=== PATIENT | male | born 1945 | race Caucasian/White ===

== ENCOUNTER → 2017-11-21 | Outpatient (REF) | payer MEDICARE, OTHER ==
[2017-11-21 18:28] LABS: BASO # 0.1 10^3/uL (0.0-0.2); BASO % 0.6 % (0.0-1.0); EOS # 0.2 10^3/uL (0.0-0.50); HEMATOCRIT 42.8 % (42.0-52.0); HEMOGLOBIN 14.7 g/dl (13.5-17.5); IMMATURE GRANULOCYTE % 0.3 % (0-3.0); LYMPH # 2.1 10^3/uL (1.5-4.5); LYMPH % 24.9 % (24.0-44.0); MEAN CORPUSCULAR HEMOGLOBIN 33.6 pg (27.0-33.0); MEAN CORPUSCULAR HGB CONC 34.3 g/dl (32.0-36.5); MEAN CORPUSCULAR VOLUME 97.9 fl (80.0-96.0); MONO # 0.8 10^3/uL (0.0-0.8); MONO % 9.2 % (0.0-5.0); NEUTROPHILS # 5.4 10^3/uL (1.8-7.7); PLATELET COUNT, AUTOMATED 176 10^3/uL (150-450); RED BLOOD COUNT 4.37 10^6/uL (4.30-6.10); RED CELL DISTRIBUTION WIDTH 12.4 % (11.5-14.5); WHITE BLOOD COUNT 8.6 10^3/uL (4.0-10.0)
[2017-11-21 19:30] LABS: ALBUMIN 3.9 GM/DL (3.2-5.2); ALBUMIN/GLOBULIN RATIO 1.03 (1.00-1.93); ALKALINE PHOSPHATASE 56 U/L (45-117); ALT/SGPT 25 U/L (12-78); ANION GAP 11 MEQ/L (8-16); AST/SGOT 25 U/L (7-37); BILIRUBIN,TOTAL 0.5 MG/DL (0.2-1.0); BLOOD UREA NITROGEN 34 MG/DL (7-18); CALCIUM LEVEL 9.3 MG/DL (8.8-10.2); CARBON DIOXIDE LEVEL 27 MEQ/L (21-32); CHLORIDE LEVEL 103 MEQ/L (98-107); CHOLESTEROL LEVEL 181 MG/DL (<200); CHOLESTEROL RISK RATIO 5.484 (<5); CREATININE FOR GFR 1.74 MG/DL (0.70-1.30); GLUCOSE, FASTING 94 MG/DL (70-100); HDL CHOLESTEROL 33 MG/DL (>40); NON-HDL-C 148 MG/DL; POTASSIUM SERUM 3.5 MEQ/L (3.5-5.1); SODIUM LEVEL 141 MEQ/L (136-145); TOTAL PROTEIN 7.7 GM/DL (6.4-8.2); TRIGLYCERIDES LEVEL 245 MG/DL (<150)
== END ==
LOC: M SFHCCLAY 13:57
DX: I12.9 Hypertensive chronic kidney disease with stage 1 through stage 4 chronic kidney disease, or unspecified chronic kidney disease (principal); N18.3 Chronic kidney disease, stage 3 (moderate); E78.5 Hyperlipidemia, unspecified; E03.9 Hypothyroidism, unspecified
CPT/HCPCS: 84443

== ENCOUNTER → 2018-06-14 | Outpatient (REF) | payer MEDICARE, OTHER ==
[~2018-06-14] MED LIST: ASPI325T OR; COUM1TAB17 OR; COZA25TA8 OR; KLOR10TA OR; LASI40TA OR; LEVO75TA2 OR; LIDO5DIS TD; LISI10TA4 OR; LOVA20TA2 OR; METO-743 OR; NASONEX; NITR0.3D TD; PRIL20CA OR; TOPI100T OR; TRIC145T19 OR; TYLENOL #3 OR; ZOCO40TA OR
[2018-06-15 13:04] LABS: BASO # 0.1 10^3/uL (0.0-0.2); BASO % 0.7 % (0.0-1.0); EOS # 0.2 10^3/uL (0.0-0.50); EOS % 2.5 % (0.0-3.0); HEMATOCRIT 44.4 % (42.0-52.0); HEMOGLOBIN 14.9 g/dl (13.5-17.5); LYMPH # 2.6 10^3/uL (1.5-4.5); LYMPH % 35.5 % (24.0-44.0); MEAN CORPUSCULAR HEMOGLOBIN 33.5 pg (27.0-33.0); MEAN CORPUSCULAR HGB CONC 33.6 g/dl (32.0-36.5); MEAN CORPUSCULAR VOLUME 99.8 fl (80.0-96.0); MONO # 0.7 10^3/uL (0.0-0.8); NEUTROPHILS # 3.7 10^3/uL (1.8-7.7); PLATELET COUNT, AUTOMATED 171 10^3/uL (150-450); RED BLOOD COUNT 4.45 10^6/uL (4.30-6.10); WHITE BLOOD COUNT 7.2 10^3/uL (4.0-10.0)
[2018-06-15 13:32] LABS: ALBUMIN 4.6 GM/DL (3.2-5.2); BILIRUBIN,TOTAL 0.5 MG/DL (0.2-1.0); CHOLESTEROL RISK RATIO 8.037 (<5); CREATININE FOR GFR 2.07 MG/DL (0.70-1.30); GLOMERULAR FILTRATION RATE 33.5 (>42); THYROID STIMULATING HORMONE 2.47 uIU/ML (0.358-3.740); TOTAL PROTEIN 7.8 GM/DL (6.4-8.2)
== END ==
LOC: M SFHCCLAY 15:03
PROVIDERS: ATTEND Family Medicine
DX: I10 Essential (primary) hypertension (principal); E03.9 Hypothyroidism, unspecified; E78.5 Hyperlipidemia, unspecified
CPT/HCPCS: 80053; 80061; 84443; 85025; G0463

== ENCOUNTER → 2018-06-29 | Outpatient (CLI) | payer MEDICARE, BC, OTHER ==
[~2018-06-29] MED LIST changes: +/WARF5TA OR; -COUM1TAB17 OR; -METO-743 OR; +TOPR50TA OR
--- NOTE | 2018-06-29 12:06 | REP ---
MRI RIGHT SHOULDER: TECHNIQUE: Axial T2 fat sat, gradient echo, sagittal oblique T2 fat sat, coronal oblique T1, T2 fat sat. There is a complete full-thickness tear of the supraspinatus tendon with retraction, the degree of retraction appears to be about 5 cm. There is increased signal in the infraspinatus tendon as well as the subscapularis tendon compatible with tendinosis and possibly partial tears. There are mild hypertrophic degenerative changes of the acromioclavicular joint. The acromion is type 1. The biceps tendon is not well visualized proximally. I do not see the biceps at the biceps labral complex. It is not well visualized in the superior aspect of the bicipital groove. I suspect it is torn. It is seen more inferiorly, just anterior to the bicipital groove, with mild surrounding fluid. The deltoid muscle demonstrates no abnormal signal. At the biceps labral complex, there is fraying and again a normal insertion of the biceps tendon is not seen. Superior labrum also appears diffusely frayed. Otherwise, no definite labral tear is seen. There is no bone marrow edema or occult fracture. There is moderate joint effusion, with fluid extending into the subacromial subdeltoid bursae. There appears to be an old nondisplaced fracture at the distal end of the clavicle. IMPRESSION: Complete full thickness tear of the supraspinatus tendon with about 5 cm of retraction. There is tendinosis and possible partial tearing of the infraspinatus and subscapularis tendons. There are mild hypertrophic degenerative changes of the acromioclavicular joint. I suspect a tear of the proximal biceps tendon. Biceps is not visualized inserting onto the superior labrum. A portion of the biceps tendon is visualized inferiorly just anterior to the bicipital groove with mild surrounding fluid. There is fraying of the biceps labral complex and superior labrum diffusely. Moderate joint effusion, with fluid extending into the subacromial subdeltoid bursae. There appears to be an old nondisplaced fracture at the distal end of the clavicle. Electronically Signed by Bal Garcia MD 06/29/2018 03:34 P
== END ==
LOC: M PLARAD 09:30
PROVIDERS: ATTEND Family Medicine
DX: S46.911A Strain of unspecified muscle, fascia and tendon at shoulder and upper arm level, right arm, initial encounter (principal); X58.XXXA Exposure to other specified factors, initial encounter; Y92.9 Unspecified place or not applicable; M19.011 Primary osteoarthritis, right shoulder

== ENCOUNTER → 2018-12-12 | Outpatient (CLI) | payer MEDICARE, BC, OTHER ==
[~2018-12-12] MED LIST changes: -/WARF5TA OR; +ACET-683 PO; +COUM1TAB17 OR; +ECOT81TA5 PO; +FENO200C PO; +FISH1000 PO; +FURO20TA2 PO; +KLOR10TA76 PO; +LEVO75TA4 PO; +LISI10TA4 PO; +LOVA40TA PO; +METO-743 OR; +MOME50SP NARES; +NITR4TASL SL; +OMEP40CA2 PO; +PLAV1TAB2 PO; +TOPA50TA8 PO; -TOPR50TA OR; +TOPR50TA PO; +TYLETAB14 PO
--- NOTE | 2018-12-12 14:06 | REP ---
CHEST, TWO VIEWS: COMPARISON: 10/07/2011 There is no acute infiltrate. The heart is not enlarged. There is calcification and tortuosity of the thoracic aorta. The mediastinal silhouette is unchanged. Multiple sternal wires and mediastinal clips are present. There are mild degenerative changes of the spine. IMPRESSION: No acute infiltrate. Electronically Signed by Bal Garcia MD 12/13/2018 09:32 A
== END ==
LOC: M RAD 11:10
PROVIDERS: ATTEND Internal Medicine Cardiovascular Disease
DX: Z01.818 Encounter for other preprocedural examination (principal); M19.011 Primary osteoarthritis, right shoulder

== ENCOUNTER 2018-12-26 07:30 | Inpatient (IN) | payer MEDICARE, BC, OTHER ==
[~2018-12-26] VITALS: Ht 165.1 cm; Wt 96.6 kg
[2018-12-28] MEDS ORDERED: LR 1,000 ML IV ONE (07:00)
[2018-12-28] MEDS ORDERED: MIDAZOLAM INJ 2 MG/2 ML VIAL (J2250) As Ordered ONE ×2 (10:55→11:30)
[2018-12-28] MEDS ORDERED: fentaNYL 100 MCG/2 ML INJECTION (J3010) As Ordered ONE ×2 (10:55→11:30)
[2018-12-28] MEDS ORDERED: ceFAZolin 1GM INJ (J0690 PER 500MG) As Ordered ONE (10:59)
[2018-12-28] MEDS ORDERED: EPINEPHrine INJ 1 MG/ML 1ML AMP As Ordered ONE (11:00)
[2018-12-28] MEDS ORDERED: BUPIVACAINE HCL 0.25% 30 ML VIAL As Ordered ONE (11:11)
[2018-12-28] MEDS ORDERED: dexameTHASONE 4 MG/ML 1ML VIAL (J1100) As Ordered ONE (11:30)
[2018-12-28] MEDS ORDERED: ONDANSETRON 4MG/2ML VIAL (J2405) As Ordered ONE (11:30)
[2018-12-28] MEDS ORDERED: LIDOCAINE 2% INJ 100 MG/5 ML SDV (FOR ANES.) As Ordered ONE (11:31)
[2018-12-28] MEDS ORDERED: PROPOFOL 200 MG/20 ML VIAL As Ordered ONE (11:31)
[2018-12-28] MEDS ORDERED: ROCURONIUM BROMIDE 50 MG/5 ML VIAL As Ordered ONE (11:31)
[2018-12-28] MEDS ORDERED: TRANEXAMIC ACID 100 MG/ML 10ML VIAL As Ordered ONE (12:06)
[2018-12-28] MEDS ORDERED: BUPIVACAINE LIPOSOME/PF 1.3% 20ML VIAL (13.3MG/ML)(EXPAREL)(C9290 PER1MG) As Ordered ONE (12:14)
[2018-12-28] MEDS ORDERED: ePHEDrine SULFATE 25 MG/5 ML(5MG/ML) SYRINGE As Ordered ONE (14:13)
[2018-12-28] MEDS ORDERED: HYDROMORPHONE HCL 0.5 MG/ 0.5 ML SYRINGE (J1170 PER 1) IV PRN (15:00)
[2018-12-28] MEDS ORDERED: ACETAMINOPHEN TAB 650MG DOSE (2X325MG) PO PRN (15:00)
[2018-12-28] MEDS ORDERED: fentaNYL 100 MCG/2 ML INJECTION (J3010) IV PRN (15:00)
[2018-12-28] MEDS ORDERED: PROMETHAZINE INJ 25 MG/ML VIAL (J2550) IV PRN (15:00)
[2018-12-28] MEDS ORDERED: ONDANSETRON 4MG/2ML VIAL (J2405) IV PRN (15:00)
[2018-12-28] MEDS ORDERED: oxyCODONE 5MG TAB PO PRN (15:00)
[2018-12-28] MEDS ORDERED: LR 1,000 ML IV SCH (15:00)
[2018-12-28] MEDS ORDERED: PERCOCET 5MG/325MG TAB PO PRN (15:00)
[2018-12-28] MEDS ORDERED: METOCLOPRAMIDE INJ 10MG/2ML VIAL (J2765) IV PRN (15:00)
[2018-12-28] MEDS ORDERED: MORPHINE 4 MG/ML 1ML VIAL/SYRINGE (J2270) IV PRN (15:00)
[2018-12-28 16:00] VITALS: BP 126/74
[2018-12-28 16:20] VITALS: BP 118/67
[2018-12-28 17:00] VITALS: BP 112/66
[2018-12-28 18:00] VITALS: BP 135/78
--- NOTE | 2018-12-28 18:28 | RO ---
DATE OF PROCEDURE: 12/28/2018 PREOPERATIVE DIAGNOSIS: Right shoulder osteoarthritis, large rotator cuff tear. POSTOPERATIVE DIAGNOSIS: Right shoulder osteoarthritis, large rotator cuff tear. PLANNED PROCEDURE: Right reverse total shoulder arthroplasty. PROCEDURE PERFORMED: (dictation cut off). . SURGEON: Crow Leal MD GROUP PRACTICE PEDIATRICIAN: Meryl Oliveira TYPE OF ANESTHETIC: General anesthetic. OPERATIVE PREAMBLE: This 73-year-old man had right shoulder osteoarthritis with proximal humeral head migration and a large rotator cuff tear. We talked about the pros, cons, risks, benefits of nonsurgical versus surgical management in the form of a reverse total shoulder arthroplasty. I reminded him of the specific surgical risks in preoperative holding including but not limited to infection, pain, stiffness, bleeding, instability, dislocation, fracture, anesthetic risks and . He wished to go ahead, and I signed the right upper extremity. Preoperative nerve block was also performed. DESCRIPTION OF PROCEDURE: The patient was brought to the operating theatre. He was administered a general anesthetic. Two grams of IV Ancef and 2 grams of IV tranexamic was administered prior to the start of the case. The patient was transferred to the beach chair and Spider arm positioner was used for the patient's right side. All bony prominences were padded. Leg positioner was used. Face mask was applied, ensuring to protect the eyes. All bony prominences were padded. Well arm corona was used on the patient's left side. General anesthesia was induced, and the patient was set up at a 45-degree angle. Right upper extremity was prepped and draped in the usual sterile fashion. A preoperative time-out was performed to confirm the site and the patient and the operation. I began by making a standard deltopectoral incision just lateral to the coracoid process. Carried this dissection down through skin and subcutaneous tissue achieving meticulous hemostasis. Identified the interval between the deltoid and pectoralis major as well as the cephalic vein. There was one large crossing tributary of the cephalic vein which I ligated and divided. I placed the Quintana retractor and then identified the conjoined tendon. I incised along the lateral border of the conjoined tendon and muscle. I then placed Quintana retractor underneath this and identified the subscapularis tendon as well as the crossing anterior humeral circumflex vessels. I placed a number of ligating sutures in this in a [id number] fashion using #2-0 Vicryl. I then divided the crossing vessels. I identified the biceps groove and sheath, I entered that and then performed a tenodesis using #2 FiberWire. I transected and removed the proximal end of the long head of the biceps. I then performed subscapularis tenotomy, retracted this back towards the glenoid. I excised the capsule. I developed a plane along the anterior humeral neck and metaphyseal region, staying right on bone. I developed the subscapularis tenotomy superiorly and inferiorly, ensuring to protect the axillary nerve. I achieved good mobility of this and visualization down to the level of the glenoid. I fully dislocated the shoulder using external rotation. I then placed the broaches and broached up to a size 16 broach. The intramedullary guide for the metaphyseal epiphysis reamer was then used, sized as a centered size 1 standard and the epiphyseal region reamed. I used the intramedullary cutting guide. I placed this onto bone and using a small blue juju, I achieved appropriate version in my cut of 20 degrees retroverted. I placed the guide down to bone and removed the intramedullary guide. I made my head cut and finished this off with a broad osteotome, removed the head. Metaphyseal cut protector was then placed. Using a combination of curved retractors, I then exposed the glenoid. I removed the labrum from all around the glenoid. I examined the glenoid. It appeared osteoarthritic as well as there was a completely deficient rotator cuff superiorly. I used the sizing guide as well as direct visualization to place the pin center-center in the glenoid staying slightly posterior and inferior. I then reamed using standard size reamer down to bleeding bone. I then used the center peg drill to drill a center peg. All pins and guides were removed. I also reamed the superior aspect of the glenoid over top of the superior aspect of the glenoid, ensured that there was no interposed soft tissue. Thoroughly irrigated the center drill peg. I then inserted, the cementless Metaglene baseplate using light taps with a mallet. This seated down nicely. I then inserted the locking screws, first the inferior, then the superior, then the anterior, then the posterior. These measured 42 mm inferiorly, 48 mm superiorly, and 24 mm anteriorly and posteriorly. All screws achieved good bite, were seated down and locked in place. I then turned my attention back to the humerus. I inserted the broach followed by the intramedullary guide to determine the angulation of the epiphysis. This was at neutral and size 16 humeral stem. I trialed this as well as a 38 plus 3 mm polyethylene component and standard size Glenosphere 38 mm. This was good and solid; however, I sized up the polyethylene, and it was definitely even more solid and tight appropriate size. Range of motion was full in flexion and extension, internal and external rotation. No evidence of instability or dislocating and no notching or impingement of the components. The trial components were removed. Intramedullary canal was thoroughly irrigated, pulse lavaged as well as the baseplate. 38 mm Glenosphere was screwed down, impacted, and I went back and forth between screwing and impacting until it was definitely achieved very solid bite. Afterwards, the modular humeral stem size 16 was then assembled with the modular centered epiphysis size 1. The size 1 centered cementless epiphysis was then assembled at 0 degrees with the site 16 modular humeral stem. This was impacted in again 20 degrees of external rotation down into the humeral canal. Achieved good solid bite with good rotational stability. Epiphysis was thoroughly irrigated with pulse lavage followed by insertion of humeral polyethylene standard size cup 38 plus 6 mm. This was tapped into position and seated nicely down all the way around. Shoulder was reduced and again stability was checked in all directions. It was definitely stable. Conjoined tendon was appropriately tensioned as was the deltoid musculature. There was no obvious impingement. The wound was thoroughly irrigated. 20 mL of Exparel mixed with 20 mL of normal saline was infiltrated in and around the incision in the subcutaneous tissues. Subscapularis was repaired with interrupted [id number] #2 FiberWire. The deltopectoral interval was closed with interrupted #1 Vicryl suture. Subcutaneous tissue was closed with running #2-0 Vicryl suture. The skin was cleaned with a wet and dry dressing. The skin was closed with running #3-0 Monocryl. Steri-Strips cut in half were then applied along the length of the incision followed by Adaptic, 4 x 8 gauze, ABD dressing and cloth tape. The patient was put into a sling and avoided extension of the upper arm. The patient was woken up from general anesthetic. He was transferred off the operating table and taken to the postanesthetic care unit in stable condition. All sponge, needle and instrument counts were correct. No complications. Estimated blood loss: 200 mL. PLAN: The patient is to be admitted to the hospital for one day for adequate pain control. He will likely be discharged home tomorrow if he has adequate pain control and follow up in the office in 2 weeks' time. He should avoid extension of the upper arm and external rotation, but he can come out of the sling four times a day for elbow, wrist and hand exercises. The marketing operations assistant, Meryl Oliveira, was instrumental in holding retractors, aiding in visualization, cutting sutures and assembling and trialing implants.
[2018-12-28 20:00] VITALS: BP 131/69
[2018-12-28 22:00] VITALS: BP 133/68
[2018-12-29 02:00] VITALS: BP 134/67
[2018-12-29] MEDS: PERCOCET 5MG/325MG TAB PO PRN ×2 (03:20→09:37)
[2018-12-29 06:00] VITALS: BP 148/79
[2018-12-29] MEDS ORDERED: PERC5TAB12 PO (06:12)
--- NOTE | 2018-12-29 07:53 | IPN ---
DATE: 12/29/2018 CHIEF COMPLAINT: Postop day #1 right reverse total shoulder arthroplasty. HISTORY OF PRESENT ILLNESS: This is a pleasant 73-year-old man who underwent right reverse shoulder arthroplasty yesterday afternoon. He is doing well postoperative day #1 seen in the [facility]. No complaints or concerns. Pain is coming little bit now. He is hungry but has not yet eaten breakfast. No concerns from the nursing staff overnight. PHYSICAL EXAMINATION: Well-appearing 73-year-old man. Sitting up. He arouses easily. Alert and oriented times three. Bulky dressing in situ. No strikethrough. Underneath the gauze appears dry. Normal sensation to the hand and median radial ulnar nerve distributions. Good motor function. Hands warm well perfused. Strong radial pulse. ASSESSMENT/PLAN: This 73-year-old man postop day #1 right TRSA. He can be discharged home today if he is comfortable and eating and drinking well. This will be in conjunction with Shreya lockett nurse practitioner. The patient understands. Followup in the office in 2 weeks. I have emphasized to be mostly in the sling avoiding extension and external rotation and he can come out of the sling 4 times a day for elbow wrist and hand exercises.
[2018-12-29] MEDS ORDERED: FLUBLOK(EGG FREE)(QUAD)INFLUENZA VACC 0.5ML SYRINGE (90682)18YRS&OLDER IM ONE (09:00)
[2018-12-29 10:00] VITALS: BP 148/80
== END 2018-12-29 12:35 | disposition home or self-care (01) | DRG 483 ==
LOC: M OR 12-28 09:45 → M MS5PR 12-28 15:50
PROVIDERS: ADMIT Orthopaedic Surgery Sports Medicine; ATTEND Orthopaedic Surgery Sports Medicine
PROC: 0RRJ00Z Replacement of Right Shoulder Joint with Reverse Ball and Socket Synthetic Substitute, Open Approach (ICD-10-PCS; principal; 2018-12-28 11:00)
DX: M19.011 Primary osteoarthritis, right shoulder (principal); I12.9 Hypertensive chronic kidney disease with stage 1 through stage 4 chronic kidney disease, or unspecified chronic kidney disease; E03.9 Hypothyroidism, unspecified; N18.3 Chronic kidney disease, stage 3 (moderate); E78.5 Hyperlipidemia, unspecified; K21.9 Gastro-esophageal reflux disease without esophagitis; M75.121 Complete rotator cuff tear or rupture of right shoulder, not specified as traumatic; G47.33 Obstructive sleep apnea (adult) (pediatric)

== ENCOUNTER → 2019-08-22 | Outpatient (REF) | payer MEDICARE, OTHER ==
[~2019-08-22] MED LIST changes: -OMEP40CA2 PO; +OMEP40CA97 PO; +PERC5TAB12 PO
[2019-08-23 12:07] LABS: BASO # 0.1 10^3/uL (0.0-0.2); BASO % 0.9 % (0.0-1.0); EOS # 0.1 10^3/uL (0.0-0.5); EOS % 2.1 % (0.0-3.0); HEMATOCRIT 42.8 % (42.0-52.0); LYMPH # 1.8 10^3/uL (1.5-5.0); LYMPH % 27.9 % (24.0-44.0); MEAN CORPUSCULAR HEMOGLOBIN 31.7 pg (27.0-33.0); MEAN CORPUSCULAR HGB CONC 32.7 g/dl (32.0-36.5); MEAN CORPUSCULAR VOLUME 97.1 fl (80.0-96.0); MONO # 0.6 10^3/uL (0.0-0.8); MONO % 9.2 % (0.0-5.0); NEUTROPHILS # 3.9 10^3/uL (1.5-8.5); NEUTROPHILS % 59.7 % (36.0-66.0); PLATELET COUNT, AUTOMATED 155 10^3/uL (150-450); RED BLOOD COUNT 4.41 10^6/uL (4.30-6.10); WHITE BLOOD COUNT 6.5 10^3/uL (4.0-10.0)
[2019-08-23 12:48] LABS: ALBUMIN 3.9 GM/DL (3.2-5.2); BILIRUBIN,TOTAL 0.6 MG/DL (0.2-1.0); CALCIUM LEVEL 9.4 MG/DL (8.8-10.2); CHOLESTEROL RISK RATIO 6.407 (<5); CREATININE FOR GFR 1.83 MG/DL (0.70-1.30); GLOMERULAR FILTRATION RATE 38.5 (>42); POTASSIUM SERUM 3.7 MEQ/L (3.5-5.1); THYROID STIMULATING HORMONE 2.29 uIU/ML (0.358-3.740); TOTAL PROTEIN 7.4 GM/DL (6.4-8.2)
== END ==
LOC: M SFHCCLAY 14:27
PROVIDERS: ATTEND Family Medicine
DX: I12.9 Hypertensive chronic kidney disease with stage 1 through stage 4 chronic kidney disease, or unspecified chronic kidney disease (principal); N18.3 Chronic kidney disease, stage 3 (moderate); E78.5 Hyperlipidemia, unspecified; E03.9 Hypothyroidism, unspecified
CPT/HCPCS: 80053; 80061; 84443; 85025; G0463

== ENCOUNTER → 2019-12-16 | Outpatient (REF) | payer MEDICARE, OTHER ==
[2019-12-17 12:45] LABS: HEMATOCRIT 40.3 % (42.0-52.0); HEMOGLOBIN 12.8 g/dl (13.5-17.5); MEAN CORPUSCULAR HEMOGLOBIN 30.4 pg (27.0-33.0); MEAN CORPUSCULAR HGB CONC 31.8 g/dl (32.0-36.5); MEAN CORPUSCULAR VOLUME 95.7 fl (80.0-96.0); PLATELET COUNT, AUTOMATED 158 10^3/uL (150-450); RED BLOOD COUNT 4.21 10^6/uL (4.30-6.10); WHITE BLOOD COUNT 6.8 10^3/uL (4.0-10.0)
[2019-12-17 13:00] LABS: HEMOGLOBIN A1c 7.6 %
[2019-12-17 13:01] LABS: ALBUMIN 4.1 GM/DL (3.2-5.2); BILIRUBIN,TOTAL 0.7 MG/DL (0.2-1.0); CALCIUM LEVEL 9.8 MG/DL (8.8-10.2); CHOLESTEROL RISK RATIO 6.857 (<5); CREATININE FOR GFR 1.81 MG/DL (0.70-1.30); POTASSIUM SERUM 3.9 MEQ/L (3.5-5.1); THYROID STIMULATING HORMONE 0.882 uIU/ML (0.358-3.740); TOTAL PROTEIN 7.7 GM/DL (6.4-8.2)
== END ==
LOC: M SFHCCLAY 11:56
PROVIDERS: ATTEND Family Medicine
DX: I12.9 Hypertensive chronic kidney disease with stage 1 through stage 4 chronic kidney disease, or unspecified chronic kidney disease (principal); N18.9 Chronic kidney disease, unspecified; E78.2 Mixed hyperlipidemia; E03.9 Hypothyroidism, unspecified; R73.01 Impaired fasting glucose

== ENCOUNTER 2021-02-11 11:50 | Emergency (ER) | payer MEDICARE, BC, OTHER ==
[~2021-02-11] VITALS: Ht 167.6 cm; Wt 91.8 kg
[~2021-02-11 11:50] MED LIST changes: -KLOR10TA76 PO; +LISI10TA22 PO; -LISI10TA4 PO; +OMEP40CA4 PO; -OMEP40CA97 PO; +POTA-136 PO
--- OUTSIDE RECORDS SUMMARY | 2021-02-11 12:00 | CCD ---
Author Author [facility] Organization [facility] Address Unknown Phone Unavailable Care Team Providers Care Tapper Balance Wheel Screw Hole Name Role Phone Devonte Strauss Unavailable PROBLEMS Type Condition ICD9-CM Code FBT25-DV Code Onset Dates Condition S tatus W/U Status Risk SNOMED Code Notes Problem Hx of coronary artery bypass graft Z95.1 Activ e confirmed 961790532 Problem Lumbar back pain with radiculopathy affecting le ft lower extremity M54.17 Active confirmed 636004530 Problem Sleep apnea in adult G47.33 Active confirmed 32043384 Problem Hypertension I10 Active confirmed 6729147 3 Problem GERD (gastroesophageal reflux disease) K21.9 A ctive confirmed 237536553 Problem Hypothyroid E03.9 Active confirmed 03308879 Problem Memory impairment R41.3 Active confirmed 38 2599817 Problem Hypertensive renal disease, stage 1 through stage 4 or unspecified chronic kidney disease I12.9 Active confirmed 3715830 6 Problem Type 2 diabetes mellitus wit hout complication, without long-term current use of insulin E11.9 Active confirmed 093431022 Problem Hyperlipemia E78.5 Active confirmed 0801289 4 Problem Hx of colonic polyp Z86.010 Active confirmed 056087403 Problem Chronic kidney disease (CKD) stage G3a/A1, moderately decreased glomerular filtration rate (GFR) between 45-59 mL/min/1.73 square meter and albuminuria creatinine ratio less than 30 mg/g N18.3 Act nay confirmed 813305078 Problem Tobacco use disorder F17.200 Active confirmed 058860607 Problem Hypertensive kidney disease I12.9 Active confirmed 04496934 Problem Rotator cuff arthropathy of right shoulder M12.811 Active confirmed 80764760546042182 Problem Primary osteoarthritis of right shoulder M19.011 Active confirmed [id number] ALLERGIES No Known Allergies ENCOUNTERS from 1945 to 2020-12-14 Encounter Location Date Provider Diagnosis [facility] [phone] ELISA [place] [id number] 08 Dec, 2020 Devonte Strauss IMMUNIZATIONS Vaccine Route Administration Date Status Influenza 18 yrs & older Flublok IM Intramuscular Mar 15, 2018 Administered Influenza (High Dose 65 & up) IM Intramuscular Mar 17, 2017 A dministered Pneumococcal VFC 0.5mL Prevnar 13 IM Intramuscular Mar 17, 2017 Administered Pneumococcal Adult 0.5mL Pneumovax 23 Unknown Jan 08 12 Administered SOCIAL HISTORY Tobacco Use: Social History Observation Description Date Details (start date - stop date) Current Smoker Sex Assigned At : Social History Observation Description Sex Assigned At Unknown Audit Question Answer Notes Total Score: 0 Interpretation: Alcohol Education Sexual Hx: Question Answer Notes Had sex in the last 12 months (vaginal, oral, or anal)? No Have you ever had an STD? No Drug and Alcohol Question Answer Notes Total Score: 0 Interpretation: No problems reported Alcohol Screening: Question Answer Notes Did you have a drink containing alcohol in the past year? No Points 0 Interpretation Negative BMI Care Goal Follow-Up Question Answer Notes Above Normal BMI Follow-Up Dietary management educatio n, guidance, and counseling Tobacco Use: Question Answer Notes Are you a: current smoker Additional Findings: Tobacco User Light cigarette smoker ((1 -9 cigs/day) Smoking Cessation Information Given 11/12/2020 Patient counseled on the dangers of tobacco use and urged to quit: 11/12/2020 How many cigarettes a day do you smoke? 6-10 Are you interested in quitting? Not ready to quit Counseled the patient on smoking effects, education provided 11/12/2020 REASON FOR REFERRAL No Information VITAL SIGNS No information MEDICATIONS Medication SIG (Take, Route, Frequency, Duration) Notes Start Da te End Date Status Lasix 20 MG 1 tablet Orally Once a day for 90 days Active Levothyroxine Sodium 88 MCG 1 tablet in the morning on an empty stomach Orally Once a day for 90 day(s) Active Lyrica 50 MG 1 capsule Orally bid for 30 days Active Pantoprazole Sodium 40 MG TAKE ONE TABLET BY MOUTH EVERY DAY for 90 Active Topiramate 50 MG TAKE TWO TABLETS BY MOUTH EVERY DAY for 90 Active Plavix 75 MG 1 tablet Orally Once a day for 90 days Active Cyclobenzaprine HCl 10 MG TAKE ONE TABLET BY MOUTH TWICE A D AY NEEDED for 90 Active Toprol XL 50 MG 1 tablet Orally Once a day for 90 days Active Carafate 1 GM 1 tablet on an empty stomach Orally four times a day for 90 day(s) Active Klor-Con 10 10 MEQ 1 tablet Orally once daily for 90 Active Hydrocortisone Butyrate 0.1 % 1 application to scalp E xternally Twice a day for 30 Days Nov, Unknown Tylenol PM Extra Strength 500-25 MG 1 tablet at bedtim e as needed Orally Once a day Unknown Nasonex 50 MCG/ACT 2 sprays in each nostril Nasally Once a day for 90 days Unknown Acetaminophen-Codeine 300-60 MG 2 tablet as needed Ora lly every 8 hrs MDD#6 for 30 days Dec, Unknown Lovastatin 40 MG 1 tablet with the evening meal Orally Once a da y for 90 days Active Lisinopril 20 MG 1 tablet Orally Once a day for 30 day(s) Active Fenofibrate Micronized 200 MG 1 capsule with a meal Orally Once a day for 90 Active Acetaminophen-Codeine 300-60 MG 2 tablet as needed Ora lly every 8 hrs MDD#6 for 30 Days Dec, Unknown metFORMIN HCl ER 500 MG 1 tablet with evening meal O rally Once a day for 90 day(s) Nov, Active Lisinopril-hydroCHLOROthiazide 20-12.5 MG 1 tablet Ora lly Once a day for 90 days was d/c at hospital Not-Taking Aspirin 81 MG 1 tablet Orally Once a day Active Vitamin D 25 MCG (1000 UT) 1 tablet Orally Once a day for 30 day(s) Unknown Topiramate 50 50mg 2 tabs orally once daily for 90 day(s) Sep, Unknown Nitroglycerin 0.4 MG one as directed for chest pa in Sublingual as directed for 30 day(s) Unknown Triamcinolone Acetonide 0.1 % 1 application to affecte d area- upper and lower extremity rash Externally Twice a day for 30 days Unknown Fish Oil 1000 MG 1 capsule Orally Once a day for 30 day(s) Unknown PROCEDURES No Information RESULTS No Results REASON FOR VISIT TCM/ACO Dwight D/C 12/06-AMS, HTN Urgency MEDICAL (GENERAL) HISTORY Type Description Date Medical History Hyperlipidemia Medical History GERD Medical History CAD Medical History HTN Medical History ELISABET---Cannot use CPAP Medical History CKD--Stage III Medical History Hypothyroid Medical History Chornic back/left leg pain Surgical History CABG X2 Surgical History Gallbladder removal Surgical History Left carpal tunnel release Surgical History Nose, plastic surgery as child Surgical History EGD 2016 Surgical History Colonoscopy- Dr Arevalo- recommended 2 year f/u 11/2018 Surgical History EGD- Dr Arevalo- non bleeding gastric ulcer 11/2018 Surgical History Right shoulder replacement- Dr. Leal 12/2018 Goals Section No Information Health Concerns No Information MEDICAL EQUIPMENT No Information MENTAL STATUS No Information FUNCTIONAL STATUS No Information ASSESSMENTS Encounter Date Diagnosis Assessment Notes Treatment Notes Treatm ent Clinical Notes Dec, Other Discussion with patient PLAN OF TREATMENT Next Appt Details Provider Name:Devonte Strauss, 01:00:00 PM, [address] , , [place], [address], Provider Name:Devonte Strauss, 01:30:00 PM, [address], , [place], [address], Insurance Providers Payer Name Payer Address Payer Phone Insured Name Patient Relati onship to Insured Coverage Start Date Coverage End Date [facility] [address] [facility] [id number] DOROTHY BLAKE MEDICARE Part A and B [address] [facility] [address] [phone] DOROTHY BLAKE self
--- OUTSIDE RECORDS SUMMARY | 2021-02-11 12:00 | CCD ---
Author Author [facility] Organization [facility] Address Unknown Phone Unavailable Care Team Providers Care Hydrodynamics Teacher Name Role Phone Devonte Strauss Unavailable PROBLEMS Type Condition ICD9-CM Code OPO67-BC Code Onset Dates Condition S tatus W/U Status Risk SNOMED Code Notes Problem Hx of coronary artery bypass graft Z95.1 Activ e confirmed 280899075 Problem Lumbar back pain with radiculopathy affecting le ft lower extremity M54.17 Active confirmed 053441957 Problem Sleep apnea in adult G47.33 Active confirmed 12198443 Problem Hypertension I10 Active confirmed 5352372 3 Problem GERD (gastroesophageal reflux disease) K21.9 A ctive confirmed 519912208 Problem Hypothyroid E03.9 Active confirmed 48279313 Problem Memory impairment R41.3 Active confirmed 38 4672293 Problem Hypertensive renal disease, stage 1 through stage 4 or unspecified chronic kidney disease I12.9 Active confirmed 8486189 6 Problem Type 2 diabetes mellitus wit hout complication, without long-term current use of insulin E11.9 Active confirmed 171719377 Problem Hyperlipemia E78.5 Active confirmed 3080429 4 Problem Hx of colonic polyp Z86.010 Active confirmed 171514192 Problem Chronic kidney disease (CKD) stage G3a/A1, moderately decreased glomerular filtration rate (GFR) between 45-59 mL/min/1.73 square meter and albuminuria creatinine ratio less than 30 mg/g N18.3 Act nay confirmed 973988416 Problem Tobacco use disorder F17.200 Active confirmed 721527858 Problem Hypertensive kidney disease I12.9 Active confirmed 83374133 Problem Rotator cuff arthropathy of right shoulder M12.811 Active confirmed 44825756799523439 Problem Primary osteoarthritis of right shoulder M19.011 Active confirmed [id number] ALLERGIES No Known Allergies ENCOUNTERS from 1945 to 2020-12-11 Encounter Location Date Provider Diagnosis [facility] [phone] [place] [address] 10 Dec, 2020 Devonte Strauss IMMUNIZATIONS Vaccine Route [...] Information RESULTS No Results REASON FOR VISIT PA Cyclobenzaprine 10mg tablets, #180/90 MEDICAL (GENERAL) HISTORY Type Description Date Medical [...] No Information FUNCTIONAL STATUS No Information ASSESSMENTS No Information PLAN OF TREATMENT Next Appt Details Provider Name:Devonte Strauss, 01:00:00 PM, [address] , , [place], [address], Provider Name:Devonte Strauss, 01:30:00 PM, [address], , [place], [address], Insurance Providers Payer Name Payer Address Payer Phone Insured Name Patient Relati onship to Insured Coverage Start Date Coverage End Date [facility] [address] [facility] [id number] [phone] DOROTHY BLAKE MEDICARE Part A and B [address] [facility] [address] [phone] DOROTHY BLAKE self
--- OUTSIDE RECORDS SUMMARY | 2021-02-11 12:00 | CCD | Continuity of Care Document ---
Author Author [facility] Organization [facility] [place] [address] Care Team Providers Care Bath Attendant Name Role Phone NONE Unavailable Unavailable Insurance Providers Payer Name Policy Number Subscriber Name Relationship MEDICARE/[facility] [id number] DOROTHY BLAKE SELF MEDICARE B DE SOTO [id number] DOROTHY BLAKE SELF Advance Directives Directive Response Recorded Date/Time Existing Advanced Directive: N 12/03/20 1: 34pm CPR?= FULL CODE 12/03/20 1:34pm DO YOU HAVE A HEALTHCARE PROXY?: Y 1 1:34pm HEALTH CARE PROXY NAME: KEITH CERRATO 12/03/20 1:34pm DO YOU HAVE A LIVING WILL?: N 12/03/20 1:3 4pm Chief Complaint and Reason for Visit Reason for Visit AMS,VINAYAK Problems Active Medical Problems Problem Onset Date Recorded Date Status Altered mental status Unknown 12/03/20 Active Hypertensive urgency Unknown 12/06/20 Active Systolic heart failure Unknown 12/06/20 Active VINAYAK (acute kidney injury) Unknown 12/06/20 Active DM (diabetes mellitus) Unknown 12/06/20 Active Physical deconditioning Unknown 12/06/20 Active CAD (coronary artery disease) Unknown 12/06/20 Ac tive Hypothyroidism Unknown 12/06/20 Active GERD (gastroesophageal reflux disease) Unknown 12/06/20 Active Osteoarthritis Unknown 12/06/20 Active Medications Current Home Medications Medication Dose Units Route Directions Days/Qty Instructions Star t Date Acetaminophen With Codeine (Acetaminophen-Cod #4 Tablet) 1 EACH TABLET 2 TAB ORAL Every 6 Hrs 0500,1100,1700,23 as needed 180 Aspirin (Adult Aspirin Regimen) 81 MG TABLET.DR 1 TAB ORAL Daily Clopidogrel Bisulfate (Clopidogrel) 75 MG TABLET 75 MG ORAL Daily Cyclobenzaprine HCl (Flexeril) 10 MG TABLET 10 MG ORAL Twice Daily as needed Fenofibrate,Micronized (Fenofibrate) 200 MG CAPSULE 200 MG ORAL Daily Furosemide 20 MG TABLET 20 MG ORAL Daily Levothyroxine Sodium (Levothyroxine) 88 MCG CAPSULE 88 MG ORAL Daily Lisinopril (Zestril) 20 MG TABLET 20 MG ORAL Daily 30 12/06/20 Lovastatin 40 MG TABLET 40 MG ORAL 1700 Metformin HCl (Metformin HCl ER) 500 MG [id number] 500 MG ORAL 1700 Metoprolol Succinate 50 MG TAB.ER.24H 50 MG ORAL Daily Pantoprazole Sodium 40 MG TABLET.DR 40 MG ORAL Daily Potassium Chloride (Klor-Con 10) 10 MEQ TABLET.ER 10 MEQ ORAL Daily Pregabalin (Lyrica) 50 MG CAPSULE 50 MG ORAL Twice Daily Sucralfate (Carafate) 1 GM TABLET 1 G ORAL 4 Times A Day Topiramate (Topamax) 50 MG TABLET 100 MG ORAL Daily Past Home Medications Medication Directions Ordered Status Lisinopril/Hydrochlorothiazide (Lisinopr il-Hctz 20-12.5 Mg Tab) 1 Each Tablet Tablet, 1 Tab Oral Daily Unknown Discontinued Social History Problem Response Recorded Date Alcohol use= NOT AT ALL 12/03/20 Query Response Start Date Stop Date If so current or quit?= Currently [facility] Discharge Instructions * Activity: As tolerated Diet: Cardiac 2 gram sodium Follow-up Instructions Primary Care Provider: JEVON PCP Office #: [phone] Want influenza Vaccination?: PT DECLINES VACCINATION Date of Pneumococcal Vaccination: UP TO DATE LAB RESULTS Laboratory Tests - All Test Result Date Chase e Blood Gas pH (7.320 - 7.430) 7.301 L 12/02 20 35 pCO2 (40.0 - 45.0 mmHg) 52.3 H 12/02 20 35 pO2 (30.0 - 50.0 mmHg) 23.3 L 12/02 20 35 HCO3 (21.0 - 28.0 mmol/L) 25.2 12/02 20 35 Total CO2 (22.0 - 26.0 mmol/L) 26.8 H 12/02 20 35 Base Excess (-3.0 - 3.0 mmol/L) -2.0 12/02 20 35 O2 Saturation (>75 %) 40.4 12/02 2035 Carboxyhemoglobin (% THgb) 2.9 12/03 02 45 Chemistry Sodium (136 - 145 mmol/L) 141 12/05 05 55 Potassium (3.5 - 5.1 mmol/L) 3.6 12/05 05 55 Chloride (96 - 109 mmol/L) 107 12/05 05 55 Carbon Dioxide (21 - 32 mmol/L) 26 12/05 05 55 Anion Gap (3 - 11 mmol/L) 8 12/05 05 55 BUN (7 - 18 mg/dL) 15 12/05 04 55 Creatinine (0.55 - 1.30 mg/dL) 1.07 12/05 05 55 Estimated GFR (>60 mL/min) 67 12/05 0555 Glucose (74 - 106 mg/dL) 130 H 12/05 05 55 Glucometer (70 - 100 mg/dl) 162 H 12/06 07 07 Hemoglobin A1c (4.2 - 6.3) 7.6 H 12/04 05 33 Lactic Acid (0.4 - 2.0 mmol/L) 1.8 12/02 20 30 Calcium (8.1 - 9.7 mg/dL) 9.6 12/05 05 55 Phosphorus (2.5 - 4.9 mg/dL) 2.6 12/04 05 33 Magnesium (1.8 - 2.4 mg/dL) 1.8 12/04 05 33 Total Bilirubin (0.2 - 1.0 mg/dL) 0.7 12/02 20 30 AST (15 - 37 U/L) 64 H 12/02 20 30 ALT (12 - 78 U/L) 29 12/02 20 30 Alkaline Phosphatase (45 - 117 U/L) 64 12/02 20 30 Ammonia (11 - 32 umol/L) 31.0 12/03 04 30 Troponin I Ultra-Sens Cancelled 12/03 05 19 B-Natriuretic Peptide (0 - 450 pg/ml) 526 H 12/03 04 30 Total Protein (6.4 - 8.2 g/dL) 7.2 12/02 20 30 Albumin (3.4 - 5.0 gm/dL) 3.7 12/02 20 30 TSH Cancelled 12/02 20 35 Thyroxine (T4) Cancelled 12/02 20 35 Coagulation PT (9.4 - 12.5 Seconds) 12.6 H 12/02 20 35 INR 1.15 12/02 20 35 APTT (25.1 - 36.5 Seconds) 27.3 12/02 20 35 Hematology WBC (3.80 - 10.80 x10E3/ul) 9.12 12/02 20 35 RBC (4.69 - 6.13 x10E6/ul) 4.50 L 12/02 20 35 Hgb (14.1 - 18.1 g/dl) 14.4 12/02 20 35 Hct (43.5 - 53.7 %) 43.4 L 12/02 20 35 MCV (80 - 97 fl) 96 12/02 20 35 MCH (27.0 - 31.2 pg) 32.0 H 12/02 20 35 POC MCHC (31.8 - 35.4 g/dl) 33.2 12/02 20 35 RDW (9.0 - 16.0 %) 12.7 12/02 20 35 Plt Count (150 - 400 x10E3/ul) 176 12/02 20 35 MPV (7.2 - 11.1 fl) 10.9 12/02 20 35 Immature Gran % (0 - 2 %) 0.9 12/02 20 35 Neutrophils % (37.0 - 74.9 %) 82.8 H 12/02 20 35 Lymphocytes % (10.0 - 50.0 %) 7.3 L 12/02 20 35 Monocytes % (0.0 - 12.0 %) 7.0 12/02 20 35 Eosinophils % (0.0 - 7.0 %) 1.5 12/02 20 35 Basophils % (0.0 - 2.5 %) 0.5 12/02 20 35 Nucleated RBC % (0 - 0 %) 0 12/02 20 35 Neutrophils # (2.0 - 6.9 X10E3/ul) 7.5 H 12/02 20 35 Lymphocytes # (0.6 - 3.4 X10E3/ul) 0.7 12/02 20 35 Monocytes # (0.0 - 0.9 X10E3/ul) 0.6 12/03 19 35 Eosinophils # (0.0 - 0.7 X10E3/ul) 0.1 12/03 19 35 Basophils # (0.0 - 0.2 X10E3/ul) 0.1 12/03 19 35 Nucleated RBCs # (0.0 - 0.5 X10E3/ul) 0.0 12/03 19 35 Serology Adenovirus (PCR) (Not Detect) Not Detected 12/02 B. pertussis DNA (PCR) (Not Detect) Not Detected 12/02 B.parapertussis DNA PCR (Not Detect) Not Detected 12/02 C. pneumoniae DNA (PCR) (Not Detect) Not Detected 12/02 Coronavirus OC43 (PCR) (Not Detect) Not Detected 12/02 Coronavirus HKU1 (PCR) (Not Detect) Not Detected 12/02 Coronavirus 229E (PCR) (Not Detect) Not Detected 12/02 Coronavirus NL63 (PCR) (Not Detect) Not Detected 12/02 Human Metapneumovir PCR (Not Detect) Not Detected 12/02 Influenza Type A (PCR) (Not Detect) Not Detected 12/02 Influenza Type B (PCR) (Not Detect) Not Detected 12/02 M. pneumoniae (PCR) (Not Detect) Not Detected 12/02 Parainfluenza 1 (PCR) (Not Detec) Not Detected 12/02 Parainfluenza 2 (PCR) (Not Detect) Not Detected 12/02 Parainfluenza 3 (PCR) (Not Detect) Not Detected 12/02 Parainfluenza 4 (PCR) (Not Detect) Not Detected 12/02 RSV (PCR) (Not Detect) Not Detected 12/02 Entero/Rhino (PCR) (Not Detect) Not Detected 12/02 SARS-CoV-2 (PCR) (Not Detect) Not Detected 12/02 Toxicology Urine Opiates Screen (Negative) Positive H 12/04 99 50 Urine Methadone Screen (Negative) Negative 12/04 99 50 Acetaminophen (ug/mL) < 2.0 12/02 2030 Ur Barbiturates, Qual (Negative) Negative 12/04 99 50 Ur Phencyclidine Scrn (Negative) Negative 12/04 99 50 Ur Amphetamine Screen (Negative) Negative 12/04 99 50 U Benzodiazepines Scrn (Negative) Negative 12/04 99 50 Urine Cocaine Screen (Negative) Negative 12/04 99 50 U Marijuana (THC) Screen (Negative) Negative 12/04 99 50 Ethyl Alcohol Cancelled 12/02 21 10 Urines Urine Color Yellow 12/04 99 50 Urine Appearance Hazy 12/04 99 50 Urine pH (6.0 - 8.5) 6.0 12/04 99 50 Ur Specific Barker (1.000 - 1.030) 1.025 12/04 99 50 Urine Protein (Negative mg/dl) Negative 12/04 99 50 Urine Glucose (UA) (Negative mg/dl) Negative 12/04 99 50 Urine Ketones (Negative mg/dl) Negative 12/04 99 50 Urine Blood (Negative /ul) Negative 12/04 99 50 Urine Nitrite (Negative) Negative 12/04 99 50 Urine Bilirubin (Negative mg/dl) Negative 12/04 99 50 Urine Urobilinogen (0.0 - 0.2 mg/dl) 0.2 12/04 99 50 Ur Leukocyte Esterase (Negative /ul) Negative 12/04 99 50 Microbiology Date/Time Procedure - Status Source Growth 12/03 2319 Blood Culture - RES BLOOD 12/03 2019 SARS-CoV-2 Rapid RNA (RT-PCR) - COMP NASAL ASP Last Recorded Result Date Time O2 Delivery ROOM AIR 12/06 0800 Pulse Ox 98 12/06 0800 B/P 145/90 AH 12/06 0800 Temp 98.0 12/06 0800 Pulse 99 12/06 0800 Resp 18 12/05 2317 MULTIDISCIPLINARY Other Discharge Transition Information LAB Results Pending: N * If you are awaiting lab results upon discharge these will be discussed with you on your follow up visit. The following appointments are scheduled for you: Appointment made with: SAGRARIO ESCOTO Other Follow up with: PLEASE CALL [phone] TO MAKE AN APPOINTMENT FOR NEXT WEEK TO FOLLOW-UP ON HOSPITAL STAY. PFS DISCHARGE CARE: Vaccine Status Assessment Current influenza vaccination?: N Want influenza Vaccination?= PT DECLINES VACCINATION Current pneumonia vaccination?: Y Date of Pneumococcal Vaccination: UP TO DATE Have you Had COVID Vaccine N Plan of Care Discharge Date 12/06/20 Disposition HOME/SELF CARE Prescriptions See Medications Section Care Plan and Goals See Discharge Instructions s ection Functional Status Query Response Date Recorded LOC= ALERT AND ORIENTED December 06, 2020 1: 58pm Allergies, Adverse Reactions, Alerts Allergen Type Severity Reaction Status Last Updated No Known Drug Intolerances Allergy Unknown Active 12/03/20 Immunizations No Known History of Immunizations. Vital Signs Vital Reading Collection Date/Time Result Blood Pressure 12/06/20 8:00am 145/90 Blood Pressure Source 12/06/20 8:00am SITTING Temperature 12/06/20 8:00am 98 F Temperature Source 12/06/20 8:00am ORAL Respiratory Rate 12/05/20 11:17pm 18 Pulse Rate 12/06/20 8:00am 99 Pulse Location 12/06/20 8:00am BRACHIAL Bedside Pulse Oximetry 12/06/20 8:00am 98 Height 12/03/20 1:34pm 5 ft 5 in Height 12/03/20 1:34pm 165.1 cm Weight 12/03/20 1:34pm 208 lb Weight 12/03/20 1:34pm 94.34 kg Body Mass Index 12/03/20 1:34pm 34.6 kg/m2 Results Laboratory Results Test Name Result Units Flags Reference Collection Date/Time Result Date/Time Comments Glucometer 209 mg/dl H 70-100 12/06/20 11:21am 12/06/20 11: 32am Glucose Level 130 mg/dL H 74-106 12/05/20 5:55am 12/05/20 6 :45am Blood Urea Nitrogen 15 mg/dL 7-18 12/05/20 5:55am 09/0 07/22 6:45am Creatinine 1.07 mg/dL 0.55-1.30 12/05/20 5:55am 12/05/20 6: 45am It has been demonstrated with our laboratory's methodology for CREATININE testing that patients on N-Acetylcysteine and/or Metamizole (Dipyrone) therapy will show falsely depressed values. Estimat Glomerular Filtration Rate 67 mL/min >60 12/05/20 5:55am 12/05/20 6:45am Sodium Level 141 mmol/L 136-145 12/05/20 5:55am 12/05/20 6: 45am Potassium Level 3.6 mmol/L 3.5-5.1 12/05/20 5:55am 12/05/20 6:45am Chloride Level 107 mmol/L 96-109 12/05/20 5:55am 12/05/20 6:45am Carbon Dioxide Level 26 mmol/L -12/05/20 5:55am 07/22 6:45am Anion Gap 8 mmol/L 3-11 12/05/20 5:55am 12/05/20 6:45a m Calcium Level 9.6 mg/dL 8.1-9.7 12/05/20 5:55am 12/05/20 6 :45am Hemoglobin A1c 7.6 H 4.2-6.3 12/04/20 5:33am 12/04/20 6:55am Phosphorus Level 2.6 mg/dL 2.5-4.9 12/04/20 5:33am 1 6:50am Magnesium Level 1.8 mg/dL 1.8-2.4 12/04/20 5:33am 12/04/20 6:50am Troponin I Ultra-Sensitive 0.289 ng/mL 12/03/20 4:30 am 12/03/20 5:36am CARDIAC TROPONIN I REFERENCE RANGES < 0.015 - 0.045 = Negative 0.046 - 0.300 = Indeterminate 0.301 or greater = Positive Other conditions which can lead to myocardial injury, such as cardiac contusion and myocarditis, have the potential to cause elevations in the circulating concentrations of proteins found in the myocardium, including cardiac troponin I. HIGHER THAN RECOMMENDED DAILY ALLOWANCES OF BIOTIN (VITAMIN B7) MAY CAUSE FALSELY DEPRESSED LEVELS IN OUR TROPONIN ASSAY 03/08/2017 Ammonia 31.0 umol/L 12/03/20 4:30am 12/03/20 5:19am B-Type Natriuretic Peptide 526 pg/ml H 0-450 12/03/20 4:30 am 12/03/20 5:14am Carboxyhemoglobin 2.9 % THgb 12/03/20 3:45am 3:56am Therapeutic levels of Hydroxocobalamin may interfer with carboxyhemoglobin results, causing lower than expected values. Carboxyhemoglobin Reference Ranges: Nonsmokers: <2% Smokers: (1-2 packs/day) 4-5% Smokers: (>2 packs/day) 8-9% Urine Color Yellow 12/03/20 0:50am 12/03/20 1:0 4am Urine Appearance Hazy 12/03/20 0:50am 1 1:04am Urine pH 6.0 6.0-8.5 12/03/20 0:50am 12/03/20 1:04am Urine Specific Barker 1.025 1.000-1.030 12/03/20 0:50 am 12/03/20 1:04am Urine Glucose (UA) Negative mg/dl Negative 12/03/20 0:50am 05/24 1:04am Urine Bilirubin Negative mg/dl Negative 12/03/20 0:50am 1:04am Urine Ketones Negative mg/dl Negative 12/03/20 0:50am 12/03/20 1:04am Urine Blood Negative /ul Negative 12/03/20 0:50am 12/03/20 1 :04am Urine Protein Negative mg/dl Negative 12/03/20 0:50am 12/03/20 1:04am Urine Urobilinogen 0.2 mg/dl 0.0-0.2 12/03/20 0:50am 12/03 1:04am Urine Nitrite Negative Negative 12/03/20 0:50am 12/03/20 1:04am Urine Leukocyte Esterase Negative /ul Negative 12/03 0:50am 12/03/20 1:04am Urine Amphetamine Screen Negative Negative 12/03/20 0:50 am 12/03/20 1:53am Urine Marijuana (THC) Screen Negative Negative 0 12/03/20 0:50am 12/03/20 1:53am Urine Cocaine Screen Negative Negative 12/03/20 0:50am 0 12/03/20 1:53am Urine Opiates Screen Positive H Negative 12/03/20 0:50am 0 12/03/20 1:53am Urine Phencyclidine Screen Negative Negative 05/24 0:50am 12/03/20 1:53am Urine Barbiturates, Qualitative Negative Negative 12/03/20 0:50am 12/03/20 1:53am Urine Benzodiazepines Screen Negative Negative 0 12/03/20 0:50am 12/03/20 1:53am Urine Methadone Screen Negative Negative 12/03/20 0:50am 12/03/20 1:53am The following threshold concentrations have been established: Amphetamines/Methamphetamine 1000 ng/mL THC (51-wwp-hjleb1-CBF-0-Toidhakgsn Acid) 50 ng/mL Cocaine (Benzoylecgonine) 300 ng/mL Opiates (Morphine) 300 ng/mL Phencyclidine 25 ng/mL Barbiturates 200 ng/mL Benzodiazepines 200 ng/mL Methadone 300 ng/mL These tests provides only screening test results. A more specific alternate chemical method must be used in order to obtain a confirmed analytical result. Clinical consideration and professional judgment should be applied to any drug of abuse test result, particularly when positive results are obtained. Confirmatory tests will be done only at the physicians request. Positive specimens will be saved 72 hours. White Blood Count 9.12 x10E3/ul 3.80-10.80 12/02/20 8:35pm 9:10pm Red Blood Count 4.50 x10E6/ul L 4.69-6.13 12/02/20 8:35pm 12/02 9:10pm Hemoglobin 14.4 g/dl 14.1-18.1 12/02/20 8:35pm 12/02/20 9: 10pm Hematocrit 43.4 % L 43.5-53.7 12/02/20 8:35pm 12/02/20 9: 10pm Mean Corpuscular Volume 96 fl 80-97 12/02/20 8:35pm 12/02/20 9:10pm Mean Corpuscular Hemoglobin 32.0 pg H 27.0-31.2 8:35pm 12/02/20 9:10pm Bedside Mean Corpuscular Hgb Conc 33.2 g/dl 31.8-3 5.4 12/02/20 8:35pm 12/02/20 9:10pm Red Cell Distribution Width 12.7 % 9.0-16.0 12/02/20 8: 35pm 12/02/20 9:10pm Platelet Count 176 x10E3/ul 150-400 12/02/20 8:35pm 12/02/20 9:10pm Mean Platelet Volume 10.9 fl 7.2-11.1 12/02/20 8:35pm 9:10pm Neutrophils % 82.8 % H 37.0-74.9 12/02/20 8:35pm 12/02/20 9:10pm Lymphocytes % 7.3 % L 10.0-50.0 12/02/20 8:35pm 12/02/20 9:10pm Monocytes % 7.0 % 0.0-12.0 12/02/20 8:35pm 12/02/20 9: 10pm Eosinophils % 1.5 % 0.0-7.0 12/02/20 8:35pm 12/02/20 9 :10pm Basophils % 0.5 % 0.0-2.5 12/02/20 8:35pm 12/02/20 9:1 0pm Immature Granulocytes % 0.9 % 0-2 12/02/20 8:35pm 12/02/20 9:10pm Nucleated Red Blood Cells % 0 % 0-0 12/02/20 8:3 5pm 12/02/20 9:10pm Neutrophils # 7.5 X10E3/ul H 2.0-6.9 12/02/20 8:35pm 12/02/20 9:10pm Lymphocytes # 0.7 X10E3/ul 0.6-3.4 12/02/20 8:35pm 12/02/20 9:10pm Monocytes # 0.6 X10E3/ul 0.0-0.9 12/02/20 8:35pm 12/02/20 9: 10pm Eosinophils # 0.1 X10E3/ul 0.0-0.7 12/02/20 8:35pm 12/02/20 9:10pm Basophils # 0.1 X10E3/ul 0.0-0.2 12/02/20 8:35pm 12/02/20 9: 10pm Immature Granulocytes % 0.1 X10E3/ul 0.0-0.5 12/02/20 8:35pm 12/02/20 9:10pm Nucleated Red Blood Cells # 0.0 X10E3/ul 0.0-0.5 8:35pm 12/02/20 9:10pm Prothrombin Time 12.6 Seconds H 9.4-12.5 12/02/20 8:35pm 09/01/ 21 9:33pm INR International Normalized Ratio 1.15 12/02 8:35pm 12/02/20 9:33pm The use of the INR is restricted to patients on stable oral anticoagulant. Therapeutic Range: 2.0-3.0 High Risk Values: 2.5-3.5 Activated Partial Thromboplast Time 27.3 Seconds 25.1 -36.5 12/02/20 8:35pm 12/02/20 9:33pm The above reference range for aPTT is ba sed on patients that are NOT on Heparin Therapy. Blood Gas pH 7.301 L 7.320-7.430 12/02/20 8:35pm 1 9:03pm Blood Gas PCO2 52.3 mmHg H 40.0-45.0 12/02/20 8:35pm 1 9:03pm Blood Gas PO2 23.3 mmHg L 30.0-50.0 12/02/20 8:35pm 12/02/20 9:03pm Blood Gas Oxygen Saturation 40.4 % >75 12/02/20 8:3 5pm 12/02/20 9:03pm Blood Gas HCO3 25.2 mmol/L 21.0-28.0 12/02/20 8:35pm 1 9:03pm Blood Gas Total CO2 26.8 mmol/L H 22.0-26.0 12/02/20 8:35pm 9:03pm Blood Gas Base Excess -2.0 mmol/L -3.0-3.0 12/02/20 8:35pm 0 12/02/20 9:03pm Albumin 3.7 gm/dL 3.4-5.0 12/02/20 8:30pm 12/02/20 9:49pm Total Protein 7.2 g/dL 6.4-8.2 12/02/20 8:30pm 12/02/20 9 :49pm Total Bilirubin 0.7 mg/dL 0.2-1.0 12/02/20 8:30pm 12/02/20 9:49pm It has been demonstrated use of our TOTAL BILIRUBIN assay is not recommended for patients undergoing treatment with ELTROMBOPAG due to the potential for falsely elevated results. Aspartate Amino Transf (AST/SGOT) 64 U/L H 15-37 12/02/20 8:30pm 12/02/20 9:49pm Alanine Aminotransferase (ALT/SGPT) 29 U/L 12-7 8 12/02/20 8:30pm 12/02/20 9:49pm Alkaline Phosphatase 64 U/L 45-117 12/02/20 8:30pm 04/23 9:49pm Lactic Acid Level 1.8 mmol/L 0.4-2.0 12/02/20 8:30pm 9:29pm Thyroxine (T4) 9.5 ug/dL 4.7-13.3 12/02/20 8:30pm 12/02/20 9:49pm Thyroid Stimulating Hormone (TSH) 2.94 uIU/mL 0.36-3 .74 12/02/20 8:30pm 12/02/20 9:49pm Acetaminophen Level < 2.0 ug/mL 12/02/20 8:30pm 05/24 2:50am Therapeutic Range: Therapeutic acetaminophen concentrations vary significantly depending on the individual patient. A range of 10.0 - 30.0 ug/mL may be an effective sample concentration for many patients; however, some individuals are best treated at concentrations outside this range. The physician must determine the appropriate therapeutic range for each patient. Acetaminophen concentrations of >150.0 ug/mL at four hours after injestion and 50.0 ug/mL at twelve hours after injestion are often associated with toxic reactions. Ethyl Alcohol Level < 10 mg/dl 0-10.0 12/02/20 8:30pm 04/23 9:49pm <10 mg/ml = None detected. >200mg/dl may be toxic. Adenovirus (PCR) Not Detected Not Detect 12/02/20 8:20pm 12/02/20 11:34pm Coronavirus Type 229E (PCR) Not Detected Not Detec t 12/02/20 8:20pm 12/02/20 11:34pm Coronavirus Type HKU1 (PCR) Not Detected Not Detec t 12/02/20 8:20pm 12/02/20 11:34pm Coronavirus Type NL63 (PCR) Not Detected Not Detec t 12/02/20 8:20pm 12/02/20 11:34pm Coronavirus Type OC43 (PCR) Not Detected Not Detec t 12/02/20 8:20pm 12/02/20 11:34pm SARS-CoV-2 (PCR) Not Detected Not Detect 12/02/20 8:20pm 12/02/20 11:34pm Human Metapneumovirus (PCR) Not Detected Not Detec t 12/02/20 8:20pm 12/02/20 11:34pm Enterovirus/Rhinovirus (PCR) Not Detected Not Dete ct 12/02/20 8:20pm 12/02/20 11:34pm Influenza Virus Type A (PCR) Not Detected Not Dete ct 12/02/20 8:20pm 12/02/20 11:34pm Influenza Virus Type B (PCR) Not Detected Not Dete ct 12/02/20 8:20pm 12/02/20 11:34pm Parainfluenza Type 1 (PCR) Not Detected Not Detec 12/02/20 8:20pm 12/02/20 11:34pm Parainfluenza Type 2 (PCR) Not Detected Not Detect 12/02/20 8:20pm 12/02/20 11:34pm Parainfluenza Type 3 (PCR) Not Detected Not Detect 12/02/20 8:20pm 12/02/20 11:34pm Parainfluenza Type 4 (PCR) Not Detected Not Detect 12/02/20 8:20pm 12/02/20 11:34pm Respiratory Syncytial Virus (PCR) Not Detected Not Detect 12/02/20 8:20pm 12/02/20 11:34pm Bordetella parapertussis DNA (PCR) Not Detected No t Detect 12/02/20 8:20pm 12/02/20 11:34pm Bordetella pertussis DNA (PCR) Not Detected Not De tect 12/02/20 8:20pm 12/02/20 11:34pm Chlamydia pneumoniae DNA (PCR) Not Detected Not De tect 12/02/20 8:20pm 12/02/20 11:34pm Mycoplasma pneumoniae (PCR) Not Detected Not Detec t 12/02/20 8:20pm 12/02/20 11:34pm Reference Rang e: Not Detected Negative results do not preclude SARS-CoV-2 infection and should not be used as the sole basis for treatment or other patient management decisions. Negative results must be combined with clinical observations, patient history, and epidemiological information. A negative BioFire RP2.1 result does not exclude the possibility of viral or bacterial infection. Negative test results may occur due to the presence of sequence variants (or mutation) in the region targeted by the assay, the presence of inhibitors, an infection caused by an organism not detected by the panel, or lower respiratory tract infection that is not detected by a nasopharyngeal swab specimen. The performance of this device has not been assessed in a population vaccinated against COVID-19. Recent administration of nasal vaccines (e.g. FluMist) prior to collection could lead to accurate virus detection by the BioFire RP2.1 of the viruses contained in the vaccine, but would not represent infection by those agents. Testing was performed using the BioFire real-time nested multiplexed PCR Respiratory Panel 2.1. Microbiology Results Procedure Source Result Collection Date/Time Result Date/Time Blood Culture Blood, Venous No growth. 12/02/20 11:20pm 12/04/20 11:27pm Procedures No Known History of Procedures. Encounters Encounter Location Arrival/Admit Date Discharge/Depart Date Attending Provider Discharged Inpatient [facility] 12/02/20 8:21pm 12/06/20 1:20 pm Cecy Johnson M.D. Encounter Diagnosis Onset Date Altered mental status Hypertensive urgency Systolic heart failure VINAYAK (acute kidney injury) DM (diabetes mellitus) Physical deconditioning CAD (coronary artery disease) Hypothyroidism GERD (gastroesophageal reflux disease) Osteoarthritis
--- OUTSIDE RECORDS SUMMARY | 2021-02-11 12:00 | CCD ---
Author Author [facility] Organization [facility] Address Unknown Phone Unavailable Care Team Providers Care Cleaner Housekeeping Name Role Phone Devonte Strauss Unavailable PROBLEMS Type Condition ICD9-CM Code [id number] Code Onset Dates Condition S tatus W/U Status Risk SNOMED Code Notes Problem Hx of coronary artery bypass graft Z95.1 Activ e confirmed 211762248 Problem Lumbar back pain with radiculopathy affecting le ft lower extremity M54.17 Active confirmed 250773146 Problem Sleep apnea in adult G47.33 Active confirmed 94617278 Problem Hypertension I10 Active confirmed 3189783 3 Problem GERD (gastroesophageal reflux disease) K21.9 A ctive confirmed 888494892 Problem Hypothyroid E03.9 Active confirmed 02145183 Problem Memory impairment R41.3 Active confirmed 38 4519244 Problem Hypertensive renal disease, stage 1 through stage 4 or unspecified chronic kidney disease I12.9 Active confirmed 1998442 6 Problem Type 2 diabetes mellitus wit hout complication, without long-term current use of insulin E11.9 Active confirmed 630808061 Problem Hyperlipemia E78.5 Active confirmed 8188610 4 Problem Hx of colonic polyp Z86.010 Active confirmed 192023566 Problem Chronic kidney disease (CKD) stage G3a/A1, moderately decreased glomerular filtration rate (GFR) between 45-59 mL/min/1.73 square meter and albuminuria creatinine ratio less than 30 mg/g N18.3 Act nay confirmed 031281471 Problem Tobacco use disorder F17.200 Active confirmed 269084707 Problem Hypertensive kidney disease I12.9 Active confirmed 29022167 Problem Rotator cuff arthropathy of right shoulder M12.811 Active confirmed 70207680296146345 Problem Primary osteoarthritis of right shoulder M19.011 Active confirmed [id number] ALLERGIES No Known Allergies ENCOUNTERS from 1945 to 2020-12-09 Encounter Location Date Provider Diagnosis [facility] Aric GAY [phone] ELISA [place] [id number] Dec, 2020 Devonte Strauss IMMUNIZATIONS Vaccine Route [...] Notes Start Da te End Date Status Topiramate 50 50mg 2 tabs orally once daily for 90 day(s) Sep, Active Toprol XL 50 MG 1 tablet Orally Once a day for 90 days Active Nitroglycerin 0.4 MG one as directed for chest pa in Sublingual as directed for 30 day(s) Active Klor-Con 10 10 MEQ 1 tablet Orally once daily for 90 Active Aspirin 81 MG 1 tablet Orally Once a day Active Tylenol PM Extra Strength 500-25 MG 1 tablet at bedtim e as needed Orally Once a day Active Pantoprazole Sodium 40 MG TAKE ONE TABLET BY MOUTH EVERY DAY for 90 Active Lisinopril-hydroCHLOROthiazide 20-12.5 MG 1 tablet Ora lly Once a day for 90 days Active Lyrica 50 MG 1 capsule Orally bid for 30 days Active Vitamin D 25 MCG (1000 UT) 1 tablet Orally Once a day for 30 day(s) Active Lovastatin 40 MG 1 tablet with the evening meal Orally Once a da y for 90 days Active Fish Oil 1000 MG 1 capsule Orally Once a day for 30 day(s) Active Acetaminophen-Codeine 300-60 MG 2 tablet as needed Ora lly every 8 hrs MDD#6 for 30 Days Dec, Active metFORMIN HCl ER 500 MG 1 tablet with evening meal O rally Once a day for 90 day(s) Nov, Active Triamcinolone Acetonide 0.1 % 1 application to affecte d area- upper and lower extremity rash Externally Twice a day for 30 days Active Lasix 20 MG 1 tablet Orally Once a day for 90 days Active Acetaminophen-Codeine 300-60 MG 2 tablet as needed Ora lly every 8 hrs MDD#6 for 30 days Dec, Active Hydrocortisone Butyrate 0.1 % 1 application to scalp E xternally Twice a day for 30 Days Nov, Active Plavix 75 MG 1 tablet Orally Once a day for 90 days Active Levothyroxine Sodium 88 MCG 1 tablet in the morning on an empty stomach Orally Once a day for 90 day(s) Active Nasonex 50 MCG/ACT 2 sprays in each nostril Nasally Once a day for 90 days Active Fenofibrate Micronized 200 MG 1 capsule with a meal Orally Once a day for 90 Active Carafate 1 GM 1 tablet on an empty stomach Orally four times a day for 90 day(s) Active Cyclobenzaprine HCl 10 MG TAKE ONE TABLET BY MOUTH TWICE A D AY NEEDED for 90 Active Topiramate 50 MG TAKE TWO TABLETS BY MOUTH EVERY DAY for 90 Active PROCEDURES No Information RESULTS No Results REASON FOR VISIT T4 MEDICAL (GENERAL) HISTORY Type Description Date Medical [...] Information ASSESSMENTS No Information PLAN OF TREATMENT Medication Medication Name Sig Start Date Stop Date metFORMIN HCl ER 500 MG 1 tablet with evening meal O rally Once a day for 90 day(s) Nov, Hydrocortisone Butyrate 0.1 % 1 application to scalp E xternally Twice a day for 30 Days Nov, Plavix 75 MG 1 tablet Orally Once a day for 90 days Levothyroxine Sodium 88 MCG 1 tablet in the morning on an empty stomach Orally Once a day for 90 day(s) Pantoprazole Sodium 40 MG TAKE ONE TABLET BY MOUTH EVERY DAY for 90 Toprol XL 50 MG 1 tablet Orally Once a day for 90 days Lasix 20 MG 1 tablet Orally Once a day for 90 days Lisinopril-hydroCHLOROthiazide 20-12.5 MG 1 tablet Ora lly Once a day for 90 days Acetaminophen-Codeine 300-60 MG 2 tablet as needed Ora lly every 8 hrs MDD#6 for 30 days Dec, Acetaminophen-Codeine 300-60 MG 2 tablet as needed Ora lly every 8 hrs MDD#6 for 30 Days Dec, Next Appt Details Provider Name:Devonte Strauss, 01:00:00 PM, [address] G[address], , [place], [address], Provider Name:Devonte Strauss, 01:30:00 PM, Lobo[address] GAY, , [place], [address], Insurance Providers Payer Name Payer Address Payer Phone Insured Name Patient Relati onship to Insured Coverage Start Date Coverage End Date [facility] [address] [facility] [id number] DOROTHY BLAKE MEDICARE Part A and B [address] [facility] [place] [address] DOROTHY BLAKE self
--- OUTSIDE RECORDS SUMMARY | 2021-02-11 12:00 | CCD ---
Author Author [facility] Organization [facility] Address Unknown Phone Unavailable Care Team Providers Care Plaster Machine Tender Name Role Phone Devonte Strauss Unavailable PROBLEMS Type Condition ICD9-CM Code SST85-SR Code Onset Dates Condition S tatus W/U Status Risk SNOMED Code Notes Problem Hx of coronary artery bypass graft Z95.1 Activ e confirmed [id number] Problem Lumbar back pain with radiculopathy affecting le ft lower extremity M54.17 Active confirmed 690477888 Problem Sleep apnea in adult G47.33 Active confirmed 25959904 Problem Hypertension I10 Active confirmed 9502712 3 Problem GERD (gastroesophageal reflux disease) K21.9 A ctive confirmed 660158799 Problem Hypothyroid E03.9 Active confirmed 77780524 Problem Memory impairment R41.3 Active confirmed 38 0780152 Problem Hypertensive renal disease, stage 1 through stage 4 or unspecified chronic kidney disease I12.9 Active confirmed 3561530 6 Problem Type 2 diabetes mellitus wit hout complication, without long-term current use of insulin E11.9 Active confirmed 141509536 Problem Hyperlipemia E78.5 Active confirmed 2009333 4 Problem Hx of colonic polyp Z86.010 Active confirmed 703705568 Problem Chronic kidney disease (CKD) stage G3a/A1, moderately decreased glomerular filtration rate (GFR) between 45-59 mL/min/1.73 square meter and albuminuria creatinine ratio less than 30 mg/g N18.3 Act nay confirmed 531701569 Problem Tobacco use disorder F17.200 Active confirmed 011272900 Problem Hypertensive kidney disease I12.9 Active confirmed 57576424 Problem Rotator cuff arthropathy of right shoulder M12.811 Active confirmed 33123417254202631 Problem Primary osteoarthritis of right shoulder M19.011 Active confirmed [id number] ALLERGIES No Known Allergies ENCOUNTERS from 1945 to 2021-01-05 Encounter Location Date Provider Diagnosis [facility] Aric HUERTAS [phone] ELISA [place] [id number] 04 Jan, 2021 Devonte Strauss Hypertensive renal disease, stage 1 thro ugh stage 4 or unspecified chronic kidney disease I12.9 ; Stage 3b chronic kidney disease N18.32 ; Memory impairment R41.3 ; Type 2 diabetes mellitus without comp lication, without long-term current use of insulin E11.9 ; Hypothyroid E03.9 ; Hyperlipemia E78.5 ; Hx of coronary artery bypass graft Z95.1 ; Lumbar back pain with radiculopathy affecting left lower extremity M54.17 ; Ventral hernia without obstruction or gangrene K43.9 ; Tobacco use disorder F17.200 ; GERD (gastroesophageal reflux disease) K21.9 ; Hx of colonic polyp Z86.010 ; Hx of gastric ulcer Z87.11 and Right hip pain M25.551 IMMUNIZATIONS Vaccine Route Administration Date Status Influenza [...] ((1 -9 cigs/day) Smoking Cessation Information Given 01/04/2021 Patient counseled on the dangers of tobacco use and urged to quit: 01/04/2021 How many cigarettes a day do you smoke? 6-10 Are you interested in quitting? Not ready to quit Counseled the patient on smoking effects, education provided 01/04/2021 REASON FOR REFERRAL No Information VITAL SIGNS Weight 209.4 lbs Jan, Weight-kg 94.98 kg Jan, Height 64 in Jan, BMI 35.94 kg/m2 Jan, Heart Rate 83 /min Jan, Respiratory Rate 18 /min Jan, Temperature 97.1 degrees Fahrenheit Jan, Oximetry 99ra Jan, Blood pressure systolic 136 mm Hg Jan, Blood pressure diastolic 89 mm Hg Jan, MEDICATIONS Medication SIG (Take, Route, Frequency, Duration) Notes Start Da te End Date Status Topiramate 50 50mg 2 tabs orally once daily for 90 day(s) Sep, Active Cyclobenzaprine HCl 10 MG TAKE ONE TABLET BY MOUTH TWICE A D AY NEEDED for 90 Active Plavix 75 MG 1 tablet Orally Once a day for 90 days Active Tylenol PM Extra Strength 500-25 MG 1 tablet at bedtim e as needed Orally Once a day Active Lisinopril-hydroCHLOROthiazide 20-12.5 MG 1 tablet Ora lly Once a day for 90 days Active Fenofibrate Micronized 200 MG 1 capsule with a meal Orally Once a day for 90 Active Klor-Con 10 10 MEQ 1 tablet Orally once daily for 90 Active traMADol HCl 50 MG 1 tablet as needed Orally four times aidee ly MDD#4 for 30 Days Jan, Active Pantoprazole Sodium 40 MG TAKE ONE TABLET BY MOUTH EVERY DAY for 90 Active Lovastatin 40 MG 1 tablet with the evening meal Orally Once a da y for 90 days Active Lisinopril 20 MG 1 tablet Orally Once a day for 30 day(s) Active Nitroglycerin 0.4 MG one as directed for chest pa in Sublingual as directed for 30 day(s) Active Topiramate 50 MG TAKE TWO TABLETS BY MOUTH EVERY DAY for 90 Active metFORMIN HCl ER 500 MG 1 tablet with evening meal O rally Once a day for 90 day(s) Nov, Active Carafate 1 GM 1 tablet on an empty stomach Orally four times a day for 90 day(s) Active Pantoprazole Sodium 40 MG 1 tablet Orally Once a day for 90 days Active Lyrica 50 MG 1 capsule Orally bid for 30 days Active Vitamin D 50 MCG (1999 UT) 1 tablet Orally Once a day for 30 day(s) Active Levothyroxine Sodium 75 MCG 1 tablet in the morning on an empty stomach Orally Once a day for 90 days Active Toprol XL 50 MG 1 tablet Orally Once a day for 90 days Active Aspirin 81 MG 1 tablet Orally Once a day Active Lasix 20 MG 1 tablet Orally Once a day for 90 days Active Metoprolol Succinate ER 50 MG TAKE ONE TABLET BY MOUTH EVERY DAY for 90 Active PROCEDURES No Information RESULTS No Results REASON FOR VISIT Patient here for hospital f/u, he was found to be confused in [facility] on 11/04. Patient was treated for dehydration and exhaustion. Patient apparently was living in a garage- but now is living with daughter who is helping take care of him. , Daughter accompanies him today MEDICAL (GENERAL) HISTORY Type Description Date Medical History Hyperlipidemia Medical History GERD Medical History CAD Medical History HTN Medical History ELISABET---Cannot use CPAP Medical History CKD--Stage III Medical History Hypothyroid Medical History Chornic back/left leg pain Surgical History CABG X2 Surgical History Gallbladder removal Surgical History Left carpal tunnel release Surgical History Nose, plastic surgery as child Surgical History EGD 2015 Surgical History Colonoscopy- Dr Arevalo- recommended 2 year f/u 11/2018 Surgical History EGD- Dr Arevalo- non bleeding gastric ulcer 11/2018 Surgical History Right shoulder replacement- Dr. Leal 12/2018 Hospitalization History Dehydration/confusion- [facility] 12/2020 Goals Section No Information Health Concerns No Information MEDICAL EQUIPMENT No Information MENTAL STATUS No Information FUNCTIONAL STATUS No Information ASSESSMENTS Encounter Date Diagnosis Assessment Notes Treatment Notes Treatm ent Clinical Notes Jan, Hypertensive renal disease, stage 1 through stage 4 or unspecified chronic kidney disease (ICD-10 - I12.9) BP well controlled. Will recheck as scheduled. Pt is agreeable. Jan, Stage 3b chronic kidney disease (ICD-10 - N18.32 ) Stable, due for labs next visit. Jan, Memory impairment (ICD-10 - R41.3) Discussed he may have early dementia but his exam is really amazingly normal today. Will trial a change of pain meds to see if might be possible contributing cause. Pt and daughter agreeable. Jan, Type 2 diabetes mellitus wit hout complication, without long-term current use of insulin (ICD-10 - E11.9) Will repeat labs next visit. In 7s during recent hospital visit. Pt agreeable. Jan, Hypothyroid (ICD-10 - E03.9) Generally stable. Jan, Hyperlipemia (ICD-10 - E78.5) Stable. Jan, Hx of coronary artery bypass graft (ICD-10 - Z95 .1) Cont with Dr Lo. Jan, Lumbar back pain with radicu lopathy affecting left lower extremity (ICD-10 - M54.17) Will try diff pain meds to see if affecting memory. Jan, Ventral hernia without obstruction or gangrene ( ICD-10 - K43.9) Currently asymptomatic, he declines referral for surgeon at this time. Jan, Tobacco use disorder (ICD-10 - F17.200) Cessation strongly encouraged. Jan, GERD (gastroesophageal reflux disease) (ICD-10 - K21.9) Currently stable. Jan, Hx of colonic polyp (ICD-10 - Z86.010) Will refer back to Dr Arevalo at [facility]. Jan, Hx of gastric ulcer (ICD-10 - Z87.11) Jan, Right hip pain (ICD-10 - M25.551) Probably OA, did have early changes in 2017. Will update imaging. PLAN OF TREATMENT Medication Medication Name Sig Start Date Stop Date Lisinopril-hydroCHLOROthiazide 20-12.5 MG 1 tablet Ora lly Once a day for 90 days Lasix 20 MG 1 tablet Orally Once a day for 90 days Levothyroxine Sodium 75 MCG 1 tablet in the morning on an empty stomach Orally Once a day for 90 days traMADol HCl 50 MG 1 tablet as needed Orally four times aidee ly MDD#4 for 30 Days Jan, Toprol XL 50 MG 1 tablet Orally Once a day for 90 days Pantoprazole Sodium 40 MG 1 tablet Orally Once a day for 90 days Plavix 75 MG 1 tablet Orally Once a day for 90 days Treatment Notes Assessment Notes Clinical Notes Hypertensive renal disease, stage 1 thro ugh stage 4 or unspecified chronic kidney disease BP well controlled. Will re check as scheduled. Pt is agreeable. Right hip pain Probably OA, did hav e early changes in 2017. Will update imaging. Stage 3b chronic kidney disease Stable, due for labs next visit. Memory impairment Discussed he may hav e early dementia but his exam is really amazingly normal today. Will trial a change of pain meds to see if might be possible contributing cause. Pt and daughter agreeable. Type 2 diabetes mellitus without complic ation, without long-term current use of insulin Will repeat labs next visit. In 7s during recent hospital visit. Pt agreeable. Hypothyroid Generally stable. Hyperlipemia Stable. Hx of coronary artery bypass graft Cont with Dr Lo. Hx of colonic polyp Will refer back to Robbie Arevalo at [facility]. GERD (gastroesophageal reflux disease) C urrently stable. Lumbar back pain with radiculopathy affecting left lower ext remity Will try diff pain meds to see if affecting memory. Ventral hernia without obstruction or gangrene Currently asymptomatic, he declines referral for surgeon at this time. Tobacco use disorder Cessation strongly encouraged. Treatment Notes Test Name Order Date SHIMON HIP COMPLETE (AP/LAT) 2021-01-04 Next Appt Details as scheduled Reason: Provider Name:Devonte Strauss, 01:30:00 PM, [address] , , [place], [address], Insurance Providers Payer Name Payer Address Payer Phone Insured Name Patient Relati onship to Insured Coverage Start Date Coverage End Date MEDICARE Part A and B [address] [facility] [phone] DOROTHY BLAKE [facility] [address] [facility] [id number] [phone] DOROTHY BLAKE
--- OUTSIDE RECORDS SUMMARY | 2021-02-11 12:00 | CCD ---
Author Author [employer] [facility] Organization [facility] [employer] [facility] Address Unknown Phone Unavailable Care Team Providers Care Lead Atg Developer Name Role Phone Devonte Strauss Unavailable PROBLEMS Type Condition ICD9-CM Code LEI14-NS Code Onset Dates Condition S tatus W/U Status Risk SNOMED Code Notes Problem Hx of coronary artery bypass graft Z95.1 Activ e confirmed 813760757 Problem Lumbar back pain with radiculopathy affecting le ft lower extremity M54.17 Active confirmed 329922363 Problem Sleep apnea in adult G47.33 Active confirmed 18926957 Problem Hypertension I10 Active confirmed 0529800 3 Problem GERD (gastroesophageal reflux disease) K21.9 A ctive confirmed 000574054 Problem Hypothyroid E03.9 Active confirmed 77707780 Problem Memory impairment R41.3 Active confirmed 38 5056848 Problem Hypertensive renal disease, stage 1 through stage 4 or unspecified chronic kidney disease I12.9 Active confirmed 4683801 6 Problem Type 2 diabetes mellitus wit hout complication, without long-term current use of insulin E11.9 Active confirmed 803705637 Problem Hyperlipemia E78.5 Active confirmed 7700002 4 Problem Hx of colonic polyp Z86.010 Active confirmed 960429105 Problem Chronic kidney disease (CKD) stage G3a/A1, moderately decreased glomerular filtration rate (GFR) between 45-59 mL/min/1.73 square meter and albuminuria creatinine ratio less than 30 mg/g N18.3 Act nay confirmed 661201622 Problem Tobacco use disorder F17.200 Active confirmed 475005542 Problem Hypertensive kidney disease I12.9 Active confirmed 68096691 Problem Rotator cuff arthropathy of right shoulder M12.811 Active confirmed 91091557885627123 Problem Primary osteoarthritis of right shoulder M19.011 Active confirmed [id number] ALLERGIES No Known Allergies ENCOUNTERS from 1945 to 2020-11-13 Encounter Location Date Provider Diagnosis [facility] Aric GAY [phone] [place] [address] Nov, Devonte Strauss Hypertensive renal disease, stage 1 thro ugh stage 4 or unspecified chronic kidney disease I12.9 ; Stage 3b chronic kidney disease N18.32 ; Type 2 diabetes mellitus without complication, without long-term current use of insulin [...] ; Hx of gastric ulcer Z87.11 and Scaly patch rash R21 IMMUNIZATIONS Vaccine Route Administration Date Status Influenza [...] effects, education provided 11/12/2020 REASON FOR REFERRAL from 1945 to 2020-11-13 Reason Pt is due for repeat scoping Diagnosis 1 Hx of colonic polyp (Z86.010 ) Diagnosis 2 Hx of gastric ulcer (Z87.11) Referral Organization [facility] Referring Provider First Name Devonte Referring Provider Last Name Rica Referring Provider Specialty Family Medicine Referred Provider Specialty Gastroenterology Referral Priority Routine General Notes Devonte Strauss DO 11/13/19 4:09:06 PM [facility]12[facility] 4:46:08 PM > PHONE [phone], FAX [phone] VITAL SIGNS Weight 211.4 lbs Nov, Weight-kg 95.89 kg Nov, Height 64 in Nov, BMI 36.28 kg/m2 Nov, Heart Rate 77 /min Nov, Respiratory Rate 20 /min Nov, Temperature 97.2 degrees Fahrenheit Nov, Oximetry 95RA Nov, Blood pressure systolic 121 mm Hg Nov, Blood pressure diastolic 80 mm Hg Nov, MEDICATIONS Medication SIG (Take, Route, Frequency, Duration) Notes Start Da te End Date Status Lisinopril-hydroCHLOROthiazide 20-12.5 MG 1 tablet Ora lly Once a day for 90 days Active Aspirin 81 MG 1 tablet Orally Once a day Active Toprol XL 50 MG 1 tablet Orally Once a day for 90 days Active Vitamin D 25 MCG (1000 UT) 1 tablet Orally Once a day for 30 day(s) Active Nitroglycerin 0.4 MG one as directed for chest pa in Sublingual as directed for 30 day(s) Active Lasix 20 MG 1 tablet Orally Once a day for 90 days Active Fenofibrate Micronized 200 MG 1 capsule with a meal Orally Once a day for 90 Active Levothyroxine Sodium 75 MCG 1 tablet in the morning on an empty stomach Orally Once a day for 90 days Active Pantoprazole Sodium 40 MG 1 tablet Orally Once a day for 90 days Active Triamcinolone Acetonide 0.1 % 1 application to affecte d area- upper and lower extremity rash Externally Twice a day for 30 days Active Cyclobenzaprine HCl 10 MG TAKE ONE TABLET BY MOUTH TWICE A D AY NEEDED for 90 Active Topiramate 50 50mg 2 tabs orally once daily for 90 day(s) Sep, Active Nasonex 50 MCG/ACT 2 sprays in each nostril Nasally Once a day for 90 days Active Fish Oil 1000 MG 1 capsule Orally Once a day for 30 day(s) Active Tylenol PM Extra Strength 500-25 MG 1 tablet at bedtim e as needed Orally Once a day Active Acetaminophen-Codeine 300-60 MG 2 tablet as needed Ora lly every 8 hrs MDD#6 for 30 days Nov, Active Plavix 75 MG 1 tablet Orally Once a day for 90 days Active Lovastatin 40 MG 1 tablet with the evening meal Orally Once a da y for 90 days Active Klor-Con 10 10 MEQ 1 tablet Orally once daily for 90 Active Lyrica 50 MG 1 capsule Orally bid for 30 days Active Topiramate 50 MG TAKE TWO TABLETS BY MOUTH EVERY DAY for 90 Active Carafate 1 GM 1 tablet on an empty stomach Orally four times a day for 90 day(s) Active Hydrocortisone Butyrate 0.1 % 1 application to scalp E xternally Twice a day for 30 Days Nov, Active PROCEDURES No Information RESULTS No Results REASON FOR VISIT missed last appt MEDICAL (GENERAL) HISTORY Type Description Date Medical [...] Notes Treatment Notes Treatm ent Clinical Notes Nov, Hypertensive renal disease, stage 1 through stage 4 or unspecified chronic kidney disease (ICD-10 - I12.9) BP well controlled. Will recheck in 3-4 months. Pt is agreeable. 12 Aug, 2021 Stage 3b chronic kidney disease (ICD-10 - N18.32 ) Stable, due for labs. Nov, Type 2 diabetes mellitus wit hout complication, without long-term current use of insulin (ICD-10 - E11.9) Due for labs- consider tx pending results. Pt agreeable. Nov, Hypothyroid (ICD-10 - E03.9) Due for labs- previously stable. Nov, Hyperlipemia (ICD-10 - E78.5) Stable. Nov, Hx of coronary artery bypass graft (ICD-10 - Z95 .1) Cont with Dr Lo. Nov, Lumbar back pain with radicu lopathy affecting left lower extremity (ICD-10 - M54.17) stable. Nov, Ventral hernia without obstruction or gangrene ( ICD-10 - K43.9) Currently asymptomatic, he declines referral for surgeon at this time. Nov, Tobacco use disorder (ICD-10 - F17.200) Cessation strongly encouraged. Nov, GERD (gastroesophageal reflux disease) (ICD-10 - K21.9) Currently stable. Nov, Hx of colonic polyp (ICD-10 - Z86.010) Will refer back to Dr Arevalo at [facility]. Nov, Hx of gastric ulcer (ICD-10 - Z87.11) Nov, Scaly patch rash (ICD-10 - R21) Will trial liquid steroid for possible psoriasis. PLAN OF TREATMENT Medication Medication Name Sig Start Date Stop Date Plavix 75 MG 1 tablet Orally Once a day for 90 days Pantoprazole Sodium 40 MG 1 tablet Orally Once a day for 90 days Lisinopril-hydroCHLOROthiazide 20-12.5 MG 1 tablet Ora lly Once a day for 90 days Hydrocortisone Butyrate 0.1 % 1 application to scalp E xternally Twice a day for 30 Days Nov, Levothyroxine Sodium 75 MCG 1 tablet in the morning on an empty stomach Orally Once a day for 90 days Lasix 20 MG 1 tablet Orally Once a day for 90 days Toprol XL 50 MG 1 tablet Orally Once a day for 90 days Treatment Notes Assessment Notes Clinical Notes Hypertensive renal disease, stage 1 thro ugh stage 4 or unspecified chronic kidney disease BP well controlled. Will re check in 3-4 months. Pt is agreeable. Stage 3b chronic kidney disease Stable, due for labs. Type 2 diabetes mellitus without complic ation, without long-term current use of insulin Due for labs- consider tx pe nding results. Pt agreeable. Hypothyroid Due for labs- previo usly stable. Hyperlipemia Stable. Hx of coronary artery bypass graft Cont with Dr Lo. Lumbar back pain with radiculopathy affecting left lower ext remity stable. Ventral hernia without obstruction or gangrene Currently asymptomatic, he declines referral for surgeon at this time. Tobacco use disorder Cessation strongly encouraged. GERD (gastroesophageal reflux disease) C urrently stable. Scaly patch rash Will trial liquid st eroid for possible psoriasis. Hx of colonic polyp Will refer back to Robbie Arevalo at [facility]. Treatment Notes Test Name Order Date HEMOGLOBIN A1c 2020-11-12 Comprehensive Metabolic Profile (CMP) 2020-11-12 CBC with Differential 2020-11-12 MAGNESIUM LEVEL 2020-11-12 TSH 2020-11-12 LIPID PANEL (CARDIAC RISK) 2020-11-12 Referrals Referral Date Details Pt is due for repeat scoping Next Appt Details 3 Months-4 Months Reason: Provider Name:Devonte Robbie Guevaramaya, 01:30:00 PM, [address] , , [place], [address], Insurance Providers Payer Name Payer Address Payer Phone Insured Name Patient Relati onship to Insured Coverage Start Date Coverage End Date [facility] [address] [facility] [id number] DOROTHY BLAKE self MEDICARE Part A and B [address] [facility] [phone] [phone] DOROTHY BLAKE self
--- OUTSIDE RECORDS SUMMARY | 2021-02-11 12:00 | CCD ---
Author Author [employer] [facility] Organization [facility] [facility] [employer] [facility] Address Unknown Phone Unavailable Care Team Providers Care It Lead Name Role Phone Devonte Strauss Unavailable PROBLEMS Type Condition ICD9-CM Code VRS54-KC Code Onset Dates Condition S tatus W/U Status Risk SNOMED Code Notes Problem Hx of coronary artery bypass graft Z95.1 Activ e confirmed [id number] Problem Lumbar back pain with radiculopathy affecting le ft lower extremity M54.17 Active confirmed 362008574 Problem Sleep apnea in adult G47.33 Active confirmed 83286845 Problem Hypertension I10 Active confirmed 2437522 3 Problem GERD (gastroesophageal reflux disease) K21.9 A ctive confirmed 411593282 Problem Hypothyroid E03.9 Active confirmed 13483413 Problem Memory impairment R41.3 Active confirmed 38 4427495 Problem Hypertensive renal disease, stage 1 through stage 4 or unspecified chronic kidney disease I12.9 Active confirmed 3315613 6 Problem Type 2 diabetes mellitus wit hout complication, without long-term current use of insulin E11.9 Active confirmed 688350677 Problem Hyperlipemia E78.5 Active confirmed 3612285 4 Problem Hx of colonic polyp Z86.010 Active confirmed 148080214 Problem Chronic kidney disease (CKD) stage G3a/A1, moderately decreased glomerular filtration rate (GFR) between 45-59 mL/min/1.73 square meter and albuminuria creatinine ratio less than 30 mg/g N18.3 Act nay confirmed 435038023 Problem Tobacco use disorder F17.200 Active confirmed 159222038 Problem Hypertensive kidney disease I12.9 Active confirmed 99263055 Problem Rotator cuff arthropathy of right shoulder M12.811 Active confirmed 55082480530402584 Problem Primary osteoarthritis of right shoulder M19.011 Active confirmed [id number] ALLERGIES No Known Allergies ENCOUNTERS from 1945 to 2020-11-26 Encounter Location Date Provider Diagnosis [facility] Brooklynn HUERTAS [phone] [place] [address] Nov, Devonte Strauss Hypothyroid E03.9 IMMUNIZATIONS Vaccine Route Administration Date Status Influenza [...] Notes Start Da te End Date Status Levothyroxine Sodium 88 MCG 1 tablet in the morning on an empty stomach Orally Once a day for 90 day(s) Active Pantoprazole Sodium 40 MG TAKE ONE TABLET BY MOUTH EVERY DAY for 90 Active metFORMIN HCl ER 500 MG 1 tablet with evening meal O rally Once a day for 90 day(s) Nov, Active Toprol XL 50 MG 1 tablet Orally Once a day for 90 days Active Lasix 20 MG 1 tablet Orally Once a day for 90 days Active Nasonex 50 MCG/ACT 2 sprays in each nostril Nasally Once a day for 90 days Active Lisinopril-hydroCHLOROthiazide 20-12.5 MG 1 tablet Ora lly Once a day for 90 days Active Fish Oil 1000 MG 1 capsule Orally Once a day for 30 day(s) Active Vitamin D 25 MCG (1000 UT) 1 tablet Orally Once a day for 30 day(s) Active Triamcinolone Acetonide 0.1 % 1 application to affecte d area- upper and lower extremity rash Externally Twice a day for 30 days Active Fenofibrate Micronized 200 MG 1 capsule with a meal Orally Once a day for 90 Active Cyclobenzaprine HCl 10 MG TAKE ONE TABLET BY MOUTH TWICE A D AY NEEDED for 90 Active Lovastatin 40 MG 1 tablet with the evening meal Orally Once a da y for 90 days Active Topiramate 50 50mg 2 tabs orally once daily for 90 day(s) Sep, Active Carafate 1 GM 1 tablet on an empty stomach Orally four times a day for 90 day(s) Active Hydrocortisone Butyrate 0.1 % 1 application to scalp E xternally Twice a day for 30 Days Nov, Active Acetaminophen-Codeine 300-60 MG 2 tablet as needed Ora lly every 8 hrs MDD#6 for 30 days Nov, Active Nitroglycerin 0.4 MG one as directed for chest pa in Sublingual as directed for 30 day(s) Active Tylenol PM Extra Strength 500-25 MG 1 tablet at bedtim e as needed Orally Once a day Active Klor-Con 10 10 MEQ 1 tablet Orally once daily for 90 Active Lyrica 50 MG 1 capsule Orally bid for 30 days Active Topiramate 50 MG TAKE TWO TABLETS BY MOUTH EVERY DAY for 90 Active Plavix 75 MG 1 tablet Orally Once a day for 90 days Active Aspirin 81 MG 1 tablet Orally Once a day Active PROCEDURES No Information RESULTS No Results REASON FOR VISIT lab results MEDICAL (GENERAL) HISTORY Type Description Date Medical [...] Treatment Notes Treatm ent Clinical Notes Nov, Hypothyroid (ICD-10 - E03.9) PLAN OF TREATMENT Medication Medication Name Sig Start Date Stop Date Hydrocortisone Butyrate 0.1 % 1 application to scalp E xternally Twice a day for 30 Days Nov, Plavix 75 MG 1 tablet Orally Once a day for 90 days Levothyroxine Sodium 88 MCG 1 tablet in the morning on an empty stomach Orally Once a day for 90 day(s) metFORMIN HCl ER 500 MG 1 tablet with evening meal O rally Once a day for 90 day(s) Nov, Lasix 20 MG 1 tablet Orally Once a day for 90 days Lisinopril-hydroCHLOROthiazide 20-12.5 MG 1 tablet Ora lly Once a day for 90 days Pantoprazole Sodium 40 MG TAKE ONE TABLET BY MOUTH EVERY DAY for 90 Toprol XL 50 MG 1 tablet Orally Once a day for 90 days Next Appt Details Provider Name:Devonte Robbie Strauss, 01:30:00 PM, [address] , , [place], [address], Insurance Providers Payer Name Payer Address Payer Phone Insured Name Patient Relati onship to Insured Coverage Start Date Coverage End Date [facility] [address] [facility] [id number] DOROTHY BLAKE self MEDICARE Part A and B [address] [facility] [phone] DOROTHY BLAKE self
--- OUTSIDE RECORDS SUMMARY | 2021-02-11 12:01 | CCD ---
Author Author [facility] Organization [facility] Address Unknown Phone Unavailable Care Team Providers Care Signal Maintenance Technician Name Role Phone JENNIENGRobbie Leavitt DO Unavailable Unavailable HUIZENGA, D SAGRARIO DO Unavailable Unavailable HUIZENGA, D SAGRARIO DO Unavailable Unavailable HUIZENGA, Robbie ZABALA DO Unavailable Unavailable HUIZENGA, Robbie ZABALA DO Unavailable Unavailable HUIZENGA, Robbie ZABALA DO Unavailable Unavailable HUIZENGA D SAGRARIO DO Unavailable Unavailable HUIZENGA, Robbie ZABALA DO Unavailable Unavailable HUIZENGARobbie DO Unavailable Unavailable HUIZENGARobbie DO Unavailable Unavailable HUIZENGARobbie DO Unavailable Unavailable HUIZENGARobbie DO Unavailable Unavailable HUIZENGA D SAGRARIO DO Unavailable Unavailable HUIZENGARobbie DO Unavailable Unavailable HUIZENGA D SAGRARIO DO Unavailable Unavailable HUIZENGARobbie DO Unavailable Unavailable HUIZENGARobbie DO Unavailable Unavailable HUIZENGA D SAGRARIO DO Unavailable Unavailable HUIZENGA D SAGRARIO DO Unavailable Unavailable HUIZENGA D SAGRARIO DO Unavailable Unavailable HUIZENGA D SAGRARIO DO Unavailable Unavailable HUIZENGA Robbie ZABALA DO Unavailable Unavailable HUIZENGA, Robbie ZABALA DO Unavailable Unavailable HUIZENGA, Robbie ZABALA DO Unavailable Unavailable HUIZENGA, Robbie ZABALA DO Unavailable Unavailable HUIZENGA, Robbie ZABALA DO Unavailable Unavailable HUIZENGA, Robbie ZABALA DO Unavailable Unavailable HUIZENGA, Robbie ZABALA DO Unavailable Unavailable HUIZENGA, Robbie ZABALA DO Unavailable Unavailable HUIZENGA, Robbie ZABALA DO Unavailable Unavailable HUIZENGA, Robbie ZABALA DO Unavailable Unavailable HUIZENGA, Robbie ZABALA DO Unavailable Unavailable HUIZENGA, Robbie ZABALA DO Unavailable Unavailable HUIZENGA, Robbie ZABALA DO Unavailable Unavailable HUIZENGA, Robbie ZABALA DO Unavailable Unavailable HUIZENGA, Robbie ZABALA DO Unavailable Unavailable HUIZENGA, Robbie ZABALA DO Unavailable Unavailable HUIZENGA, Robbie ZABALA DO Unavailable Unavailable HUIZENGA, Robbie ZABALA DO Unavailable Unavailable HUIZENGA, Robbie ZABALA DO Unavailable Unavailable HUIZENGA, Robbie ZABALA DO Unavailable Unavailable HUIZENGA, Robbie ZABALA DO Unavailable Unavailable HUIZENGA, Robbie ZABALA DO Unavailable Unavailable HUIZENGA, Robbie ZABALA DO Unavailable Unavailable HUIZENGA, Robbie ZABALA DO Unavailable Unavailable HUIZENGA, Robbie ZABALA DO Unavailable Unavailable HUIZENGA, Robbie ZABALA DO Unavailable Unavailable HUIZENGA, Robbie ZABALA DO Unavailable Unavailable HUIZENGA, Robbie ZABALA DO Unavailable Unavailable HUIZENGA, Robbie ZABALA DO Unavailable Unavailable HUIZENGA, Robbie ZABALA DO Unavailable Unavailable HUIZENGA, Robbie ZABALA DO Unavailable Unavailable HUIZENGA, Robbie ZABALA DO Unavailable Unavailable HUIZENGA, Robbie ZABALA DO Unavailable Unavailable HUIZENGA, Robbie ZABALA DO Unavailable Unavailable HUIZENGA, Robbie ZABALA DO Unavailable Unavailable HUIZENGA, Robbie ZABALA DO Unavailable Unavailable HUIZENGA, Robbie ZABALA DO Unavailable Unavailable HUIZENGA, Robbie ZABALA DO Unavailable Unavailable HUIZENGA, Robbie ZABALA DO Unavailable Unavailable HUIZENGA, Robbie ZABALA DO Unavailable Unavailable HUIZENGA, Robbie ZABALA DO Unavailable Unavailable HUIZENGA, Robbie ZABALA DO Unavailable Unavailable HUIZENGA, Robbie ZABALA DO Unavailable Unavailable HUIZENGA, Robbie ZABALA DO Unavailable Unavailable HUIZENGA, Robbie ZABALA DO Unavailable Unavailable HUIZENGA, D SAGRARIO DO Unavailable Unavailable HUIZENGA, D SAGRARIO DO Unavailable Unavailable HUIZENGA, D SAGRARIO DO Unavailable Unavailable HUIZENGA, D SAGRARIO DO Unavailable Unavailable HUIZENGA, D SAGRARIO DO Unavailable Unavailable HUIZENGA, D SAGRARIO DO Unavailable Unavailable HUIZENGA, D SAGRARIO DO Unavailable Unavailable HUIZENGA, D SAGRARIO DO Unavailable Unavailable HUIZENGA, D SAGRARIO DO Unavailable Unavailable HUIZENGA, D SAGRARIO DO Unavailable Unavailable HUIZENGA, D SAGRARIO DO Unavailable Unavailable Alex, A Nargish MD Unavailable Unavailable Alex, A Nargish MD Unavailable Unavailable Alex, A Nargish MD Unavailable Unavailable Alex, A Nargish MD Unavailable Unavailable Unkenholz, M Cristo MD Unavailable Unavailable Unkenholz, M Cristo MD Unavailable Unavailable Unkenholz, M Cristo MD Unavailable Unavailable Unkenholz, M Cristo MD Unavailable Unavailable Unkenholz, M Cristo MD Unavailable Unavailable Unkenholz, M Cristo MD Unavailable Unavailable Re-disclosure Warning The records that you are about to access may contain information from federally-assisted alcohol or drug abuse programs. If such information is present, then the following federally mandated warning applies: This information has been disclosed to you from records protected by federal confidentiality rules (42 CFR part 2). The federal rules prohibit you from making any further disclosure of this information unless further disclosure is expressly permitted by the written consent of the person to whom it pertains or as otherwise permitted by 42 CFR part 2. A general authorization for the release of medical or other information is NOT sufficient for this purpose. The Federal rules restrict any use of the information to criminally investigate or prosecute any alcohol or drug abuse patient.The records that you are about to access may contain highly sensitive health information, the redisclosure of which is protected by Article 27-F of the [facility] Public Health law. If you continue you may have access to information: Regarding HIV / AIDS; Provided by facilities licensed or operated by the [facility] Office of Mental Health; or Provided by the [facility] Office for People With Developmental Disabilities. If such information is present, then the following [facility] mandated warning applies: This information has been disclosed to you from confidential records which are protected by state law. State law prohibits you from making any further disclosure of this information without the specific written consent of the person to whom it pertains, or as otherwise permitted by law. Any unauthorized further disclosure in violation of state law may result in a fine or long-term sentence or both. A general authorization for the release of medical or other information is NOT sufficient authorization for further disc losure. Allergies and Adverse Reactions Type Description Substance Reaction Status Data Source(s ) Propensity to adverse reactions Propensity to adverse reacti ons No Known Drug Intolerances [facility] Family History Family Member Name Family Member Gender Family Member Status Date o f Status Description Data Source(s) Unknown Male Problem [facility] ([facility] ) Encounters Encounter Providers Location Date Indications Data Source(s ) [place] [address] [facility] [place] [address] 01/04/2021 12:00:00 AM EDT eCW1 ([facility]) Unknown [address] [facility] [place] [address] 12/11/2020 12:00:00 AM EDT eCW1 ([facility]) Unknown [address] [facility] [place] [address] 12/09/2020 12:00:00 AM EDT eCW1 ([facility]) Unknown [address] [facility] [place] [address] 12/08/2020 12:00:00 AM EDT eCW1 ([facility]) Inpatient Attender: Cecy Johnson MDAdmitter: Cecy dennison MD SURG-ICU 12/05/2020 01:51:00 PM EDT - 12/06/2020 01:20:00 PM EDT [facility] Patient discharged. Inpatient Attender: Cecy Johnson MDA ttender: Cristo Alvarez MDAdmitter: Cecy Johnson MD SURG-ICU 12/05/2020 01:51:00 PM EDT - 12/03/2020 11:43:00 AM EDT [facility] V Attender: Cecy Johnson MDAdmitter: Cecy dennison MD SURG-ICU 12/03/2020 11:15:00 AM EDT [facility] Patient admitted. Emergency Attender: Cristo Alvarez MD SURG-ER 12/02/2020 08:21:00 PM EDT [facility]. Unknown [address] [facility] [address] 11/17/2020 12:00:00 AM EDT eCW1 ([facility]) Outpatient Attender: SAGRARIO [facility] 11/01 11:51:00 AM EDT - 11/16/2020 11:52:00 AM EDT E119 I129 K[address] [facility] E119 I129 K219 E039 Patient discharged. Outpatient [address] [facility] [place] [address] 11/12/2020 12:00:00 AM EDT eCW1 ([facility]) Unknown [address] [facility] [place] [address] 11/03/2020 12:00:00 AM EDT eCW1 ([facility]) Unknown [address] [facility] [place] [address] 09/30/2020 12:00:00 AM EDT eCW1 ([facility]) Unknown [address] [facility] [place] [address] 08/28/2020 12:00:00 AM EDT eCW1 ([facility]) Unknown [address] [facility] [place] [address] 07/02/2020 12:00:00 AM EDT eCW1 ([facility]) Outpatient Attender: SAGRARIO ESCOTO [facility] 06/02 12:29:00 PM EDT - 06/24/2020 12:30:00 PM EDT E039 E[address] [facility] E039 E119 I129 Patient discharged. Unknown [address] [facility] [address] 06/15/2020 12:00:00 AM EDT eCW1 ([facility]) Outpatient [address] [facility] [place] [address] 06/12/2020 12:00:00 AM EST eCW1 ([facility]) Unknown [address] [facility] [place] [address] 06/01/2020 12:00:00 AM EST eCW1 ([facility]) Unknown [address] [facility] [place] [address] 05/29/2020 12:00:00 AM EST eCW1 ([facility]) Unknown [address] [facility] [place] [address] 05/28/2020 12:00:00 AM EST eCW1 ([facility]) Unknown [address] [facility] [place] [address] 05/20/2020 12:00:00 AM EST eCW1 ([facility]) Unknown [address] [facility] [place] [address] 04/30/2020 12:00:00 AM EST eCW1 ([facility]) Unknown [address] [facility] [place] [address] 04/21/2020 12:00:00 AM EST eCW1 ([facility]) Unknown [address] [facility] [address] 04/01/2020 12:00:00 AM EST eCW1 ([facility]) Unknown [address] [facility] [place] [address] 03/30/2020 12:00:00 AM EST eCW1 ([facility]) Unknown [address] [facility] [place] [address] 03/30/2020 12:00:00 AM EST eCW1 ([facility]) Unknown [address] [facility] [place] [address] 03/17/2020 12:00:00 AM EST eCW1 ([facility]) Unknown [address] [facility] [place] [address] 03/05/2020 12:00:00 AM EST eCW1 ([facility]) Unknown [address] [facility] [place] [address] 02/03/2020 12:00:00 AM EST eCW1 ([facility]) Unknown [address] [facility] [place] [address] 01/02/2020 12:00:00 AM EDT eCW1 ([facility]) [facility]ric [address] [facility] [place] [address] 12/16/2019 12:00:00 AM EDT eCW1 ([facility]) Medications Medication Brand Name Start Date Product Form Dose Route Admi nistrative Instructions Pharmacy Instructions Status Indications Reaction Description Data Source(s) 50 mg 01/04/2021 12:00:00 AM EDT tablet 120 TAKE ONE TABLET BY MOUTH FOUR TIMES A DAY NEEDED MAXIMUM DAILY DOSE = 4 TAKE ONE TABLET BY MOUTH FOUR TIMES A DAY NEEDED MAXIMUM DAILY DOSE = 4 SOLD: 01/04/2021 [facility] tramadol hydrochloride 50 MG Oral Tablet traMADol HCl 50 MG traMADol HCl 50 MG 01/04/2021 12:00:00 AM EDT 1.0 {tablet_as_needed} active traMADol HCl 50 MG eCW1 ([facility]) 50 mg 12/28/2020 12:00:00 AM EDT tablet extended release 24 hr 90 TAKE ONE TABLET BY MOUTH EVERY DAY TAKE ONE TABLET BY MOUTH EVERY DAY SOLD: 01/01/2021 [facility] Acetaminophen 300 MG / Codeine Phosphate 60 MG Oral Tablet Acetaminophen-Codeine 300-60 MG Acetaminophen-Codeine 300-60 MG 12/08/2020 12:00:00 AM EDT 2.0 {tablet_as_needed} active Acetaminophen -Codeine 300-60 MG eCW1 ([facility]) Acetaminophen 300 MG / Codeine Phosphate 60 MG Oral Ta blet 300-60 mg ACETAMINOPHEN WITH CODEINE 12/08/2020 12:00:00 AM EDT tablet 180 TAKE TWO TABLETS BY MOUTH EVERY 8 HOURS NEEDED MAXIMUM DAILY DOSE = 6 TAKE TWO TABLETS BY MOUTH EVERY 8 HOURS NEEDED MAXIMUM DAILY DOSE = 6 SOLD: 12/09/2020 [facility] Acetaminophen 300 MG / Codeine Phosphate 60 MG Oral Tablet Acetaminophen-Codeine 300-60 MG Acetaminophen-Codeine 300-60 MG 12/08/2020 12:00:00 AM EDT 2.0 {tablet_as_needed} active Acetaminophen -Codeine 300-60 MG eCW1 ([facility]) Acetaminophen 300 MG / Codeine Phosphate 60 MG Oral Tablet Acetaminophen-Codeine 300-60 MG Acetaminophen-Codeine 300-60 MG 12/08/2020 12:00:00 AM EDT 2.0 {tablet_as_needed} active Acetaminophen -Codeine 300-60 MG eCW1 ([facility]) Acetaminophen 300 MG / Codeine Phosphate 60 MG Oral Tablet Acetaminophen-Codeine 300-60 MG Acetaminophen-Codeine 300-60 MG 12/08/2020 12:00:00 AM EDT 2.0 {tablet_as_needed} active Acetaminophen -Codeine 300-60 MG eCW1 ([facility]) Acetaminophen 300 MG / Codeine Phosphate 60 MG Oral Tablet Acetaminophen-Codeine 300-60 MG Acetaminophen-Codeine 300-60 MG 12/08/2020 12:00:00 AM EDT 2.0 {tablet_as_needed} active Acetaminophen -Codeine 300-60 MG eCW1 ([facility]) Acetaminophen 300 MG / Codeine Phosphate 60 MG Oral Tablet Acetaminophen-Codeine 300-60 MG Acetaminophen-Codeine 300-60 MG 12/08/2020 12:00:00 AM EDT 2.0 {tablet_as_needed} active Acetaminophen -Codeine 300-60 MG eCW1 ([facility]) 20 mg 12/06/2020 12:00:00 AM EDT tablet 30 TAKE ONE TABLET BY MOUTH EVERY DAY TAKE ONE TABLET BY MOUTH EVERY DAY SOLD: 12/07/2020 [facility] Lisinopril 20 MG Oral Tablet [Zestril] Lisinopril (Zes tril) 20 MG TABLET Lisinopril (Zestril) 20 MG TABLET 12/06/2020 12:00:00 AM EDT 20 completed Daily [facility]. 24 HR Metformin hydrochloride 500 MG Ext ended Release Oral Tablet metFORMIN HCl ER 500 MG metFORMIN HCl ER 500 MG 11/17/2020 12:00:00 AM EDT 1.0 {tablet_with_evening_meal} active metFO RMIN HCl ER 500 MG eCW1 ([facility]) 24 HR Metformin hydrochloride 500 MG Ext ended Release Oral Tablet metFORMIN HCl ER 500 MG metFORMIN HCl ER 500 MG 11/17/2020 12:00:00 AM EDT 1.0 {tablet_with_evening_meal} active metFO RMIN HCl ER 500 MG eCW1 ([facility]) 24 HR Metformin hydrochloride 500 MG Ext ended Release Oral Tablet metFORMIN HCl ER 500 MG metFORMIN HCl ER 500 MG 11/17/2020 12:00:00 AM EDT 1.0 {tablet_with_evening_meal} active metFO RMIN HCl ER 500 MG eCW1 ([facility]) 88 mcg 11/17/2020 12:00:00 AM EDT tablet 90 TAKE ONE TABLET BY MOUTH EVERY MORNING ON AN EMPTY STOMACH TAKE ONE TABLET BY MOUTH EVERY MORNING O N AN EMPTY STOMACH SOLD: 11/19/2020 [facility] 24 HR Metformin hydrochloride 500 MG Ext ended Release Oral Tablet metFORMIN HCl ER 500 MG metFORMIN HCl ER 500 MG 11/17/2020 12:00:00 AM EDT 1.0 {tablet_with_evening_meal} active metFO RMIN HCl ER 500 MG eCW1 ([facility]) 24 HR Metformin hydrochloride 500 MG Ext ended Release Oral Tablet metFORMIN HCl ER 500 MG metFORMIN HCl ER 500 MG 11/17/2020 12:00:00 AM EDT 1.0 {tablet_with_evening_meal} active metFO RMIN HCl ER 500 MG eCW1 ([facility]) 24 HR Metformin hydrochloride 500 MG Extended Release Oral T ablet METFORMIN HCL 11/17/2020 12:00:00 AM EDT tablet extended release 24 hr 90 TAKE ONE TABLET BY MOUTH EVERY DAY WITH EVENING MEAL TAKE ONE TABLET BY MOUTH EVERY DAY WITH EVENING MEAL SOLD: 11/19/2020 [facility] pantoprazole 40 MG Delayed Release Oral Tablet PANTOPRAZOLE SODIUM 11/13/2020 12:00:00 AM EDT tablet,delayed release (DR/EC) 90 T SHANKAR ONE TABLET BY MOUTH EVERY DAY TAKE ONE TABLET BY MOUTH EVERY DAY SOLD: 11/16/2020 [facility] Hydrocortisone butyrate 1 MG/ML Topical Solution [place] cortisone Butyrate 0.1 % Hydrocortisone Butyrate 0.1 % 11/12/2020 12:00:00 AM EDT 1.0 {application_to_scalp} active Hydrocort isone Butyrate 0.1 % eCW1 ([facility]) Hydrocortisone butyrate 1 MG/ML Topical Solution [place] cortisone Butyrate 0.1 % Hydrocortisone Butyrate 0.1 % 11/12/2020 12:00:00 AM EDT 1.0 {application_to_scalp} active Hydrocort isone Butyrate 0.1 % eCW1 ([facility]) Hydrocortisone butyrate 1 MG/ML Topical Solution [place] cortisone Butyrate 0.1 % Hydrocortisone Butyrate 0.1 % 11/12/2020 12:00:00 AM EDT 1.0 {application_to_scalp} active Hydrocort isone Butyrate 0.1 % eCW1 ([facility]) Hydrocortisone butyrate 1 MG/ML Topical Solution [place] cortisone Butyrate 0.1 % Hydrocortisone Butyrate 0.1 % 11/12/2020 12:00:00 AM EDT 1.0 {application_to_scalp} active Hydrocort isone Butyrate 0.1 % eCW1 ([facility]) Hydrocortisone butyrate 1 MG/ML Topical Solution [place] cortisone Butyrate 0.1 % Hydrocortisone Butyrate 0.1 % 11/12/2020 12:00:00 AM EDT 1.0 {application_to_scalp} active Hydrocort isone Butyrate 0.1 % eCW1 ([facility]) Acetaminophen 300 MG / Codeine Phosphate 60 MG Oral Tablet Acetaminophen-Codeine 300-60 MG Acetaminophen-Codeine 300-60 MG 11/03/2020 12:00:00 AM EDT 2.0 {tablet_as_needed} active Acetaminophen -Codeine 300-60 MG eCW1 ([facility]) Acetaminophen 300 MG / Codeine Phosphate 60 MG Oral Ta blet 300-60 mg ACETAMINOPHEN WITH CODEINE 11/03/2020 12:00:00 AM EDT tablet 180 TAKE 2 TABLETS BY MOUTH EVERY 8 HOURS NEEDED MAXIMUM DAILY DOSE = 6 TAKE 2 TABLETS BY MOUTH EVERY 8 HOURS NEEDED MAXIMUM DAILY DOSE = 6 SOLD: 11/04/2020 [facility] Acetaminophen 300 MG / Codeine Phosphate 60 MG Oral Tablet Acetaminophen-Codeine 300-60 MG Acetaminophen-Codeine 300-60 MG 11/03/2020 12:00:00 AM EDT 2.0 {tablet_as_needed} active Acetaminophen -Codeine 300-60 MG eCW1 ([facility]) Acetaminophen 300 MG / Codeine Phosphate 60 MG Oral Tablet Acetaminophen-Codeine 300-60 MG Acetaminophen-Codeine 300-60 MG 11/03/2020 12:00:00 AM EDT 2.0 {tablet_as_needed} active Acetaminophen -Codeine 300-60 MG eCW1 ([facility]) Acetaminophen 300 MG / Codeine Phosphate 60 MG Oral Ta blet 300-60 mg ACETAMINOPHEN WITH CODEINE 09/30/2020 12:00:00 AM EDT tablet 180 TAKE TWO TABLETS BY MOUTH EVERY 8 HOURS NEEDED MAXIMUM DAILY DOSE = 6 TAKE TWO TABLETS BY MOUTH EVERY 8 HOURS NEEDED MAXIMUM DAILY DOSE = 6 SOLD: 10/01/2020 [facility] 50 mg 09/30/2020 12:00:00 AM EDT capsule 60 TAKE ONE CAPSULE BY MOUTH TWICE A DAY MAXIMUM DAILY DOSE = 2 TAKE ONE CAPSULE BY MOUTH TWICE A DAY MA XIMUM DAILY DOSE = 2 SOLD: 10/01/2020 [facility] 50 mg 09/30/2020 12:00:00 AM EDT capsule 60 TAKE ONE CAPSULE BY MOUTH TWICE A DAY MAXIMUM DAILY DOSE = 2 TAKE ONE CAPSULE BY MOUTH TWICE A DAY MA XIMUM DAILY DOSE = 2 SOLD: 11/01/2020 [facility] 50 mg 09/30/2020 12:00:00 AM EDT capsule 60 TAKE ONE CAPSULE BY MOUTH TWICE A DAY MAXIMUM DAILY DOSE = 2 TAKE ONE CAPSULE BY MOUTH TWICE A DAY MA XIMUM DAILY DOSE = 2 SOLD: 01/01/2021 [facility] 50 mg 09/22/2020 12:00:00 AM EDT tablet 180 TAKE TWO TABLETS BY MOUTH EVERY DAY TAKE TWO TABLETS BY MOUTH EVERY DAY SOLD: 10/01/2020 [facility] 50 mg 09/22/2020 12:00:00 AM EDT tablet 180 TAKE TWO TABLETS BY MOUTH EVERY DAY TAKE TWO TABLETS BY MOUTH EVERY DAY SOLD: 01/01/2021 [facility] Cyclobenzaprine hydrochloride 10 MG Oral Tablet CYCLOBENZAPR INE HCL 09/12/2020 12:00:00 AM EDT tablet 180 TAKE ONE TABLET BY MOUTH TWICE A DAY NEEDED TAKE ONE TABLET BY MOUTH TWICE A DAY NEEDED SOLD: 09/15/2020 [facility] Acetaminophen 300 MG / Codeine Phosphate 60 MG Oral Ta blet 300-60 mg ACETAMINOPHEN WITH CODEINE 08/28/2020 12:00:00 AM EDT tablet 180 TAKE TWO TABLETS BY MOUTH EVERY 8 HOURS NEEDED MAXIMUM DAILY DOSE = SIX TABLETS TAKE TWO TABLETS BY MOUTH EVERY 8 HOURS NEEDED MAXIMUM DAILY DOSE = SIX TABLETS SOLD: 08/29/2020 [facility] 300-60 mg 07/02/2020 12:00:00 AM EDT tablet 180 TAKE TWO TABLETS BY MOUTH EVERY 8 HOURS NEEDED MAXIMUM DAILY DOSE = 6 TAKE TWO TABLETS BY MOUTH EVERY 8 HOURS NEEDED MAXIMUM DAILY DOSE = 6 SOLD: 07/02/2020 [facility] Fenofibrate 200 MG Oral Capsule FENOFIBRATE,MICRONIZED 06/30 12:00:00 AM EDT capsule 90 TAKE ONE CAPSULE BY MOUTH EV BRIANA DAY WITH FOOD TAKE ONE CAPSULE BY MOUTH EVERY DAY WITH FOOD SOLD: 01/01/2021 [facility] Fenofibrate 200 MG Oral Capsule FENOFIBRATE,MICRONIZED 06/30 12:00:00 AM EDT capsule 90 TAKE ONE CAPSULE BY MOUTH EV BRIANA DAY WITH FOOD TAKE ONE CAPSULE BY MOUTH EVERY DAY WITH FOOD SOLD: 10/01/2020 [facility] Fenofibrate 200 MG Oral Capsule FENOFIBRATE,MICRONIZED 06/30 12:00:00 AM EDT capsule 90 TAKE ONE CAPSULE BY MOUTH EV BRIANA DAY WITH FOOD TAKE ONE CAPSULE BY MOUTH EVERY DAY WITH FOOD SOLD: 07/02/2020 [facility] 300-60 mg 06/03/2020 12:00:00 AM EST tablet 180 TAKE 2 TABLETS BY MOUTH EVERY 8 HOURS NEEDED MAX = 6 TABS/DAY TAKE 2 TABLETS BY MOUTH EVERY 8 HOURS NEEDED MAX = 6 TABS/DAY SOLD: 06/03/2020 [facility] 1 gram 05/29/2020 12:00:00 AM EST tablet 360 TAKE ONE TABLET BY MOUTH FOUR TIMES A DAY ON AN EMPTY STOMACH TAKE ONE TABLET BY MOUTH FOUR TIMES A DA Y ON AN EMPTY STOMACH SOLD: 08/24/2020 [facility] 1 gram 05/29/2020 12:00:00 AM EST tablet 360 TAKE ONE TABLET BY MOUTH FOUR TIMES A DAY ON AN EMPTY STOMACH TAKE ONE TABLET BY MOUTH FOUR TIMES A DA Y ON AN EMPTY STOMACH SOLD: 05/29/2020 [facility] 1 gram 05/29/2020 12:00:00 AM EST tablet 360 TAKE ONE TABLET BY MOUTH FOUR TIMES A DAY ON AN EMPTY STOMACH TAKE ONE TABLET BY MOUTH FOUR TIMES A DA Y ON AN EMPTY STOMACH SOLD: 12/01/2020 [facility] 50 mcg/actuation 05/28/2020 12:00:00 AM EST spray,non-aeroso l 51 SPRAY TWO SPRAYS IN EACH NOSTRIL EVERY DAY SPRAY TWO SPRAYS IN EACH NOSTRIL EVERY DAY SOLD: 05/29/2020 [facility] 50 mcg/actuation 05/28/2020 12:00:00 AM EST spray,non-aeroso l 51 SPRAY TWO SPRAYS IN EACH NOSTRIL EVERY DAY SPRAY TWO SPRAYS IN EACH NOSTRIL EVERY DAY SOLD: 12/01/2020 [facility] 50 mcg/actuation 05/28/2020 12:00:00 AM EST spray,non-aeroso l 51 SPRAY TWO SPRAYS IN EACH NOSTRIL EVERY DAY SPRAY TWO SPRAYS IN EACH NOSTRIL EVERY DAY SOLD: 08/29/2020 [facility] Lovastatin 40 MG Oral Tablet LOVASTATIN 05/21/2020 12:00:00 AM EST tab let 90 TAKE ONE TABLET BY MOUTH EVERY DAY WITH EVENING MEAL TAKE ONE TABLET BY MOUTH EVERY DAY WITH EVENING MEAL SOLD: 05/21/2020 [facility] Lovastatin 40 MG Oral Tablet LOVASTATIN 05/21/2020 12:00:00 AM EST tab let 90 TAKE ONE TABLET BY MOUTH EVERY DAY WITH EVENING MEAL TAKE ONE TABLET BY MOUTH EVERY DAY WITH EVENING MEAL SOLD: 08/23/2020 [facility] Lovastatin 40 MG Oral Tablet LOVASTATIN 05/21/2020 12:00:00 AM EST tab let 90 TAKE ONE TABLET BY MOUTH EVERY DAY WITH EVENING MEAL TAKE ONE TABLET BY MOUTH EVERY DAY WITH EVENING MEAL SOLD: 11/19/2020 [facility] 300-60 mg 05/04/2020 12:00:00 AM EST tablet 180 TAKE 2 TABLETS BY MOUTH EVERY 8 HOURS NEEDED MAXIMUM DAILY DOSE = 6 TABLETS TAKE 2 TABLETS BY MOUTH EVERY 8 HOURS NEEDED MAXIMUM DAILY DOSE = 6 TABLETS SOLD: 05/05/2020 [facility] 50 mg 04/30/2020 12:00:00 AM EST capsule 60 TAKE ONE CAPSULE BY MOUTH TWICE A DAY MAXIMUM DAILY DOSE = 2 TAKE ONE CAPSULE BY MOUTH TWICE A DAY ELÍAS MCGINNIS DAILY DOSE = 2 SOLD: 05/01/2020 [facility] 50 mg 04/30/2020 12:00:00 AM EST capsule 60 TAKE ONE CAPSULE BY MOUTH TWICE A DAY MAXIMUM DAILY DOSE = 2 TAKE ONE CAPSULE BY MOUTH TWICE A DAY MA XIMUM DAILY DOSE = 2 SOLD: 08/24/2020 [facility] 50 mg 04/30/2020 12:00:00 AM EST capsule 60 TAKE ONE CAPSULE BY MOUTH TWICE A DAY MAXIMUM DAILY DOSE = 2 TAKE ONE CAPSULE BY MOUTH TWICE A DAY MA XIMUM DAILY DOSE = 2 SOLD: 05/31/2020 [facility] 50 mg 04/30/2020 12:00:00 AM EST capsule 60 TAKE ONE CAPSULE BY MOUTH TWICE A DAY MAXIMUM DAILY DOSE = 2 TAKE ONE CAPSULE BY MOUTH TWICE A DAY MA XIMUM DAILY DOSE = 2 SOLD: 06/25/2020 [facility] 50 mg 04/30/2020 12:00:00 AM EST capsule 60 TAKE ONE CAPSULE BY MOUTH TWICE A DAY MAXIMUM DAILY DOSE = 2 TAKE ONE CAPSULE BY MOUTH TWICE A DAY MA XIMUM DAILY DOSE = 2 SOLD: 07/26/2020 [facility] 300-60 mg 04/05/2020 12:00:00 AM EST tablet 180 TAKE TWO TABLETS BY MOUTH EVERY 8 HOURS NEEDED MAXIMUM DAILY DOSE = SIX TABLETS TAKE TWO TABLETS BY MOUTH EVERY 8 HOURS NEEDED MAXIMUM DAILY DOSE = SIX TABLETS SOLD: 04/05/2020 [facility] 50 mg 04/02/2020 12:00:00 AM EST capsule 60 TAKE ONE CAPSULE BY MOUTH TWICE A DAY MAXIMUM DAILY DOSE = 2 CAPSULES TAKE ONE CAPSULE BY MOUTH TWICE A DAY MAXIMUM DAILY DOSE = 2 CAPSULES SOLD: 04/02/2020 [facility] 50 mg 03/30/2020 12:00:00 AM EST tablet extended release 24 hr 90 TAKE ONE TABLET BY MOUTH EVERY DAY TAKE ONE TABLET BY MOUTH EVERY DAY SOLD: 04/02/2020 [facility] 20-12.5 mg 03/30/2020 12:00:00 AM EST tablet 90 TAKE ONE TABLET BY MOUTH EVERY DAY TAKE ONE TABLET BY MOUTH EVERY DAY SOLD: 04/02/2020 [facility] 20-12.5 mg 03/30/2020 12:00:00 AM EST tablet 90 TAKE ONE TABLET BY MOUTH EVERY DAY TAKE ONE TABLET BY MOUTH EVERY DAY SOLD: 06/29/2020 [facility] 50 mg 03/30/2020 12:00:00 AM EST tablet extended release 24 hr 90 TAKE ONE TABLET BY MOUTH EVERY DAY TAKE ONE TABLET BY MOUTH EVERY DAY SOLD: 06/29/2020 [facility] 50 mg 03/30/2020 12:00:00 AM EST tablet extended release 24 hr 90 TAKE ONE TABLET BY MOUTH EVERY DAY TAKE ONE TABLET BY MOUTH EVERY DAY SOLD: 10/01/2020 [facility] 20-12.5 mg 03/30/2020 12:00:00 AM EST tablet 90 TAKE ONE TABLET BY MOUTH EVERY DAY TAKE ONE TABLET BY MOUTH EVERY DAY SOLD: 10/01/2020 [facility] 300-60 mg 03/05/2020 12:00:00 AM EST tablet 180 TAKE TWO TABLETS BY MOUTH EVERY 8 HOURS NEEDED MAXIMUM DAILY DOSE = 6 TAKE TWO TABLETS BY MOUTH EVERY 8 HOURS NEEDED MAXIMUM DAILY DOSE = 6 SOLD: 03/07/2020 [facility] pantoprazole 40 MG Delayed Release Oral Tablet PANTOPRAZOLE SODIUM 03/03/2020 12:00:00 AM EST tablet,delayed release (DR/EC) 90 T SHANKAR ONE TABLET BY MOUTH EVERY DAY TAKE ONE TABLET BY MOUTH EVERY DAY SOLD: 05/31/2020 [facility] pantoprazole 40 MG Delayed Release Oral Tablet PANTOPRAZOLE SODIUM 03/03/2020 12:00:00 AM EST tablet,delayed release (DR/EC) 90 T SHANKAR ONE TABLET BY MOUTH EVERY DAY TAKE ONE TABLET BY MOUTH EVERY DAY SOLD: 08/29/2020 [facility] pantoprazole 40 MG Delayed Release Oral Tablet PANTOPRAZOLE SODIUM 03/03/2020 12:00:00 AM EST tablet,delayed release (DR/EC) 90 T SHANKAR ONE TABLET BY MOUTH EVERY DAY TAKE ONE TABLET BY MOUTH EVERY DAY SOLD: 03/03/2020 [facility] Potassium Chloride 10 MEQ Extended Release Oral Tablet POTAS SIUM CHLORIDE 02/11/2020 12:00:00 AM EST tablet extended release 90 TAKE ONE TABLET BY MOUTH EVERY DAY TAKE ONE TABLET BY MOUTH EVERY DAY SOLD: 08/23/2020 [facility] Potassium Chloride 10 MEQ Extended Release Oral Tablet POTAS SIUM CHLORIDE 02/11/2020 12:00:00 AM EST tablet extended release 90 TAKE ONE TABLET BY MOUTH EVERY DAY TAKE ONE TABLET BY MOUTH EVERY DAY SOLD: 11/19/2020 [facility] Potassium Chloride 10 MEQ Extended Release Oral Tablet POTAS SIUM CHLORIDE 02/11/2020 12:00:00 AM EST tablet extended release 90 TAKE ONE TABLET BY MOUTH EVERY DAY TAKE ONE TABLET BY MOUTH EVERY DAY SOLD: 05/15/2020 [facility] Potassium Chloride 10 MEQ Extended Release Oral Tablet POTAS SIUM CHLORIDE 02/11/2020 12:00:00 AM EST tablet extended release 90 TAKE ONE TABLET BY MOUTH EVERY DAY TAKE ONE TABLET BY MOUTH EVERY DAY SOLD: 02/12/2020 [facility] 1 gram 02/10/2020 12:00:00 AM EST tablet 120 TAKE ONE TABLET BY MOUTH FOUR TIMES A DAY ON AN EMPTY STOMACH TAKE ONE TABLET BY MOUTH FOUR TIMES A DA Y ON AN EMPTY STOMACH SOLD: 02/12/2020 [facility] 300-60 mg 01/03/2020 12:00:00 AM EDT tablet 180 TAKE TWO TABLETS BY MOUTH EVERY 8 HOURS NEEDED MAXIMUM DAILY DOSE = 6 TAKE TWO TABLETS BY MOUTH EVERY 8 HOURS NEEDED MAXIMUM DAILY DOSE = 6 SOLD: 01/03/2020 [facility] 20 mg 12/16/2019 12:00:00 AM EDT tablet 90 TAKE ONE TABLET BY MOUTH EVERY DAY TAKE ONE TABLET BY MOUTH EVERY DAY SOLD: 09/15/2020 [facility] 75 mg 12/16/2019 12:00:00 AM EDT tablet 90 TAKE ONE TABLET BY MOUTH EVERY DAY TAKE ONE TABLET BY MOUTH EVERY DAY SOLD: 12/18/2019 [facility] 75 mcg 12/16/2019 12:00:00 AM EDT tablet 90 TAKE ONE TABLET BY MOUTH EVERY MORNING ON AN EMPTY STOMACH TAKE ONE TABLET BY MOUTH EVERY MORNING O N AN EMPTY STOMACH SOLD: 03/17/2020 [facility] 75 mg 12/16/2019 12:00:00 AM EDT tablet 90 TAKE ONE TABLET BY MOUTH EVERY DAY TAKE ONE TABLET BY MOUTH EVERY DAY SOLD: 06/17/2020 [facility] 75 mcg 12/16/2019 12:00:00 AM EDT tablet 90 TAKE ONE TABLET BY MOUTH EVERY MORNING ON AN EMPTY STOMACH TAKE ONE TABLET BY MOUTH EVERY MORNING O N AN EMPTY STOMACH SOLD: 06/17/2020 [facility] 75 mcg 12/16/2019 12:00:00 AM EDT tablet 90 TAKE ONE TABLET BY MOUTH EVERY MORNING ON AN EMPTY STOMACH TAKE ONE TABLET BY MOUTH EVERY MORNING O N AN EMPTY STOMACH SOLD: 12/18/2019 [facility] 75 mg 12/16/2019 12:00:00 AM EDT tablet 90 TAKE ONE TABLET BY MOUTH EVERY DAY TAKE ONE TABLET BY MOUTH EVERY DAY SOLD: 09/15/2020 [facility] 75 mg 12/16/2019 12:00:00 AM EDT tablet 90 TAKE ONE TABLET BY MOUTH EVERY DAY TAKE ONE TABLET BY MOUTH EVERY DAY SOLD: 03/17/2020 [facility] 75 mcg 12/16/2019 12:00:00 AM EDT tablet 90 TAKE ONE TABLET BY MOUTH EVERY MORNING ON AN EMPTY STOMACH TAKE ONE TABLET BY MOUTH EVERY MORNING O N AN EMPTY STOMACH SOLD: 09/15/2020 [facility] 20 mg 12/16/2019 12:00:00 AM EDT tablet 90 TAKE ONE TABLET BY MOUTH EVERY DAY TAKE ONE TABLET BY MOUTH EVERY DAY SOLD: 12/18/2019 [facility] 20 mg 12/16/2019 12:00:00 AM EDT tablet 90 TAKE ONE TABLET BY MOUTH EVERY DAY TAKE ONE TABLET BY MOUTH EVERY DAY SOLD: 06/17/2020 [facility] 20 mg 12/16/2019 12:00:00 AM EDT tablet 90 TAKE ONE TABLET BY MOUTH EVERY DAY TAKE ONE TABLET BY MOUTH EVERY DAY SOLD: 03/17/2020 [facility] Cyclobenzaprine hydrochloride 10 MG Oral Tablet CYCLOBENZAPR INE HCL 12/11/2019 12:00:00 AM EDT tablet 180 TAKE ONE TABLET BY MOUTH TWICE A DAY NEEDED TAKE ONE TABLET BY MOUTH TWICE A DAY NEEDED SOLD: 06/17/2020 [facility] Cyclobenzaprine hydrochloride 10 MG Oral Tablet CYCLOBENZAPR INE HCL 12/11/2019 12:00:00 AM EDT tablet 180 TAKE ONE TABLET BY MOUTH TWICE A DAY NEEDED TAKE ONE TABLET BY MOUTH TWICE A DAY NEEDED SOLD: 03/17/2020 [facility] Cyclobenzaprine hydrochloride 10 MG Oral Tablet CYCLOBENZAPR INE HCL 12/11/2019 12:00:00 AM EDT tablet 180 TAKE ONE TABLET BY MOUTH TWICE A DAY NEEDED TAKE ONE TABLET BY MOUTH TWICE A DAY NEEDED SOLD: 12/14/2019 [facility] 50 mg 12/05/2019 12:00:00 AM EDT capsule 60 TAKE ONE CAPSULE BY MOUTH TWICE A DAY MAXIMUM DAILY DOSE = 2 TAKE ONE CAPSULE BY MOUTH TWICE A DAY MA XIMUM DAILY DOSE = 2 SOLD: 03/03/2020 [facility] 50 mg 12/05/2019 12:00:00 AM EDT capsule 60 TAKE ONE CAPSULE BY MOUTH TWICE A DAY MAXIMUM DAILY DOSE = 2 TAKE ONE CAPSULE BY MOUTH TWICE A DAY MA XIMUM DAILY DOSE = 2 SOLD: 01/03/2020 [facility] 50 mg 12/05/2019 12:00:00 AM EDT capsule 60 TAKE ONE CAPSULE BY MOUTH TWICE A DAY MAXIMUM DAILY DOSE = 2 TAKE ONE CAPSULE BY MOUTH TWICE A DAY ELÍAS MCGINNIS DAILY DOSE = 2 SOLD: 02/03/2020 [facility] 50 mg 09/27/2019 12:00:00 AM EDT tablet 180 TAKE TWO TABLETS BY MOUTH EVERY DAY TAKE TWO TABLETS BY MOUTH EVERY DAY SOLD: 01/01/2020 [facility] 50 mg 09/27/2019 12:00:00 AM EDT tablet 180 TAKE TWO TABLETS BY MOUTH EVERY DAY TAKE TWO TABLETS BY MOUTH EVERY DAY SOLD: 06/27/2020 [facility] 50 mg 09/27/2019 12:00:00 AM EDT tablet 180 TAKE TWO TABLETS BY MOUTH EVERY DAY TAKE TWO TABLETS BY MOUTH EVERY DAY SOLD: 04/02/2020 [facility] Fenofibrate 200 MG Oral Capsule FENOFIBRATE,MICRONIZED 07/07 12:00:00 AM EDT capsule 90 TAKE ONE CAPSULE BY MOUTH EV BRIANA DAY WITH A MEAL TAKE ONE CAPSULE BY MOUTH EVERY DAY WITH A MEAL SOLD: 01/01/2020 [facility] Fenofibrate 200 MG Oral Capsule FENOFIBRATE,MICRONIZED 07/07 12:00:00 AM EDT capsule 90 TAKE ONE CAPSULE BY MOUTH EV BRIANA DAY WITH A MEAL TAKE ONE CAPSULE BY MOUTH EVERY DAY WITH A MEAL SOLD: 04/02/2020 [facility] Lovastatin 40 MG Oral Tablet LOVASTATIN 05/27/2019 12:00:00 AM EST tab let 90 TAKE 1 TABLET BY MOUTH EVERY DAY WITH A MEAL TAKE 1 TABLET BY MOUTH EVERY DAY WITH A MEAL SOLD: 02/23/2020 [facility] 50 mg 03/30/2019 12:00:00 AM EST tablet extended release 24 hr 90 TAKE ONE TABLET BY MOUTH EVERY DAY TAKE ONE TABLET BY MOUTH EVERY DAY SOLD: 01/01/2020 [facility] 20-12.5 mg 03/30/2019 12:00:00 AM EST tablet 90 TAKE ONE TABLET BY MOUTH EVERY DAY TAKE ONE TABLET BY MOUTH EVERY DAY SOLD: 01/01/2020 [facility] Hydrochlorothiazide 12.5 MG / Lisinopril 20 MG Oral Tablet Lisinopril/Hydrochlorothiazide (Lisinopril-Hctz 20-12.5 Mg Tab) 1 Each Tablet Tablet, 1 Tab Oral Lisinopril/Hydrochlorothiazide (Lisinopr il-Hctz 20-12.5 Mg Tab) 1 Each Tablet Tablet, 1 Tab Oral 1 comple jani Daily [facility] Insurance Providers Payer name Policy type / Coverage type Policy ID Covered constitution party ID Covered constitution party's relationship to corona Policy [place] Plan Information [facility] [id number] SP [id number] MEDICARE [id number] Magui [id number] Medicare [place] Medicare Primary [id number] Self [id number] [facility] [id number] Self [id number] [place] BCBS [id number] Magui YLS [id number] MEDICARE [id number] SP [id number] [facility] [id number] SP [id number] BCBS [place] [id number] MEDICARE [id number] SP [id number] [place] [id number] Retired [id number] MEDICARE [id number] Retired [id number] U79 BCBS [place] [id number] SP [id number] [facility] [id number] SP [id number] [place] [id number] S [id number] [place] [id number] Retired [id number] ANSI-Commercial [id number] ANSI-Commercial [id number] ANSI-Medicare Part B [id number] ANSI-Commercial [id number] ANSI-Commercial [id number] ANSI-Medicare Part B [id number] ANSI-Commercial [id number] [facility]-Medicare Part B [id number] ANSI-Commercial [id number] ANSI-Commercial [id number] [facility] [id number] ANSI-Commercial [id number] ANSI-Medicare Part B [id number] ANSI-Commercial [id number] ANSI-Commercial [id number] ANSI-Commercial [id number] ANSI-Medicare Part B [id number] ANSI-Commercial [id number] ANSI-Commercial [id number] ANSI-Commercial [id number] [id number] ANSI-Medicare Part B [id number] ANSI-Medicare Part B [id number] ANSI-Commercial [id number]-sjeo-[id number]-7hus-[id number] ANSI-Commercial [id number]-[id number] [id number] ANSI-Commercial [id number]-d6ur-53v4-731l-[id number] [id number]-m2ys-[id number]-[id number] ANSI-Commercial [id number]-[id number]-[id number] [id number]-[id number] ANSI-Medicare Part B [id number] ANSI-Commercial [id number] ANSI-Medicare Part B [id number] ANSI-Commercial [id number]-61z0-1eig-[id number] 26s9q5l8-61dx-59b3-7eau-68jq144o6dc8 ANSI-Medicare Part B [id number] ANSI-Commercial [id number]-[id number] [id number] ANSI-Commercial [id number]-s4y7-5598-[id number] 601z9m02-f4p4-3190-[id number] ANSI-Medicare Part B [id number] ANSI-Commercial [id number]-g9vf-7c05-[id number]-y7mh-1q46-[id number] ANSI-Commercial [id number]-8v13-21p1-h22t-qk80jk4602g9 qp13wr5w-2x78-59f2-k04c-[id number] ANSI-Medicare Part B [id number] ANSI-Commercial [id number]-z0p6-8m05-i8yk-[id number] if55fz51-w5i7-6t19-m2ey-[id number] ANSI-Commercial [id number]-[id number]-7i8d-kq5m-[id number] ANSI-Commercial kd1fz1xc-[id number]-uw6g-[id number]-t482-934f-kw9n-[id number] ANSI-Medicare Part B [id number] ANSI-Commercial [id number] ANSI-Commercial [id number]-[id number]-ss0c-[id number] ANSI-Medicare Part B [id number] ANSI-Commercial [id number]-[id number] 3v3ibs70-[id number] ANSI-Commercial [id number]-[id number] [id number]-57ym-msk4-0729hsg5716j ANSI-Medicare Part B [id number] ANSI-Commercial [id number]-[id number] 80cq0up0-98y0-033a-[id number] ANSI-Commercial [id number]-[id number] 3xxhvd76-75x4-02uk-[id number] ANSI-Medicare Part B [id number] ANSI-Commercial [id number]-[id number]-[id number] ANSI-Commercial [id number]-[id number]-[id number] [id number]-s897-8vur-[id number] ANSI-Medicare Part B [id number] ANSI-Commercial [id number] [id number]-[id number] ANSI-Commercial [id number] [id number]-[id number] ANSI-Commercial [id number] ANSI-Medicare Part B [id number] MEDICARE [id number] SP [id number] A MEDICARE - [facility] [id number] S [id number] [employer]OSS -O/P [id number] MEDICARE -O/P [id number] 18 [id number] [facility] SP MEDICARE B [place] [id number] SP [id number] MEDICARE/NATIONAL GOVT SVCS [id number] SP [id number] [employer] [place] [id number] S [id number] MEDICARE [id number] S [id number] Problems, Conditions, and Diagnoses Code Display Name Description Problem Type Effective Dates Data Source(s) E11.9 Type 2 diabetes mellitus without complic ations TYPE 2 DIABETES MELLITUS WITHOUT COMPLICATIONS Diagnosis 11/16/2020 11:51:[address] [facility] E03.9 Hypothyroidism, unspecified HYPOTHYROIDISM, UNSPECIFIE D Diagnosis 06/24/2020 12:29:[address] [facility] Z86.010 [id number] Hx of colonic polyp Problem 11/12/2020 12:00 :00 AM EDT eCW1 ([facility]) E11.9 Type 2 diabetes mellitus without complic ation Type 2 diabetes mellitus without complication, without long-term current use of insulin Problem 06/12/2020 12:00:00 AM EST eCW1 ([facility]) Surgeries/Procedures No Information Results ID Date Data Source [id number] 12/06/2020 11:34:00 AM EDT [facility] DISCHARGE SUMMARY, ADULTDischarge Diagno sis1. Altered mental status2. Hypertensive urgency3. Systolic heart failure4. VINAYAK (acute kidney injury)5. DM (diabetes mellitus)6. Physical deconditioning7. CAD (coronary artery disease)8. Hypothyroidism9. GERD (gastroesophageal reflux disease)10. OsteoarthritisPreceding HistoryPreceding history / Reason for admission:75 yrs old man with PMH of HTN, Diabetes mellitus, Dyslipidemia, CAD s/pstents in 2011 and 2014, Hypothyroidism, GERD come to hospital with EMS.Patient is poor historian and unable to provide much history. He wasbrought in by police with EMS from the [employer] parking lots stating thatpatient been confuse in his car for about 4 hours and don't know where hewas. As per ER physician, when patient intially presented there is nosweating or pale. Outside temperature at the time was 70F and it is notclear whether patient is in the car with window up or not. As perdaughter to ER physician, this kind of episode happen multiple times inthe past and sometime it was related with infection of some kind. Patientdenied any chest pain, palpitation, shortness of breath, nausea, vomiting, abdominal pain, diarrhoea, constipation, urinary problem. There is nofocal numbness or weakness.Blood test in ER, unremarkable CBC. CMP show creatinine of 2.07 and BUNof 18. Normal electrolytes level. UA negative for infection. 1st 2 setsof troponin is indeterminate and 3rd set is mildy positive at 3.03, 6hours after 1st set. Medical Nurse Dr. Sotelo from [facility] was consulted Perez physician and state that 3 sets of troponin is not much different fromeach other and he consi jyothi as it is flat and since patient has no chestpain, no cardiac or respiratory symptom and has normal EKG, no need totake any intervension or treatment. Troponin was repeated in morning andit is trending down. Repeat CMP show improvement in renal function aoygb0U of IV fluid. Patient still have mild confusion. Dr. Chandler from [facility] consulted by ER physician for possible transfer to have MRI in themorning to rule out stroke as our facility MRI machine is down, state that since patient has no neurologic problem, no focalnumbness or weakness, it is less likely stroke and MRI is not need ed.Hospitalist service called for observation overnight for unsafe dischargehome as patient live alone.Hospital Course: Patient was admitted for AMS likely in setting ofdehydration, VINAYAK and patient stated, he was very exhausted didn't sleepfor many days then he fall [facility] AAOx[facility] now, daughter was at bedside confirmed mental status athis baseline. He was also found to have VINAYAK treated with IV fluid andhypertensive urgency treated with home meds. He was also found to haveMild troponinemia: likely demend ischemia vs in setting of acute kidneyinjury, consulted new car salesperson in [facility] from ER suggested no intervensionneededm to trend troponin. Troponin trended down. Echocardiogram showedEF- 50%. Patient remained asymptomatic through out his stay.[place] refused to go to [place], he was living in his friend's garage anddidn't want to go back there.Daugther requested to send patient to assisted living facility, explainedto her, it will take couple of days to complete the paper work and PFSnot available on the weekend. His daugther yesterday reported, she willtake him home with her and will try to send in Assisted living facilityas outpatient. Patient has no complaint, doing well. Ambulating withoutany difficulty. Patient is medically stable for discharge, discharge planwas discussed with his daugther yesterday who agreed.HOSPITAL COURSE:DATE OF ADMISSION: 12/05/20DATE OF DISCHARGE: 12/06/20Admitted by Cecy Welch M.D. and has been in the hospital for 1days.CONDITION AT DISCHARGE:[Stable]CONSULTATIONS:[None]PROCEDURES:[X-ray, Chest x-ray, CT head]Vital SignsLast RecordedResult Date TimeO2 Delivery ROOM AIR 12/06 0800Pulse Ox 98 12/06 0800B/P 145/90 AH 12/06 0800Temp 98.0 12/06 0800Pulse 99 12/06 0800Resp 18 12/05 2317Weight on discharge Lb:208oz:0.LabsLaboratory Tests12/06 0707 2215 1631 1207ChemistryGlucometer (70 - 100 mg/dl) 209 162 181 203 194Physical ExamPhysical ExamGENERAL APPEARANCE: The patient is alert, comfortable, well nourished, in no acutedistress.HEENT: Head is normocephalic atraumatic. Pupils are equal. EOMI. N ormalsclerae.NECK: Supple, without meningismus. No JVD, no tracheal deviation.Symmetrical. No gross deformities.HEART: Regular rate and rhythm. No murmurs or gallops appreciated. No JVD.LUNGS: Symmetric expansion. No tracheal deviation. No retractions, noaccessory muscle use. No audible wheezing. No respiratory distress.ABDOMEN: Soft, nontender, nondistended. No guarding or rigidity.EXTREMITIES: Without cyanosis, clubbing or edema.NEUROLOGICAL: Cranial nerves II through XII are grossly intact.PSYCHIATRIC: Appropriate mood, appropriate affect, normal judgement, cooperative.Denies suicidal or homicidal ideations.SKIN: Clean, dry, intact. Good peripheral perfusion. No rashes grosslyvisible.Diet:Continue Regular Diet (low salt)Activity:As toleratedFollow- up InstructionsFollow-Up:W/ Primary Care Provider, in 48 to 72 hrsPrimary Care Provider:AYDIN Office #:[phone] ReconciledAcetaminophen With Codeine(Acetaminophen-Cod #4 Tablet) 1 EACH TABLET 2 TAB PO Q6H PRN #180, Ref0(Reported)Entered as Reported by Maryann Cross on 12/03/20 1445Last Action: No Recorded ActionAspirin(Adult Aspirin Regimen) 81 MG TABLET. 1 TAB PO DAILY, Ref 0(Reported)Entered as Reported by Roman Jarvis on 12/05/20 1524Last Action: No Recorded ActionClopidogrel Bisulfate(Clopidogrel) 75 MG TABLET 75 MG PO DAILY, Ref 0(Reported)Entered as Reported by Maryann Cross on 12/03/20 1442Last Action: No Recorded ActionCyclobenzaprine HCl(Flexeril) 10 MG TABLET 10 MG PO BID PRN, Ref 0(Reported)Entered as Reported by Maryann Cross on 12/03/20 1443Last Action: No Recorded ActionFenofibrate,Micronized(Fenofibrate) 200 MG CAPSULE 200 MG PO DAILY, Ref 0(Reported)Entered as Reported by Maryann Cross on 12/03/20 1440Last Action: No Recorded LtqnwdMrldkakysg36 MG TABLET 20 MG PO DAILY, Ref 0(Reported)Entered as Reported by Maryann Cross on 12/03/20 1442Last Action: No Recorded ActionLevothyroxine Sodium(Levothyroxine) 88 MCG CAPSULE 88 MG PO DAILY, Ref 0(Reported)Entered as Reported by Maryann Cross on 12/03/20 1435Last Action: No Recorded ActionLisinopril(Zestril) 20 MG TABLET 20 MG PO DAILY #30 TAB, Ref 0Prescribed by Cecy Johnson M.D. on 12/06/20Last Action: No Recorded DnisygHojxsvsfoe06 MG TABLET 40 MG PO 1700, Ref 0(Reported)Entered as Reported by Maryann Cross on 12/03/20 1434Last Action: No Recorded ActionMetformin HCl(Metformin HCl ER) 500 MG [id number] 500 MG PO 1700, Ref 0(Reported)Entered as Reported by Maryann Cross on 12/03/20 1435Last Action: No Recorded ActionMetoprolol Qnhruwwyv57 MG TAB.ER.24H 50 MG PO DAILY, Ref 0(Reported)Entered as Reported by Maryann Cross on 12/03/20 1440Last Action: No Recorded ActionPantoprazole Wvcsrw43 MG TABLET.DR 40 MG PO DAILY, Ref 0(Reported)Entered as Reported by Maryann Cross on 12/03/20 1436Last Action: No Recorded ActionPotassium Chloride(Klor-Con 10) 10 MEQ TABLET.ER 10 MEQ PO DAILY, Ref 0(Reported)Entered as Reported by Maryann Cross on 12/03/20 1434Last Action: No Recorded ActionPregabalin(Lyrica) 50 MG CAPSULE 50 MG PO BID, Ref 0(Reported)Entered as Reported by Maryann Cross on 12/03/20 1438Last Action: No Recorded ActionSucralfate(Carafate) 1 GM TABLET 1 G PO QID, Ref 0(Reported)Entered as Reported by Maryann Cross on 12/03/20 1433Last Action: No Recorded ActionTopiramate(Topamax) 50 MG TABLET 100 MG PO DAILY, Ref 0(Reported)Entered as Reported by Maryann Cross on 12/03/20 1441Last Action: No Recorded ActionVACCINE STATUSCurrent influenza vaccination?:NoWant influenza Vaccination?:PT DECLINES VACCINATIONCurrent pneumonia vaccination?:YesDate of Pneumococcal Vacc:UP TO DATEDischarge PlanFollow up with PCP in one weekPCP need to check BP meds and adjust if needed.Stopped HCTZ, continued lasix.Time spentGreater than 30 MinutesDictated on 12/06/20 1134 by Cecy Johnson M.D.Transcribed on 12/06/20 1134 by Cecy Johnson M.D.Sign by Cecy Johnson M.D. on 12/06/20 1149Sign by: Cecy Johnson M.D. Name Value Range Interpretation Code Description Data Michelle rce(s) Supporting Document(s) ID Date Data Source [id number] 12/03/2020 05:47:00 AM EDT [facility]. RIGHT HIP RADIOGRAPHFindings/Impression: There is a moderate degenerative osteophyte of theacetabular rim. No fracture or dislocation is noted. No acute softtissue abnormality.Dictated on 12/03/20 0547 by Say Hall M.D.Transcribed on 12/04/20 0810 by Sylwia Dominguez by Say Hall M.D. on 12/04/20 1121Sign by: Say Hall M.D. Name Value Range Interpretation Code Description Data Michelle rce(s) Supporting Document(s) ID Date Data Source [id number] 12/02/2020 09:04:00 AM EDT [facility]. CHEST - APFindings: The lungs are well- expanded with mild chronic changes. Thecardiac silhouette is normal in size and contour. There is evidence ofprior cardiac surgery. No acute osseous abnormality.IMPRESSION: NO ACUTE PULMONARY PROCESS.Dictated on 12/02/20903 by Say Hall M.D.Transcribed on 12/03/20 0849 by Sylwia Dominguez by Say Hall M.D. on 12/03/20 1048Sign by: Say Hall M.D. Name Value Range Interpretation Code Description Data Michelle rce(s) Supporting Document(s) ID Date Data Source [id number] 12/02/2020 09:04:00 AM EDT [facility]. CT HEAD WITHOUT CONTRASTThe cortical sul ci and ventricles are globally proportionate andprominent. There is no acute hemorrhage, infarct, mass-effect, ormidline shift.No acute osseous abnormality.The paranasal sinuses and mastoid air cells are clear. The visualizedorbits are normal.IMPRESSION:1. MODERATE AGE-RELATED ATROPHY.2. NO ACUTE INTRACRANIAL ABNORMALITY.Dictated on 12/02/20903 by Say Hall M.D.Transcribed on 12/03/20 0845 by Sylwia Dominguez by Say Hall M.D. on 12/03/20 1048Sign by: Say Hall M.D. Name Value Range Interpretation Code Description Data Michelle rce(s) Supporting Document(s) ID Date Data Source [id number] 12/03/2020 01:00:00 PM EDT [facility]. Patient name: DOROTHY BLAKEPatient ID: [id number]: [id number]: 75YWeight: 210 lbHeight: 68 inBSA: 2.14 f0Pjqjw#: [id number]/Outpt: InpatientEquipment: EPIQ CVxB/P: 140/76Referred by: Bjorn Dwyer MDSonographer: sepideh Nixting physician: Guerrero Rojas MDExamination date: 12/03/2020Indications / History: chf.Study quality:Technically difficult ----Diagnosis/CPT Code(s): Doppler Echo Complete (79198).Echo DimensionsAo Root Yasmin (2D): 3.9 cmLA Dimen (2D): 3.8 cmIVS(D) (2D): 1.04 cmLVPW(D) (2D): 1.05 cmLV(D) (2D): 4.56 cmLV(S) (2D): 3.62 cmLA Vol Idx (2D): 16.9 ml/m2Asc Ao Yasmin (2D): 3.7 cmLVOT (2D): 2.4 cmEF MOD Biplane (2D): 58 %FS (2D): 20.6 %Doppler-------* Aortic ValveLVOT Peak Gradient: 5 mmHg. LVOT Peak Velocity: 1.07 m/s. LVOT MeanGrad: 2 mmHg. LVOT VTI: 17.2 cm. LVOT/AV VTI: 1.03. AV Peak Velocity:1.14 m/s. AV Peak Gradient: 5 mmHg. AV Mean Gradient: 2 mmHg. AV Area(VMax): 4.24 cm2. AV VTI: 16.7 cm. AV Area (VTI): 4.66 cm2.* Mitral ValveMV Area (PHT): 3.73 cm2. MV Peak E Temo: 0.48 m/s. MV Peak A Temo: 0.67m/s. E/A: 0.7. MV PHT: 59 ms. MV Dec T: 203 ms.* Diastolic Functions / TDIE/Med E': 8.4. E/Lat E': 4. Peak Med E' Temo: 5.66 cm/s. Peak Lat E'Temo: 11.9 cm/s.* Tricuspid ValveRA Pressure: 5 mmHg.Findings--------Left VentricleLV chamber size is normal. LV wall thickness is mildly increased. LVsystolic function is mildly reduced. The estimated LV ejectionfraction is 50 % (abnormal). Left ventricular diastolic function isnon diagnostic. There is paradoxical septal motion suggestive of LBBB.Likely inferolateral hypokinesis.Right VentricleThere is normal right ventricular size, wall dimension, and systolicfunction. Right Ventricle is not well visualized.Left AtriumLA chamber size is normal.Right AtriumRA chamber size is normal.Aortic ValveThere is a trileaflet aortic valve. There is mild aortic valvesclerosis without stenosis.Mitral ValveThe mitral valve appears grossly normal. There is minimal mitralregurgitation.Tricuspid ValveThe tricuspid valve appears grossly normal. There is minimal tricuspidregurgitation. The estimated PA systolic pressure was not measured inthe absence of an adequate TR jet. Right atrial pressure is 5 mmHg.Pulmonary ValvePulmonic valve is not well visualized, but normal gradients wereobtained.PericardiumThere is no pericardial effusion present.AortaThe aortic root is mildly dilated. Aortic Root diameter is 3.9 cm. Theascending aorta is minimally dilated. Ascending Aortic Diameter: 3.7cm.VenousThe IVC is not dilated and collapses >50% with inspiration. (RAP -5mmHG).Impressions 1.Study quality: Technically difficult2.Mild LV systolic dysfunction. Estimated EF 50%3.Mild concentric LV hypertrophy4.The Aortic Root is mildly dilated5.There are no prior studies for comparison 1300 by Guerrero Rojas M.D., FACCTranscribed on 12/03/20 1300 by VIBENIGNOTAR TRANSSign by Guerrero Rojas M.D., [facility] on 12/03/20 1301Sign by: Guerrero Rojas M.D., [facility] Name Value Range Interpretation Code Description Data Michelle rce(s) Supporting Document(s) ID Date Data Source [id number] 12/02/2020 08:20:00 PM EDT [facility] Name Value Range Interpretation Code Description Data Michelle rce(s) Supporting Document(s) SARS-CoV-2 (COVID-19) RNA [Presence] in Respiratory specimen by MICHELLE with probe detection Not Detected [facility] This lab was ordered by [facility] and reported by . ID Date Data Source [id number] 11/19/2020 11:21:[address] [facility] Name Value Range Interpretation Code Description Data Michelle rce(s) Supporting Document(s) White Blood Count 3.5-10.5 Normal (applies to non-numeri c results) [facility] Red Blood Count 4.30-5.70 Normal (applies to non-numeric results) [facility] Hemoglobin 13.5-17.5 Normal (applies to non-numeric resul ts) [facility] Hematocrit 38.8-50.0 Normal (applies to non-numeric resul ts) [facility] Mean Corpuscular Volume 81.2-95.1 Normal (applies to non- numeric results) [facility] Mean Corpuscular Hgb 25.6-32.2 Normal (applies to non-num amena results) [facility] Mean Corpuscular Hgb Conc 32.0-36.0 Normal (applies to no n-numeric results) [facility] Red Cell Distribution Width 11.8-15.6 Normal (appli es to non-numeric results) [facility] Platelet Count 219 x10 3/uL 150-450 Normal (applies to non-numeric results) [facility] Mean Platelet Volume 9.4-12.4 Normal (applies to non-num amena results) [facility] Neutrophils% (Auto) 31.0-71.0 Normal (applies to non-nume huyen results) [facility] Lymphocytes% (Auto) 20.0-55.0 Normal (applies to non-nume huyen results) [facility] Monocytes% (Auto) 4.0-12.0 Normal (applies to non-numeri c results) [facility] Eosinophils% (Auto) 1.0-8.0 Normal (applies to non-nume huyen results) [facility] Basophils% (Auto) 0.0-2.0 Normal (applies to non-numeri c results) [facility] Immature Granulocytes% (Auto) 0.0-2.0 Normal (yani lies to non-numeric results) [facility] Neutrophils# (Auto) 1.50-6.20 Normal (applies to non-nume huyen results) [facility] Lymphocytes# (Auto) 1.20-4.00 Normal (applies to non-nume huyen results) [facility] Monocytes# (Auto) 0.00-0.90 Normal (applies to non-numeri c results) [facility] Eosinophils# (Auto) 0.00-0.50 Normal (applies to non-nume huyen results) [facility] Basophils# (Auto) 0.00-0.20 Normal (applies to non-numeri c results) [facility] Immature Granulocytes# (Auto) 0.00-7.00 No rmal (applies to non-numeric results) [facility] ID Date Data Source [id number] 11/19/2020 11:21:[address] [facility] Name Value Range Interpretation Code Description Data Michelle rce(s) Supporting Document(s) Sodium 142 mmol/L 136-145 Normal (applies to non-numeric resul ts) [facility] Potassium 3.5-5.1 Normal (applies to non-numeric resul ts) [facility] Chloride 104 mmol/L 98-107 Normal (applies to non-numeric resul ts) [facility] Carbon Dioxide CO2 21-32 Normal (applies to non-numer ic results) [facility] Anion Gap 5.0-16.0 Normal (applies to non-numeric resul ts) [facility] BUN 18 mg/dL 7-18 Normal (applies to non-numeric results) [facility] Creatinine,Serum 0.8-1.5 Normal (applies to non-numeric results) [facility] GFR 52 mL/min >60 Below low normal [facility] spital Glucose Level 219 mg/dL 60-99 Above high normal [facility] Reference range is only applicable when patient is fasting Note the following drug interference: Sulfasalazine Sulfapyridine Can see falsely depressed Can see falsely elevated result with up to 17% results with up to 11% decrease in measurement increase in measurement Recommend patients be collected for this test prior to administration of either drug. Calcium 8.5-10.1 Normal (applies to non-numeric resul ts) [facility] Bilirubin,Total 0.1-1.9 Normal (applies to non-numeric results) [facility] SGOT(AST) 57 U/L 15-37 Above high normal [facility] ospital Note the following drug interference: Sulfasalazine Sulfapyridine Can see falsely depressed Can see falsely elevated result with up to 10% results with up to 10% decrease in measurement increase in measurement Recommend patients be collected for this test prior to administration of either drug. SGPT(ALT) 39 U/L 12-78 Normal (applies to non-numeric resul ts) [facility] Note the following drug interference: Sulfasalazine Sulfapyridine Can see falsely depressed Can see falsely elevated result with up to 29% results with up to 10% decrease in measurement increase in measurement Recommend patients be collected for this test prior to administration of either drug. Alkaline Phosphatase 71 U/L 38-126 Normal (applies to non-num amena results) [facility] can increase Alkaline Phosp le vels up to 2 times the normal adult value. Normal values for children and adolescents are 2 to 3 times the normal adult value. Total Protein 6.0-8.2 Normal (applies to non-numeric re sults) [facility] Albumin Level 3.4-5.0 Normal (applies to non-numeric re sults) [facility] ID Date Data Source [id number] 11/19/2020 11:21:[address] [facility] Name Value Range Interpretation Code Description Data Michelle rce(s) Supporting Document(s) Magnesium 1.8-2.4 Normal (applies to non-numeric resul ts) [facility] ID Date Data Source [id number] 11/19/2020 11:21:[address] [facility] Name Value Range Interpretation Code Description Data Michelle rce(s) Supporting Document(s) Triglycerides 278 mg/dL <150 Above high normal [facility] Cholesterol 188 mg/dL 100-200 Normal (applies to non-numeric resu lts) [facility] LDL Cholesterol Calculated 106 0-130 Normal (applies to n on-numeric results) [facility] HDL Cholesterol 26 mg/dL 40-60 Below low normal [facility] Cholesterol/HDL Ratio 3.6-6.[address] [facility] ID Date Data Source [id number] 11/19/2020 11:21:[address] [facility] Name Value Range Interpretation Code Description Data Michelle rce(s) Supporting Document(s) Thyroid Stimulate Hormone TSH 0.358-3.[address] [facility] ID Date Data Source [id number] 11/19/2020 11:21:00 AM EDT [facility] Value Range Interpretation Code Description Data Michelle rce(s) Supporting Document(s) Hemoglobin A1c Above high normal [facility] Reference Range Normal: < 5.7% Pr ediabetes: 5.7-6.4% Diabetes: > 6.5% Estimated Avg Glucose 189 mg/dL 126-240 Normal (applies to non-numeric results) [facility] ID Date Data Source [id number] 06/24/2020 01:35:00 PM EDT [facility] Value Range Interpretation Code Description Data Michelle rce(s) Supporting Document(s) Hemoglobin A1c Above high normal [facility] Reference Range Normal: < 5.7% Pr ediabetes: 5.7-6.4% Diabetes: > 6.5% Estimated Avg Glucose 169 mg/dL 126-240 Normal (applies to non-numeric results) [facility] ID Date Data Source [id number] 06/24/2020 01:29:[address] [facility] Name Value Range Interpretation Code Description Data Michelle rce(s) Supporting Document(s) Thyroid Stimulate Hormone TSH 0.358-3.74 No rmal (applies to non-numeric results) [facility] ID Date Data Source [id number] 06/24/2020 01:29:[address] [facility] Name Value Range Interpretation Code Description Data Michelle rce(s) Supporting Document(s) Sodium 139 mmol/L 136-145 Normal (applies to non-numeric resul ts) [facility] Potassium 3.5-5.1 Normal (applies to non-numeric resul ts) [facility] Chloride 101 mmol/L 98-107 Normal (applies to non-numeric resul ts) [facility] Carbon Dioxide CO2 21-32 Normal (applies to non-numer ic results) [facility] Anion Gap 5.0-16.0 Normal (applies to non-numeric resul ts) [facility] BUN 28 mg/dL 7-18 Above high normal [facility] ospital Creatinine,Serum 0.8-1.5 Above high normal [facility] GFR 45 mL/min >60 Below low normal [facility] spital Glucose Level 157 mg/dL 60-99 Above high normal [facility] Reference range is only applicable when patient is fasting Note the following drug interference: Sulfasalazine Sulfapyridine Can see falsely depressed Can see falsely elevated result with up to 17% results with up to 11% decrease in measurement increase in measurement Recommend patients be collected for this test prior to administration of either drug. Calcium 8.5-10.1 Normal (applies to non-numeric resul ts) [facility] Bilirubin,Total 0.1-1.9 Normal (applies to non-numeric results) [facility] SGOT(AST) 31 U/L 15-37 Normal (applies to non-numeric resul ts) [facility] Note the following drug interference: Sulfasalazine Sulfapyridine Can see falsely depressed Can see falsely elevated result with up to 10% results with up to 10% decrease in measurement increase in measurement Recommend patients be collected for this test prior to administration of either drug. SGPT(ALT) 34 U/L 12-78 Normal (applies to non-numeric resul ts) [facility] Note the following drug interference: Sulfasalazine Sulfapyridine Can see falsely depressed Can see falsely elevated result with up to 29% results with up to 10% decrease in measurement increase in measurement Recommend patients be collected for this test prior to administration of either drug. Alkaline Phosphatase 60 U/L 38-126 Normal (applies to non-num amena results) [facility] can increase Alkaline Phosp le vels up to 2 times the normal adult value. Normal values for children and adolescents are 2 to 3 times the normal adult value. Total Protein 6.0-8.2 Normal (applies to non-numeric re sults) [facility] Albumin Level 3.4-5.0 Normal (applies to non-numeric re sults) [facility] ID Date Data Source [id number] 06/24/2020 01:00:[address] [facility] Name Value Range Interpretation Code Description Data Michelle rce(s) Supporting Document(s) White Blood Count 3.5-10.5 Normal (applies to non-numeri c results) [facility] Red Blood Count 4.30-5.70 Normal (applies to non-numeric results) [facility] Hemoglobin 13.5-17.5 Normal (applies to non-numeric resul ts) [facility] Hematocrit 38.8-50.0 Normal (applies to non-numeric resul ts) [facility] Mean Corpuscular Volume 81.2-95.1 Normal (applies to non- numeric results) [facility] Mean Corpuscular Hgb 25.6-32.2 Normal (applies to non-num amena results) [facility] Mean Corpuscular Hgb Conc 32.0-36.0 Normal (applies to no n-numeric results) [facility] Red Cell Distribution Width 11.8-15.6 Normal (appli es to non-numeric results) [facility] Platelet Count 177 x10 3/uL 150-450 Normal (applies to non-numeric results) [facility] Mean Platelet Volume 9.4-12.4 Normal (applies to non-num amena results) [facility] Neutrophils% (Auto) 31.0-71.0 Normal (applies to non-nume huyen results) [facility] Lymphocytes% (Auto) 20.0-55.0 Normal (applies to non-nume huyen results) [facility] Monocytes% (Auto) 4.0-12.0 Normal (applies to non-numeri c results) [facility] Eosinophils% (Auto) 1.0-8.0 Normal (applies to non-nume huyen results) [facility] Basophils% (Auto) 0.0-2.0 Normal (applies to non-numeri c results) [facility] Immature Granulocytes% (Auto) 0.0-2.0 Normal (yani lies to non-numeric results) [facility] Neutrophils# (Auto) 1.50-6.20 Normal (applies to non-nume huyen results) [facility] Lymphocytes# (Auto) 1.20-4.00 Normal (applies to non-nume huyen results) [facility] Monocytes# (Auto) 0.00-0.90 Normal (applies to non-numeri c results) [facility] Eosinophils# (Auto) 0.00-0.50 Normal (applies to non-nume huyen results) [facility] Basophils# (Auto) 0.00-0.20 Normal (applies to non-numeri c results) [facility] Immature Granulocytes# (Auto) 0.00-7.00 No rmal (applies to non-numeric results) [facility] Procedure Social History Code Duration Value Status Description Data Source(s ) Smoking 01/04/2021 12:00:00 AM EDT Current Smoker completed Curre nt Smoker eCW1 ([facility]) Smoking 11/12/2020 12:00:00 AM EDT Current Smoker completed Curre nt Smoker eCW1 ([facility]) Smoking 11/12/2020 12:00:00 AM EDT Current Smoker completed Curre nt Smoker eCW1 ([facility]) Smoking 11/12/2020 12:00:00 AM EDT Current Smoker completed Curre nt Smoker eCW1 ([facility]) Smoking 11/12/2020 12:00:00 AM EDT Current Smoker completed Curre nt Smoker eCW1 ([facility]) Smoking 11/12/2020 12:00:00 AM EDT Current Smoker completed Curre nt Smoker eCW1 ([facility]) Smoking 06/12/2020 12:00:00 AM EST Current Smoker completed Curre nt Smoker eCW1 ([facility]) Smoking 06/12/2020 12:00:00 AM EST Current Smoker completed Curre nt Smoker eCW1 ([facility]) Smoking 06/12/2020 12:00:00 AM EST Current Smoker completed Curre nt Smoker eCW1 ([facility]) Smoking 06/12/2020 12:00:00 AM EST Current Smoker completed Curre nt Smoker eCW1 ([facility]) Smoking 06/12/2020 12:00:00 AM EST Current Smoker completed Curre nt Smoker eCW1 ([facility]) Smoking 06/12/2020 12:00:00 AM EST Current Smoker completed Curre nt Smoker eCW1 ([facility]) Vital Signs ID Date Data Source [id number] Name Value Range Interpretation Code Description Data Source(s) Body weight 209.4 [lb_av] 209.4 [lb_av] eCW1 ([facility]) Body weight 94.98 kg 94.98 kg W1 ([facility]) Body height 64 [in_i] 64 [in_i] eCW1 ([facility]) Body mass index (BMI) [Ratio] 35.94 kg/m2 35.94 kg/m2 W1 ([facility]) Heart rate 83 /min 83 /min eCW1 ([facility]) Respiratory rate 18 /min 18 /min eCW1 ([facility]) Body temperature 97.1 [degF] 97.1 [degF] eCW1 ( [facility]) Systolic blood pressure 136 mm[Hg] 136 mm[Hg] e CW1 ([facility]) Diastolic blood pressure 89 mm[Hg] 89 mm[Hg] eCW1 ([facility]) Body weight 211.4 [lb_av] 211.4 [lb_av] eCW1 ([facility]) Body weight 95.89 kg 95.89 kg eCW1 ([facility]) Body height 64 [in_i] 64 [in_i] eCW1 ([facility]) Body mass index (BMI) [Ratio] 36.28 kg/m2 36.28 kg/m2 eCW1 ([facility]) Heart rate 77 /min 77 /min eCW1 ([facility]) Respiratory rate 20 /min 20 /min eCW1 ([facility]) Body temperature 97.2 [degF] 97.2 [degF] eCW1 ( [facility]) Systolic blood pressure 121 mm[Hg] 121 mm[Hg] e CW1 ([facility]) Diastolic blood pressure 80 mm[Hg] 80 mm[Hg] eCW1 ([facility]) Body weight 217 [lb_av] 217 [lb_av] eCW1 ([facility]) Body height 64 [in_i] 64 [in_i] eCW1 ([facility]) Body mass index (BMI) [Ratio] 37.24 kg/m2 37.24 kg/m2 eCW1 ([facility]) Heart rate 66 /min 66 /min eCW1 ([facility]) Respiratory rate 18 /min 18 /min eCW1 ([facility]) Body temperature 97.7 [degF] 97.7 [degF] eCW1 ( [facility]) Systolic blood pressure 128 mm[Hg] 128 mm[Hg] e CW1 ([facility]) Diastolic blood pressure 78 mm[Hg] 78 mm[Hg] eCW1 ([facility]) Patient Treatment Plan of Care Planned Activity Planned Date Details Description Data Source (s) tramadol hydrochloride 50 MG Oral Tablet 01/04/2021 12:00:00 AM EDT eCW1 ([facility]) Acetaminophen 300 MG / Codeine Phosphate 60 MG Oral Ta blet 12/08/2020 12:00:00 AM EDT eCW1 ([facility]) Acetaminophen 300 MG / Codeine Phosphate 60 MG Oral Ta blet 12/08/2020 12:00:00 AM EDT eCW1 ([facility]) Lisinopril 20 MG Oral Tablet [Zestril] 12/06/2020 12:00:00 AM EDT [facility] 24 HR Metformin hydrochloride 500 MG Extended Release Oral Tablet 11/17/2020 12:00:00 AM EDT eCW1 ([facility]) 24 HR Metformin hydrochloride 500 MG Extended Release Oral Tablet 11/17/2020 12:00:00 AM EDT eCW1 ([facility]) Hydrocortisone butyrate 1 MG/ML Topical Solution 11/12/2020 12:00:0 0 AM EDT eCW1 ([facility]) Hydrocortisone butyrate 1 MG/ML Topical Solution 11/12/2020 12:00:0 0 AM EDT eCW1 ([facility]) Hydrocortisone butyrate 1 MG/ML Topical Solution 11/12/2020 12:00:0 0 AM EDT eCW1 ([facility]) Acetaminophen 300 MG / Codeine Phosphate 60 MG Oral Ta blet 11/03/2020 12:00:00 AM EDT eCW1 ([facility]) Hydrochlorothiazide 12.5 MG / Lisinopril 20 MG Oral Tablet [facility].
--- NOTE | 2021-02-11 13:06 | REP ---
INDICATION: Altered Mental Status. COMPARISON: MRI 10/07/2011. TECHNIQUE: Axial soft tissue and bone windows with coronal reconstructions provided FINDINGS: The lateral ventricles are symmetric mildly dilated and in proportion to the diffuse cerebral atrophy, age-appropriate. The atrophy has progressed since the study 9 years ago. Third and 4th ventricles are proportionate. There is no lacunar infarct in the right thalamus. Basal ganglia otherwise unremarkable. Periventricular, centrum semiovale and subcortical white matter tracts show heterogeneous low-attenuation a suggesting chronic small vessel ischemic disease. Left cerebellum also shows a focal zone of encephalomalacia representing small infarct which was seen on the previous MR is a subacute finding. There is no vascular territory infarct, intracranial hemorrhage, mass or mass effect. Posterior fossa shows no bleed with only minor cerebellar atrophy. Basal cisterns are intact. Fullness and hyperdensity in the middle cranial fossa near the carotid siphon left greater than right may reflect aneurysmal dilatation of the carotid artery in the location. There is no subarachnoid or subdural bleed. Mastoids, sinuses, skull base and calvarium otherwise unremarkable. 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 The development of ventriculomegaly in proportion to cerebral atrophy, progressive since the study 9 years ago. Focal increased density in the middle cranial fossa region near the carotid siphons, I could not exclude aneurysm of the internal carotid on the left. CTA or MRA may be helpful. No acute infarct, hemorrhage, mass or mass effect. <Electronically signed by Chuck Owen > 02/11/21 [id number]
--- OUTSIDE RECORDS SUMMARY | 2021-02-11 13:30 | CCD ---
Author Author [facility] Organization [facility] Address Unknown Phone Unavailable Care Team Providers Care Applied Marine Physics Professor Name Role Phone Robbie ESCOTO DO Unavailable Unavailable HUIZENGA, Robbie ZABALA DO [...] is protected by Article 27-F of the [facility] Public Health law. If you continue you may have access to information: Regarding HIV / AIDS; Provided by facilities licensed or operated by the [facility] Office of Mental Health; or Provided by the [facility] Office for People With Developmental Disabilities. If such information is present, then the following [facility] mandated warning applies: This information has been [...] law may result in a fine or residential sentence or both. A general authorization for the release of medical or other information is NOT sufficient authorization for further disc losure. Allergies and Adverse Reactions Type Description Substance Reaction Status Data Source(s ) Propensity to adverse reactions Propensity to adverse reacti ons No Known Drug Intolerances [facility] Family History Family Member Name Family Member Gender Family Member Status Date o f Status Description Data Source(s) Unknown Male Problem MEDENT ([facility] ) Encounters Encounter Providers Location Date Indications Data Source(s ) [place] [address] [facility] [place] [address] 01/04/2021 12:00:00 AM EDT eCW1 ([facility]) Unknown [address] [facility] [place] [address] 12/11/2020 12:00:00 AM EDT eCW1 ([facility]) [place] [address] [facility] [place] [address] 12/09/2020 12:00:00 AM EDT eCW1 ([facility]) Unknown [address] [facility] [place] [address] 12/08/2020 12:00:00 AM EDT eCW1 ([facility]) Inpatient Attender: Cecy Johnson MDAdmitter: Cecy dennison MD SURG-ICU 12/05/2020 01:51:00 PM EDT - 12/06/2020 01:20:00 PM EDT [facility] Patient discharged. Inpatient Attender: Cecy Johnson MDA ttender: Cristo Alvarez MDAdmitter: Cecy Johnson MD SURG-ICU 12/05/2020 01:51:00 PM EDT - 12/03/2020 11:43:00 AM EDT [facility] V Attender: Cecy Johnson MDAdmitter: Cecy dennison MD SURG-ICU 12/03/2020 11:15:00 AM EDT [facility] Patient admitted. Emergency Attender: Cristo Alvarez MD SURG-ER 12/02/2020 08:21:00 PM EDT [facility] [place]. [place] [address] [facility] [address] 11/17/2020 12:00:00 AM EDT eCW1 ([facility]) Outpatient Attender: SAGRARIO ESCOTO [facility] 11/01 11:51:00 AM EDT - 11/16/2020 11:52:00 AM EDT E119 I129 K219 E039 [facility] E119 I129 K219 E039 Patient discharged. Outpatient [address] [facility] [address] 11/12/2020 12:00:00 AM EDT eCW1 ([facility]) Unknown [address] [facility] [address] 11/03/2020 12:00:00 AM EDT eCW1 ([facility]) [place] [address] [facility] [address] 09/30/2020 12:00:00 AM EDT eCW1 ([facility]) [place] [address] [facility] [address] 08/28/2020 12:00:00 AM EDT eCW1 ([facility]) Unknown [address] [facility] [address] 07/02/2020 12:00:00 AM EDT eCW1 ([facility]) Outpatient Attender: SAGRARIO ESCOTO [facility] 06/02 12:29:00 PM EDT - 06/24/2020 12:30:00 PM EDT E039 E119 I129 [facility] E039 E119 I129 Patient discharged. Unknown [address] [facility] [address] 06/15/2020 12:00:00 AM EDT eCW1 ([facility]) Outpatient [address] [facility] [place] [address] 06/12/2020 12:00:00 AM EST eCW1 ([facility]) [place] [address] [facility] [address] 06/01/2020 12:00:00 AM EST eCW1 ([facility]) [place] [address] [facility] [address] 05/29/2020 12:00:00 AM EST eCW1 ([facility]) Unknown [address] [facility] [address] 05/28/2020 12:00:00 AM EST eCW1 ([facility]) Unknown [address] [facility] [address] 05/20/2020 12:00:00 AM EST eCW1 ([facility]) Unknown [address] [facility] [address] 04/30/2020 12:00:00 AM EST eCW1 ([facility]) Unknown [address] [facility] [address] 04/21/2020 12:00:00 AM EST eCW1 ([facility]) Unknown [address] [facility] [address] 04/01/2020 12:00:00 AM EST eCW1 ([facility]) Unknown [address] [facility] [address] 03/30/2020 12:00:00 AM EST eCW1 ([facility]) Unknown [address] [facility] [address] 03/30/2020 12:00:00 AM EST eCW1 ([facility]) Unknown [address] [facility] [address] 03/17/2020 12:00:00 AM EST eCW1 ([facility]) Unknown [address] [facility] [address] 03/05/2020 12:00:00 AM EST eCW1 ([facility]) Unknown [address] [facility] [address] 02/03/2020 12:00:00 AM EST eCW1 ([facility]) Unknown [address] [facility] [address] 01/02/2020 12:00:00 AM EDT eCW1 ([facility]) [facility] [address] [facility] [address] 12/16/2019 12:00:00 AM EDT eCW1 ([facility]) Medications Medication Brand Name Start Date Product Form Dose Route Admi nistrative Instructions Pharmacy Instructions Status Indications Reaction Description Data Source(s) 50 mg 01/04/2021 12:00:00 AM EDT tablet 120 TAKE ONE TABLET BY MOUTH FOUR TIMES A DAY NEEDED MAXIMUM DAILY DOSE = 4 TAKE ONE TABLET BY MOUTH FOUR TIMES A DAY NEEDED MAXIMUM DAILY DOSE = 4 SOLD: 01/04/2021 [facility] tramadol hydrochloride 50 MG Oral Tablet traMADol HCl 50 MG traMADol HCl 50 MG 01/04/2021 12:00:00 AM EDT 1.0 {tablet_as_needed} active traMADol HCl 50 MG [facility] 50 mg 12/28/2020 12:00:00 AM EDT tablet extended release 24 hr 90 TAKE ONE TABLET BY MOUTH EVERY DAY TAKE ONE TABLET BY MOUTH EVERY DAY SOLD: 01/01/2021 [facility] Acetaminophen 300 MG / Codeine Phosphate 60 MG Oral Tablet Acetaminophen-Codeine 300-60 MG Acetaminophen-Codeine 300-60 MG 12/08/2020 12:00:00 AM EDT 2.0 {tablet_as_needed} active Acetaminophen -Codeine 300-60 MG [facility]) Acetaminophen 300 MG / Codeine Phosphate 60 MG Oral Ta blet 300-60 mg ACETAMINOPHEN WITH CODEINE 12/08/2020 12:00:00 AM EDT tablet 180 TAKE TWO TABLETS BY MOUTH EVERY 8 HOURS NEEDED MAXIMUM DAILY DOSE = 6 TAKE TWO TABLETS BY MOUTH EVERY 8 HOURS NEEDED MAXIMUM DAILY DOSE = 6 SOLD: 12/09/2020 [facility] Acetaminophen 300 MG / Codeine Phosphate 60 MG Oral Tablet Acetaminophen-Codeine 300-60 MG Acetaminophen-Codeine 300-60 MG 12/08/2020 12:00:00 AM EDT 2.0 {tablet_as_needed} active Acetaminophen -Codeine 300-60 MG [facility]CW1 [facility]) Acetaminophen 300 MG / Codeine Phosphate 60 MG Oral Tablet Acetaminophen-Codeine 300-60 MG Acetaminophen-Codeine 300-60 MG 12/08/2020 12:00:00 AM EDT 2.0 {tablet_as_needed} active Acetaminophen -Codeine 300-60 MG [facility]CW1 [facility]) Acetaminophen 300 MG / Codeine Phosphate 60 MG Oral Tablet Acetaminophen-Codeine 300-60 MG Acetaminophen-Codeine 300-60 MG 12/08/2020 12:00:00 AM EDT 2.0 {tablet_as_needed} active Acetaminophen -Codeine 300-60 MG [facility]CW1 [facility]) Acetaminophen 300 MG / Codeine Phosphate 60 MG Oral Tablet Acetaminophen-Codeine 300-60 MG Acetaminophen-Codeine 300-60 MG 12/08/2020 12:00:00 AM EDT 2.0 {tablet_as_needed} active Acetaminophen -Codeine 300-60 MG eCW1 ([facility]) Acetaminophen 300 MG / Codeine Phosphate 60 MG Oral Tablet Acetaminophen-Codeine 300-60 MG Acetaminophen-Codeine 300-60 MG 12/08/2020 12:00:00 AM EDT 2.0 {tablet_as_needed} active Acetaminophen -Codeine 300-60 MG [facility]CW1 [facility]) 20 mg 12/06/2020 12:00:00 AM EDT tablet 30 TAKE ONE TABLET BY MOUTH EVERY DAY TAKE ONE TABLET BY MOUTH EVERY DAY SOLD: 12/07/2020 [facility] Lisinopril 20 MG Oral Tablet [Zestril] Lisinopril (Zes tril) 20 MG TABLET Lisinopril (Zestril) 20 MG TABLET 12/06/2020 12:00:00 AM EDT 20 completed Daily [facility] [place]. 24 HR Metformin hydrochloride 500 MG Ext ended Release Oral Tablet metFORMIN HCl ER 500 MG metFORMIN HCl ER 500 MG 11/17/2020 12:00:00 AM EDT 1.0 {tablet_with_evening_meal} active metFO RMIN HCl ER 500 MG [facility]CW1 [facility]) 24 HR Metformin hydrochloride 500 MG Ext ended Release Oral Tablet metFORMIN HCl ER 500 MG metFORMIN HCl ER 500 MG 11/17/2020 12:00:00 AM EDT 1.0 {tablet_with_evening_meal} active metFO RMIN HCl ER 500 MG eCW1 [facility]) 24 HR Metformin hydrochloride 500 MG Ext ended Release Oral Tablet metFORMIN HCl ER 500 MG metFORMIN HCl ER 500 MG 11/17/2020 12:00:00 AM EDT 1.0 {tablet_with_evening_meal} active metFO RMIN HCl ER 500 MG [facility]CW1 [facility]) 88 mcg 11/17/2020 12:00:00 AM EDT tablet [...] metFO RMIN HCl ER 500 MG eCW1 ([facility]) 24 HR Metformin hydrochloride 500 MG Ext ended Release Oral Tablet metFORMIN HCl ER 500 MG metFORMIN HCl ER 500 MG 11/17/2020 12:00:00 AM EDT 1.0 {tablet_with_evening_meal} active metFO RMIN HCl ER 500 MG eCW1 [facility]) 24 HR Metformin hydrochloride 500 MG Extended [...] TABLET BY MOUTH EVERY DAY SOLD: 11/16/2020 [facility] Hydrocortisone butyrate 1 MG/ML Topical Solution [place] cortisone Butyrate 0.1 % Hydrocortisone Butyrate 0.1 % 11/12/2020 12:00:00 AM EDT 1.0 {application_to_scalp} active Hydrocort isone Butyrate 0.1 % [facility]CW1 ([facility]) Hydrocortisone butyrate 1 MG/ML Topical Solution [place] cortisone Butyrate 0.1 % Hydrocortisone Butyrate 0.1 % 11/12/2020 12:00:00 AM EDT 1.0 {application_to_scalp} active Hydrocort isone Butyrate 0.1 % eCW1 ([facility]) Hydrocortisone butyrate 1 MG/ML Topical Solution [place] cortisone Butyrate 0.1 % Hydrocortisone Butyrate 0.1 % 11/12/2020 12:00:00 AM EDT 1.0 {application_to_scalp} active Hydrocort isone Butyrate 0.1 % eCW1 ([facility]) Hydrocortisone butyrate 1 MG/ML Topical Solution [place] cortisone Butyrate 0.1 % Hydrocortisone Butyrate 0.1 % 11/12/2020 12:00:00 AM EDT 1.0 {application_to_scalp} active Hydrocort isone Butyrate 0.1 % eCW1 ([facility]) Hydrocortisone butyrate 1 MG/ML Topical Solution [place] cortisone Butyrate 0.1 % Hydrocortisone Butyrate 0.1 % 11/12/2020 12:00:00 AM EDT 1.0 {application_to_scalp} active Hydrocort isone Butyrate 0.1 % [facility]CW1 [facility]) Acetaminophen 300 MG / Codeine Phosphate 60 MG Oral Tablet Acetaminophen-Codeine 300-60 MG Acetaminophen-Codeine 300-60 MG 11/03/2020 12:00:00 AM EDT 2.0 {tablet_as_needed} active Acetaminophen -Codeine 300-60 MG [facility]CW1 ([facility]) Acetaminophen 300 MG / Codeine Phosphate 60 [...] {tablet_as_needed} active Acetaminophen -Codeine 300-60 MG eCW1 ([facility]) Acetaminophen 300 MG / Codeine Phosphate 60 MG Oral Tablet Acetaminophen-Codeine 300-60 MG Acetaminophen-Codeine 300-60 MG 11/03/2020 12:00:00 AM EDT 2.0 {tablet_as_needed} active Acetaminophen -Codeine 300-[address] [facility] Acetaminophen 300 MG / Codeine Phosphate 60 [...] ON AN EMPTY STOMACH SOLD: 08/24/2020 [facility] 1 gram 05/29/2020 12:00:00 AM EST tablet 360 TAKE ONE TABLET BY MOUTH FOUR TIMES A DAY ON AN EMPTY STOMACH TAKE ONE TABLET BY MOUTH FOUR TIMES A DA Y ON AN EMPTY STOMACH SOLD: 05/29/2020 [facility] 1 gram 05/29/2020 12:00:00 AM EST [...] EVERY DAY WITH EVENING MEAL SOLD: 05/21/2020 [facility] Lovastatin 40 MG Oral Tablet LOVASTATIN 05/21/2020 12:00:00 AM EST tab let 90 TAKE ONE TABLET BY MOUTH EVERY DAY WITH EVENING MEAL TAKE ONE TABLET BY MOUTH EVERY DAY WITH EVENING MEAL SOLD: 08/23/2020 [facility] Lovastatin 40 MG Oral Tablet LOVASTATIN 05/21/2020 12:00:00 AM EST tab let 90 TAKE ONE TABLET BY MOUTH EVERY DAY WITH EVENING MEAL TAKE ONE TABLET BY MOUTH EVERY DAY WITH EVENING MEAL SOLD: 11/19/2020 [facility] 300-60 mg 05/04/2020 12:00:00 AM EST [...] MA XIMUM DAILY DOSE = 2 SOLD: 05/01/2020 [facility] [...] TABLET BY MOUTH EVERY DAY SOLD: 10/01/2020 [facility] 20-12.5 mg 03/30/2020 12:00:00 AM EST tablet 90 TAKE ONE TABLET BY MOUTH EVERY DAY TAKE ONE TABLET BY MOUTH EVERY DAY SOLD: 10/01/2020 [facility] 300-60 mg 03/05/2020 12:00:00 AM EST tablet 180 TAKE TWO TABLETS BY MOUTH EVERY 8 HOURS NEEDED MAXIMUM DAILY DOSE = 6 TAKE TWO TABLETS BY MOUTH EVERY 8 HOURS NEEDED MAXIMUM DAILY DOSE = 6 SOLD: 03/07/2020 [facility] pantoprazole 40 MG Delayed Release Oral Tablet PANTOPRAZOLE SODIUM 03/03/2020 12:00:00 AM EST tablet,delayed release (DR/EC) 90 T SHANKAR ONE TABLET BY MOUTH EVERY DAY TAKE ONE TABLET BY MOUTH EVERY DAY SOLD: 05/31/2020 [facility] pantoprazole 40 MG Delayed Release Oral Tablet PANTOPRAZOLE SODIUM 03/03/2020 12:00:00 AM EST tablet,delayed release (DR/EC) 90 T SHANKAR ONE TABLET BY MOUTH EVERY DAY TAKE ONE TABLET BY MOUTH EVERY DAY SOLD: 08/29/2020 [facility] pantoprazole 40 MG Delayed Release Oral Tablet PANTOPRAZOLE SODIUM 03/03/2020 12:00:00 AM EST tablet,delayed release (DR/EC) 90 T SHANKAR ONE TABLET BY MOUTH EVERY DAY TAKE ONE TABLET BY MOUTH EVERY DAY SOLD: 03/03/2020 [facility] Potassium Chloride 10 MEQ Extended [...] TABLET BY MOUTH EVERY DAY SOLD: 11/19/2020 [facility] Potassium Chloride 10 MEQ Extended [...] MOUTH TWICE A DAY NEEDED SOLD: 06/17/2020 [facility] Cyclobenzaprine hydrochloride 10 MG Oral Tablet [...] 1 Tab Oral 1 comple jani Daily [facility] Insurance Providers Payer name Policy type / Coverage type Policy ID Covered green party ID Covered green party's relationship to corona Policy [place] Plan Information BCBS [place] [id number] SP [id number] MEDICARE [id number] Mag[place] [id number] U79 Medicare [place] Medicare Primary [id number] Self [id number] [facility] Part B [id number] Self [id number] EXCELLUS BCBS [id number] Magui YLS [id number] MEDICARE [id number] SP [id number] [id number] [facility] [id number] SP [id number] BCBS [place] [id number] MEDICARE [id number] SP [id number] [id number] [place]LL[place] [id number] Retired [id number] MEDICARE [id number] Retired [id number] U79 BCBS [place] [id number] SP [id number] [facility] [id number] SP [id number] [place]LL[place] [id number] S [id number] [place]LL[place] [id number] Retired [id number] ANSI-Commercial [id number] ANSI-Commercial [id number] ANS-Medicare Part B [id number] ANSI-Commercial [id number] ANSI-Commercial [id number] ANSI-Medicare Part B [id number] ANSI-Commercial [id number]-2hv9-[id number] ANSI-Medicare Part B [id number] ANSI-Commercial [id number] ANSI-Commercial [id number]-j257-[id number]-h274-[id number] ANSI-Medicare Part B [id number] ANSI-Commercial [id number]-[id number] [id number]-k14j-[id number] ANSI-Medicare Part B [id number] ANSI-Commercial [id number] gs37p6bo-5039-7sa6-13am-[id number] ANSI-Commercial [id number]-[id number] [id number]-c0vb-ts4cnr52p000 ANSI-Commercial a862et9t-[id number] t009bi2q-1t2d-6103-l6ki-h2xi4xn65142 [facility] [id number] ANSI-Commercial g3nn6me3-85n5-2793-p6hi-[id number]-s1sm-[id number] ANSI-Commercial 56psrp70-75b9-8p92-7491-r4303n151jw4 24qoek03-84u3-6v45-9686-d9404n901fq0 ANSI-Commercial k8dtn3th-001n-7z31-5r1t-47644s89irwn c9jvx4ha-319u-8r86-6v6s-11202t64wvfk ANSI-Medicare Part B [id number] ANSI-Medicare Part B [id number] ANSI-Commercial [id number]-2zpy-gmxx-44r94gexkhy8 58017if2-3zwm-3qww-xpyg-04c49exilrr8 ANSI-Commercial 5dg06tmd-430w-6ma2-5219-5qz2g7i07p9d 4qi20uud-726i-2ka6-3929-8uz6l6b08t1z ANSI-Commercial k53t3m74-p8bn-86m9-035e-wsv70l02v0q3 d10d2q21-a4ef-12b6-008r-kkv26e05y5n9 ANSI-Commercial 6qdd03ax-0287-8w8n-18ax-7h81k3o940q6 1pge94og-6307-2y6k-33xv-1a50f3i067w5 ANSI-Medicare Part B [id number]-h6l0-4048-fwtp-[id number] ANSI-Commercial [id number]-yk94-3162-7l72-3v101l74g756 5dx7368u-fd93-3295-1u53-5u898d20z013 ANSI-Medicare Part B [id number]-eol2-[id number] ANSI-Commercial 67z2w4q8-02np-95h5-2fgk-74ej465c7er6 93i6j8y8-73zk-35j0-4jde-23au992w1dq6 ANSI-Medicare Part B [id number]-[id number] ANSI-Commercial [id number]-w953-m141d49x6f18 [id number]-r628-w728r40e7m45 ANSI-Commercial 846g8p52-d5a6-9847-ok44-093kc76jn38o 953x8l55-n5e5-8997-tf03-576ry84xa60b ANSI-Medicare Part B [id number] ANSI-Commercial 8s2cz105-i3cd-4m34-b560-81562luj511c 2l3jd569-m4vt-4g11-y373-93605bjk641d ANSI-Commercial wo69fz3i-1m56-39q1-j86a-ws22xp8191v0 sd03ii9m-5h60-02a4-c51u-hz70pv4625p9 ANSI-Medicare Part B [id number] 4w0u6x01-0ym9-2z98-py7f-qscj5a35kk44 ANSI-Commercial on24lr45-z2b3-1c83-i7ot-2z423g72043q ll18gg62-o6j2-6u35-d9qr-3f455t41467y ANSI-Commercial [id number]-8u1k-eq0b-05a4p06384m5 iq854799-14mc-6s1m-nx6p-41g5j01366v7 ANSI-Commercial cs4km1br-k474-169d-fw9q-hb891616626r rc6uu6jn-w563-490t-dr7i-gp849494561y ANSI-Medicare Part B [id number]-qis6-0ll0-2rz3-g938e101822y ANSI-Commercial y8v1392a-5996-70zm-4z92-6l05ofi93458 w4m5076n-2342-65ez-5s78-0j03dbi48105 ANSI-Commercial 9322i472-g004-7778-jq9d-38936749ov59 9176e306-m308-0849-lj8m-12444541xk63 ANSI-Medicare Part B [id number]-gz92e3p703j0 ANSI-Commercial 1k3aqy51-qy20-8l82-6s85-1z397gh511c2 8i6wtg95-yq07-3u43-5s99-0u751kk047l9 ANSI-Commercial f9b4v4p7-659c-65yl-sgj6-3855jhd8921f z4g5p9h3-631i-41uu-qgp5-1184gfh3423w ANSI-Medicare Part B [id number] [id number]-6465-7o1z-5tf5-010i441ulxku ANSI-Commercial 16zu7if3-55r7-944k-8w06-3yy694b7dpcl 02jx5rg6-93n4-766j-0d77-1uc324b6ysqe ANSI-Commercial 0qtfak27-38q6-81fl-[id number] 5kimur35-95y3-80nb-u3v2-6z1998d11282 ANSI-Medicare Part B [id number] 03sct04d-9s3l-4kr6-v0yi-e038b422x3q6 ANSI-Commercial 6ihr430e-79cd-44b7-3i23-d884b9936004 5xby951a-07av-80p8-5w15-v030f2185564 ANSI-Commercial hd9mg0s3-t034-1pcc-8907-6co67c13s908 qm9vz2s4-u604-0jtv-2779-4uf78p05k134 ANSI-Medicare Part B [id number]-v395-9138-44x6-m0jp6499zuu6 ANSI-Commercial c623861f-4cg7-46h5-ojd8-5v77666f7b25 p810964d-0vo5-52w7-leu5-7t53202b9t19 ANSI-Commercial [id number] ANSI-Commercial [id number] ANSI-Medicare Part B [id number] MEDICARE [id number] SP [id number] A MEDICARE - [facility] [id number] S [id number] [place] [employer] -O/P [id number] 18 [id number] MEDICARE -O/P [id number] 18 [id number] [facility]-EMPIRE PLAN SP MEDICARE B EXETER [id number] SP [id number] MEDICARE/NATIONAL GOVT SVCS [id number] SP [id number] [employer] [place] [id number] S [id number] MEDICARE [id number] S [id number] Problems, Conditions, and Diagnoses Code Display Name Description Problem Type Effective Dates Data Source(s) E11.9 Type 2 diabetes mellitus without complic ations TYPE 2 DIABETES MELLITUS WITHOUT COMPLICATIONS Diagnosis 11/16/2020 11:51:00 AM EDT [facility] E03.9 Hypothyroidism, unspecified HYPOTHYROIDISM, UNSPECIFIE D Diagnosis 06/24/2020 12:29:00 PM EDT [facility] Z86.010 [id number] Hx of colonic polyp Problem 11/12/2020 12:00 :00 AM EDT [facility] E11.9 Type 2 diabetes mellitus without complic ation Type 2 diabetes mellitus without complication, without long-term current use of insulin Problem 06/12/2020 12:00:00 AM EST [facility] ([facility]) Surgeries/Procedures No Information Results ID Date Data Source [id number] 12/06/2020 11:34:00 AM EDT [facility]. DISCHARGE SUMMARY, ADULTDischarge Diagno sis1. Altered mental [...] in by police with EMS from the [employer] [facility] parking lots stating thatpatient been confuse in [...] positive at 3.03, 6hours after 1st set. [employer]. Sotelo from [facility] was consulted [facility] physician and state that 3 sets of troponin is not much different fromeach other and he consi jyothi as it is flat and since patient has no chestpain, no cardiac or respiratory symptom and has normal EKG, no need totake any intervension or treatment. Troponin was repeated in morning andit is trending down. Repeat CMP show improvement in renal function neouw6P of IV fluid. Patient still have mild confusion. Dr. Chandler [facility] for possible [facility] [...] [facility], daughter was at bedside confirmed mental status athis baseline. He was also found to have VINAYAK treated with IV fluid andhypertensive urgency treated with home meds. He was also found to haveMild troponinemia: likely demend ischemia vs in setting of acute kidneyinjury, consulted motors assembler in [facility] from ER suggested no intervensionneededm to trend troponin. Troponin trended down. Echocardiogram showedEF- 50%. Patient remained asymptomatic through out his stay.Patient refused to go to [place], he was living in his friend's garage [...] 0800Resp 18 12/05 2317Weight on discharge Lb:208oz:0.LabsLaboratory Tests12/06121 0707 2215 1631 1207ChemistryGlucometer (70 - 100 [...] 48 to 72 hrsPrimary Care Provider:AYDIN Office #:[phone] ReconciledAcetaminophen With Codeine(Acetaminophen-Cod #4 Tablet) 1 EACH [...] Cross on 12/03/20 1440Last Action: No Recorded ZtpljyUbvyrjmjme90 MG TABLET 20 MG PO DAILY, Ref 0(Reported)Entered as Reported by Maryann Cross on 12/03/20 1442Last Action: No Recorded ActionLevothyroxine Sodium(Levothyroxine) 88 MCG CAPSULE 88 MG PO DAILY, Ref 0(Reported)Entered as Reported by Maryann Cross on 12/03/20 1435Last Action: No Recorded ActionLisinopril(Zestril) 20 MG TABLET 20 MG PO DAILY #30 TAB, Ref 0Prescribed by Cecy Johnson M.D. on 12/06/20Last Action: No Recorded RkzzzyPthhiwyoio03 MG TABLET 40 MG PO 1700, Ref 0(Reported)Entered as Reported by Maryann Cross on 12/03/20 1434Last Action: No Recorded ActionMetformin HCl(Metformin HCl ER) 500 MG [id number] 500 MG PO 1700, Ref 0(Reported)Entered as Reported by Maryann Cross on 12/03/20 1435Last Action: No Recorded ActionMetoprolol Mquhhhjjb14 MG TAB.ER.24H 50 MG PO DAILY, Ref 0(Reported)Entered as Reported by Maryann Cross on 12/03/20 1440Last Action: No Recorded ActionPantoprazole Bngrnt50 MG TABLET.DR 40 MG PO DAILY, Ref [...] rce(s) Supporting Document(s) ID Date Data Source [id number] 12/03/2020 05:47:00 AM EDT [employer]. RIGHT HIP RADIOGRAPHFindings/Impression: There is a moderate degenerative osteophyte of theacetabular rim. No fracture or dislocation is noted. No acute softtissue abnormality.Dictated on 12/03/20 0547 by Say Hall M.D.Transcribed on 12/04/20 0810 by Sylwia Dominguez by Say Hall M.D. on 12/04/20 1121Sign by: Say Hall M.D. Name Value Range Interpretation Code Description Data Michelle rce(s) Supporting Document(s) ID Date Data Source [id number] 12/02/2020 09:04:00 AM EDT [employer]. CHEST - APFindings: The lungs are well- [...] rce(s) Supporting Document(s) ID Date Data Source [id number] 12/02/2020 09:04:00 AM EDT [employer]. CT HEAD WITHOUT CONTRASTThe cortical sul ci and ventricles are globally proportionate andprominent. There is no acute hemorrhage, infarct, mass-effect, ormidline shift.No acute osseous abnormality.The paranasal sinuses and mastoid air cells are clear. The visualizedorbits are normal.IMPRESSION:1. MODERATE AGE-RELATED ATROPHY.2. NO ACUTE INTRACRANIAL ABNORMALITY.Dictated on 12/02/20903 by Say Hall M.D.Transcribed on 12/03/2045 by Sylwia Dominguez by Say Hall M.D. on 12/03/20 1048Sign by: Say Hall M.D. Name Value Range Interpretation Code Description Data Michelle rce(s) Supporting Document(s) ID Date Data Source [id number] 12/03/2020 01:00:00 PM EDT [employer]. Patient name: Brooke BLAKE ID: [id number]: [id number]: 75YWeight: 210 lbHeight: 68 inBSA: 2.14 q2Fronu#: [id number]/Outpt: InpatientEquipment: EPIQ CVxB/P: 140/76Referred by: Bjorn Dwyer, MDSonographer: sepideh Olguin physician: Guerrero Rojas MDExamination date: 12/03/2020Indications / History: chf.Study quality:Technically difficult ----Diagnosis/CPT Code(s): Doppler Echo Complete (49607).Echo DimensionsAo Root Yasmin (2D): 3.9 cmLA Dimen [...] by VIBENIGNOTAR TRANSSign by Guerrero Rojas M.D., [facility] on 12/03/20 1301Sign by: Guerrero Rojas M.D., [facility] Name Value Range Interpretation Code Description Data Michelle rce(s) Supporting Document(s) ID Date Data Source [id number] 12/02/2020 08:20:00 PM [facility]T [facility] Name Value Range Interpretation Code Description Data Michelle rce(s) Supporting Document(s) SARS-CoV-2 (COVID-19) RNA [Presence] in Respiratory specimen by MICHELLE with probe detection Not Detected [facility] This lab was ordered by [facility] and reported by . ID Date Data Source [id number] 11/19/2020 11:21:00 AM EDT [facility] Name Value Range Interpretation Code Description Data Michelle rce(s) Supporting Document(s) White Blood Count 3.5-10.5 Normal (applies to non-numeri c results) [facility] Red Blood Count 4.30-5.70 Normal (applies to non-numeric results) [facility] Hemoglobin 13.5-17.5 Normal (applies to non-numeric resul ts) [facility] Hematocrit 38.8-50.0 Normal (applies to non-numeric resul ts) [facility] Mean Corpuscular Volume 81.2-95.1 Normal (applies to non- numeric results) [facility] Mean Corpuscular Hgb 25.6-32.2 Normal (applies to non-num amena results) [facility] Mean Corpuscular Hgb Conc 32.0-36.0 Normal (applies to no n-numeric results) [facility] Red Cell Distribution Width 11.8-15.6 Normal (appli es to non-numeric results) [facility] Platelet Count 219 x10 3/uL 150-450 Normal (applies to non-numeric results) [facility] Mean Platelet Volume 9.4-12.4 Normal (applies to non-num amena results) [facility] Neutrophils% (Auto) 31.0-71.0 Normal (applies to non-nume huyen results) [facility] Lymphocytes% (Auto) 20.0-55.0 Normal (applies to non-nume huyen results) [facility] Monocytes% (Auto) 4.0-12.0 Normal (applies to non-numeri c results) [facility] Eosinophils% (Auto) 1.0-8.0 Normal (applies to non-nume huyen results) [facility] Basophils% (Auto) 0.0-2.0 Normal (applies to non-numeri c results) [facility] Immature Granulocytes% (Auto) 0.0-2.0 Normal (yani lies to non-numeric results) [facility] Neutrophils# (Auto) 1.50-6.20 Normal (applies to non-nume huyen results) [facility] Lymphocytes# (Auto) 1.20-4.00 Normal (applies to non-nume huyen results) [facility] Monocytes# (Auto) 0.00-0.90 Normal (applies to non-numeri c results) [facility] Eosinophils# (Auto) 0.00-0.50 Normal (applies to non-nume huyen results) [facility] Basophils# (Auto) 0.00-0.20 Normal (applies to non-numeri c results) [facility] Immature Granulocytes# (Auto) 0.00-7.00 No rmal (applies to non-numeric results) [facility] ID Date Data Source [id number] 11/19/2020 11:21:00 AM EDT [facility] Name Value Range Interpretation Code Description Data Michlele rce(s) Supporting Document(s) Sodium 142 mmol/L 136-145 Normal (applies to non-numeric resul ts) [facility] Potassium 3.5-5.1 Normal (applies to non-numeric resul ts) [facility] Chloride 104 mmol/L 98-107 Normal (applies to non-numeric resul ts) [facility] Carbon Dioxide CO2 21-32 Normal (applies to non-numer ic results) [facility] Anion Gap 5.0-16.0 Normal (applies to non-numeric resul ts) [facility] BUN 18 mg/dL 7-18 Normal (applies to non-numeric results) [facility] Creatinine,Serum 0.8-1.5 Normal (applies to non-numeric results) [facility] GFR 52 mL/min >60 Below low normal [facility] spital Glucose Level 219 mg/dL 60-99 Above high normal [facility] Reference range is only applicable when patient is fasting Note the following drug interference: Sulfasalazine Sulfapyridine Can see falsely depressed Can see falsely elevated result with up to 17% results with up to 11% decrease in measurement increase in measurement Recommend patients be collected for this test prior to administration of either drug. Calcium 8.5-10.1 Normal (applies to non-numeric resul ts) [facility] Bilirubin,Total 0.1-1.9 Normal (applies to non-numeric results) [facility] SGOT(AST) 57 U/L 15-37 Above high normal [facility] ospital Note the following drug interference: Sulfasalazine Sulfapyridine Can see falsely depressed Can see falsely elevated result with up to 10% results with up to 10% decrease in measurement increase in measurement Recommend patients be collected for this test prior to administration of either drug. SGPT(ALT) 39 U/L 12-78 Normal (applies to non-numeric resul ts) [facility] Note the following drug interference: Sulfasalazine Sulfapyridine Can see falsely depressed Can see falsely elevated result with up to 29% results with up to 10% decrease in measurement increase in measurement Recommend patients be collected for this test prior to administration of either drug. Alkaline Phosphatase 71 U/L 38-126 Normal (applies to non-num amena results) [facility] can increase Alkaline Phosp le vels up to 2 times the normal adult value. Normal values for children and adolescents are 2 to 3 times the normal adult value. Total Protein 6.0-8.2 Normal (applies to non-numeric re sults) [facility] Albumin Level 3.4-5.0 Normal (applies to non-numeric re sults) [facility] ID Date Data Source [id number] 11/19/2020 11:21:00 AM EDT [facility] Name Value Range Interpretation Code Description Data Michelle rce(s) Supporting Document(s) Magnesium 1.8-2.4 Normal (applies to non-numeric resul ts) [facility] ID Date Data Source [id number] 11/19/2020 11:21:00 AM EDT [facility] Name Value Range Interpretation Code Description Data Michelle rce(s) Supporting Document(s) Triglycerides 278 mg/dL <150 Above high normal [facility] Cholesterol 188 mg/dL 100-200 Normal (applies to non-numeric resu lts) [facility] LDL Cholesterol Calculated 106 0-130 Normal (applies to n on-numeric results) [facility] HDL Cholesterol 26 mg/dL 40-60 Below low normal [facility] Cholesterol/HDL Ratio 3.6-6.7 Above high normal [facility] ID Date Data Source [id number] 11/19/2020 11:21:00 AM EDT [facility] Name Value Range Interpretation Code Description Data Michelle rce(s) Supporting Document(s) Thyroid Stimulate Hormone TSH 0.358-3.74 Above high normal [facility] ID Date Data Source [id number] 11/19/2020 11:21:[address] [facility] Value Range Interpretation Code Description Data Michelle rce(s) Supporting Document(s) Hemoglobin A1c Above high normal [facility] Reference Range Normal: < 5.7% Pr ediabetes: 5.7-6.4% Diabetes: > 6.5% Estimated Avg Glucose 189 mg/dL 126-240 Normal (applies to non-numeric results) [facility] ID Date Data Source [id number] 06/24/2020 01:35:[address] [facility] Value Range Interpretation Code Description Data Michelle rce(s) Supporting Document(s) Hemoglobin A1c Above high normal [facility] Reference Range Normal: < 5.7% Pr ediabetes: 5.7-6.4% Diabetes: > 6.5% Estimated Avg Glucose 169 mg/dL 126-240 Normal (applies to non-numeric results) [facility] ID Date Data Source [id number] 06/24/2020 01:29:[address] [facility] Value Range Interpretation Code Description Data Michelle rce(s) Supporting Document(s) Thyroid Stimulate Hormone TSH 0.358-3.74 No rmal (applies to non-numeric results) [facility] ID Date Data Source [id number] 06/24/2020 01:29:[address] [facility] Value Range Interpretation Code Description Data Michelle rce(s) Supporting Document(s) Sodium 139 mmol/L 136-145 Normal (applies to non-numeric resul ts) [facility] Potassium 3.5-5.1 Normal (applies to non-numeric resul ts) [facility] Chloride 101 mmol/L 98-107 Normal (applies to non-numeric resul ts) [facility] Carbon Dioxide CO2 21-32 Normal (applies to non-numer ic results) [facility] Anion Gap 5.0-16.0 Normal (applies to non-numeric resul ts) [facility] BUN 28 mg/dL 7-18 Above high normal [facility] ospital Creatinine,Serum 0.8-1.5 Above high normal [facility] GFR 45 mL/min >60 Below low normal [facility] spital Glucose Level 157 mg/dL 60-99 Above high normal [facility] Reference range is only applicable when patient is fasting Note the following drug interference: Sulfasalazine Sulfapyridine Can see falsely depressed Can see falsely elevated result with up to 17% results with up to 11% decrease in measurement increase in measurement Recommend patients be collected for this test prior to administration of either drug. Calcium 8.5-10.1 Normal (applies to non-numeric resul ts) [facility] Bilirubin,Total 0.1-1.9 Normal (applies to non-numeric results) [facility] SGOT(AST) 31 U/L 15-37 Normal (applies to non-numeric resul ts) [facility] Note the following drug interference: Sulfasalazine Sulfapyridine Can see falsely depressed Can see falsely elevated result with up to 10% results with up to 10% decrease in measurement increase in measurement Recommend patients be collected for this test prior to administration of either drug. SGPT(ALT) 34 U/L 12-78 Normal (applies to non-numeric resul ts) [facility] Note the following drug interference: Sulfasalazine Sulfapyridine Can see falsely depressed Can see falsely elevated result with up to 29% results with up to 10% decrease in measurement increase in measurement Recommend patients be collected for this test prior to administration of either drug. Alkaline Phosphatase 60 U/L 38-126 Normal (applies to non-num amena results) [facility] can increase Alkaline Phosp le vels up to 2 times the normal adult value. Normal values for children and adolescents are 2 to 3 times the normal adult value. Total Protein 6.0-8.2 Normal (applies to non-numeric re sults) [facility] Albumin Level 3.4-5.0 Normal (applies to non-numeric re sults) [facility] ID Date Data Source [id number] 06/24/2020 01:00:00 PM EDT [facility] Name Value Range Interpretation Code Description Data Michelle rce(s) Supporting Document(s) White Blood Count 3.5-10.5 Normal (applies to non-numeri c results) [facility] Red Blood Count 4.30-5.70 Normal (applies to non-numeric results) [facility] Hemoglobin 13.5-17.5 Normal (applies to non-numeric resul ts) [facility] Hematocrit 38.8-50.0 Normal (applies to non-numeric resul ts) [facility] Mean Corpuscular Volume 81.2-95.1 Normal (applies to non- numeric results) [facility] Mean Corpuscular Hgb 25.6-32.2 Normal (applies to non-num amena results) [facility] Mean Corpuscular Hgb Conc 32.0-36.0 Normal (applies to no n-numeric results) [facility] Red Cell Distribution Width 11.8-15.6 Normal (appli es to non-numeric results) [facility] Platelet Count 177 x10 3/uL 150-450 Normal (applies to non-numeric results) [facility] Mean Platelet Volume 9.4-12.4 Normal (applies to non-num amena results) [facility] Neutrophils% (Auto) 31.0-71.0 Normal (applies to non-nume huyen results) [facility] Lymphocytes% (Auto) 20.0-55.0 Normal (applies to non-nume huyen results) [facility] Monocytes% (Auto) 4.0-12.0 Normal (applies to non-numeri c results) [facility] Eosinophils% (Auto) 1.0-8.0 Normal (applies to non-nume huyen results) [facility] Basophils% (Auto) 0.0-2.0 Normal (applies to non-numeri c results) [facility] Immature Granulocytes% (Auto) 0.0-2.0 Normal (yani lies to non-numeric results) [facility] Neutrophils# (Auto) 1.50-6.20 Normal (applies to non-nume huyen results) [facility] Lymphocytes# (Auto) 1.20-4.00 Normal (applies to non-nume huyen results) [facility] Monocytes# (Auto) 0.00-0.90 Normal (applies to non-numeri c results) [facility] Eosinophils# (Auto) 0.00-0.50 Normal (applies to non-nume huyen results) [facility] Basophils# (Auto) 0.00-0.20 Normal (applies to non-numeri c results) [facility] Immature Granulocytes# (Auto) 0.00-7.00 No rmal (applies to non-numeric results) [facility] Procedure Social History Code Duration Value Status Description Data Source(s ) Smoking 01/04/2021 12:00:00 AM EDT Current Smoker completed Curre nt Smoker [facility] Smoking 11/12/2020 12:00:00 AM EDT Current Smoker completed Curre nt Smoker eCW1 ([facility]) Smoking 11/12/2020 12:00:00 AM EDT Current Smoker completed Curre nt Smoker eCW1 ([facility]) Smoking 11/12/2020 12:00:00 AM EDT Current Smoker completed Curre nt Smoker eCW1 ([facility]) Smoking 11/12/2020 12:00:00 AM EDT Current Smoker completed Curre nt Smoker eCW1 ([facility]) Smoking 11/12/2020 12:00:00 AM EDT Current Smoker completed Curre nt Smoker eCW1 ([facility]) Smoking 06/12/2020 12:00:00 AM EST Current Smoker completed Curre nt Smoker eCW1 ([facility]) Smoking 06/12/2020 12:00:00 AM EST Current Smoker completed Curre nt Smoker eCW1 ([facility]) Smoking 06/12/2020 12:00:00 AM EST Current Smoker completed Curre nt Smoker eCW1 ([facility]) Smoking 06/12/2020 12:00:00 AM EST Current Smoker completed Curre nt Smoker eCW1 ([facility]) Smoking 06/12/2020 12:00:00 AM EST Current Smoker completed Curre nt Smoker eCW1 ([facility]) Smoking 06/12/2020 12:00:00 AM EST Current Smoker completed Curre nt Smoker eCW1 ([facility]) Vital Signs ID Date Data Source UNK Name Value Range Interpretation Code Description Data Source(s) Body weight 209.4 [lb_av] 209.4 [lb_av] eCW1 ([facility], 1928[facility]1983) Body weight 94.98 kg 94.98 kg eCW1 ([facility]) Body height 64 [in_i] 64 [in_i] eCW1 ([facility]) Body mass index (BMI) [Ratio] 35.94 kg/m2 35.94 kg/m2 W1 ([facility]) Heart rate 83 /min 83 /min eCW1 ([facility]) Respiratory rate 18 /min 18 /min eCW1 ([facility]) Body temperature 97.1 [degF] 97.1 [degF] eCW1 ( [facility]) Systolic blood pressure 136 mm[Hg] 136 mm[Hg] e CW1 ([facility]) Diastolic blood pressure 89 mm[Hg] 89 mm[Hg] eCW1 ([facility]) Body weight 211.4 [lb_av] 211.4 [lb_av] eCW1 ([facility], 1928[facility]) Body weight 95.89 kg 95.89 kg eCW1 ([facility]) Body height 64 [in_i] 64 [in_i] eCW1 ([facility]) Body mass index (BMI) [Ratio] 36.28 kg/m2 36.28 kg/m2 eCW1 ([facility]) Heart rate 77 /min 77 /min eCW1 ([facility]) Respiratory rate 20 /min 20 /min eCW1 ([facility]) Body temperature 97.2 [degF] 97.2 [degF] eCW1 ( [facility]) Systolic blood pressure 121 mm[Hg] 121 mm[Hg] e CW1 ([facility]) Diastolic blood pressure 80 mm[Hg] 80 mm[Hg] eCW1 ([facility]) Body weight 217 [lb_av] 217 [lb_av] eCW1 ([facility]) Body height 64 [in_i] 64 [in_i] eCW1 ([facility]) Body mass index (BMI) [Ratio] 37.24 kg/m2 37.24 kg/m2 eCW1 ([facility]) Heart rate 66 /min 66 /min eCW1 ([facility]) Respiratory rate 18 /min 18 /min eCW1 ([facility]) Body temperature 97.7 [degF] 97.7 [degF] eCW1 ( [facility]) Systolic blood pressure 128 mm[Hg] 128 mm[Hg] e CW1 ([facility]) Diastolic blood pressure 78 mm[Hg] 78 mm[Hg] eCW1 ([facility]) Patient Treatment Plan of Care Planned Activity Planned Date Details Description Data Source (s) tramadol hydrochloride 50 MG Oral Tablet 01/04/2021 12:00:00 AM EDT eCW1 ([facility]) Acetaminophen 300 MG / Codeine Phosphate 60 MG Oral Ta blet 12/08/2020 12:00:00 AM EDT eCW1 ([facility]) Acetaminophen 300 MG / Codeine Phosphate 60 MG Oral Ta blet 12/08/2020 12:00:00 AM EDT eCW1 ([facility]) Lisinopril 20 MG Oral Tablet [Zestril] 12/06/2020 12:00:00 AM EDT [facility] 24 HR Metformin hydrochloride 500 MG Extended Release Oral Tablet 11/17/2020 12:00:00 AM EDT eCW1 ([facility]) 24 HR Metformin hydrochloride 500 MG Extended Release Oral Tablet 11/17/2020 12:00:00 AM EDT eCW1 ([facility]) Hydrocortisone butyrate 1 MG/ML Topical Solution 11/12/2020 12:00:0 0 AM EDT eCW1 ([facility]) Hydrocortisone butyrate 1 MG/ML Topical Solution 11/12/2020 12:00:0 0 AM EDT eCW1 ([facility]) Hydrocortisone butyrate 1 MG/ML Topical Solution 11/12/2020 12:00:0 0 AM EDT eCW1 ([facility]) Acetaminophen 300 MG / Codeine Phosphate 60 MG Oral Ta blet 11/03/2020 12:00:00 AM EDT eCW1 ([facility]) Hydrochlorothiazide 12.5 MG / Lisinopril 20 MG Oral Tablet [facility] [place].
--- NOTE | 2021-02-11 13:33 | REP ---
INDICATION: Altered Mental Status. COMPARISON: 12/12/2018 TECHNIQUE: An AP portable view of the chest was obtained. FINDINGS: Cardiac leads are noted. A right shoulder arthroplasty is partially visualized. Degenerative changes about the left shoulder is also noted. No other abnormality of visualized bony thorax is appreciated. 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 There is a somewhat shallow inspiratory effort with some crowding of the bronchovascular markings at the bases but no acute parenchymal opacification or effusion is identified. The heart is not enlarged. Mild ectasia of the thoracic aorta with calcification in the aortic knob is again noted. IMPRESSION: No definite acute change is identified. <Electronically signed by Ad Moeller > 02/11/21 6092
[2021-02-11 13:46] LABS: BASO % 0.5 % (0.0-1.0); EOS # 0.1 10^3/uL (0.0-0.5); EOS % 0.9 % (0.0-3.0); HEMATOCRIT 47.3 % (42.0-52.0); HEMOGLOBIN 15.6 g/dl (13.5-17.5); LYMPH # 1.9 10^3/uL (1.5-5.0); LYMPH % 24.7 % (24.0-44.0); MEAN CORPUSCULAR HEMOGLOBIN 31.3 pg (27.0-33.0); MEAN CORPUSCULAR VOLUME 94.8 fl (80.0-96.0); MONO # 0.6 10^3/uL (0.0-0.8); MONO % 8.3 % (2.0-8.0); NEUTROPHILS # 4.9 10^3/uL (1.5-8.5); NEUTROPHILS % 65.3 % (36.0-66.0); PLATELET COUNT, AUTOMATED 187 10^3/uL (150-450); RED BLOOD COUNT 4.99 10^6/uL (4.30-6.10); WHITE BLOOD COUNT 7.5 10^3/uL (4.0-10.0)
[2021-02-11 13:47] LABS: VENOUS BASE EXCESS -1.6 (-2.0-2.0); VENOUS O2 SATURATION 43.5 % (60.0-80.0); VENOUS PARTIAL PRESSURE CO2 48.8 mmHg (38.0-50.0); VENOUS PARTIAL PRESSURE O2 24.4 mmHg (30.0-50.0); VENOUS PH 7.327 UNITS (7.330-7.430); VENOUS STANDARD HCO3 21.8 MEQ/L; VENOUS TOTAL CO2 26.5 MEQ/L (24.0-28.0)
[2021-02-11] MEDS: NS 1,000 ML IV SCH ×2 (13:48→16:39)
[2021-02-11 13:58] LABS: OSMOLALITY SERUM 297 MOSM/KG (280-301)
[2021-02-11 14:31] LABS: BLOOD UREA NITROGEN 23 MG/DL (7-18); GLOMERULAR FILTRATION RATE 52.3 (>42); GLUCOSE, FASTING 141 MG/DL (70-100); POTASSIUM SERUM 4.5 MEQ/L (3.5-5.1); SODIUM LEVEL 139 MEQ/L (136-145)
[2021-02-11 14:32] LABS: ALT/SGPT 28 IU/L (0-32); BILIRUBIN,DIRECT 0.2 MG/DL (0.0-0.2); BILIRUBIN,TOTAL 0.7 MG/DL (0.2-1.0); CARBON DIOXIDE LEVEL 27 mmol/L (20-29); CHLORIDE LEVEL 107 MEQ/L (98-107); CK-MB VALUE MASS 1.7 NG/ML (<3.6); CPK CREATINE PHOSPHOKINASE 72 U/L (39-308); MB/CK RELATIVE INDEX 2.36 (< OR =4)
[2021-02-11 14:33] LABS: ALBUMIN 4.1 GM/DL (3.2-5.2); TOTAL PROTEIN 7.4 GM/DL (6.4-8.2); TROPONIN I < 0.02 NG/ML (< 0.10)
[2021-02-11] MEDS ORDERED: ISOVUE-370 76% 100ML VIAL As Ordered ONE (14:55)
[2021-02-11 15:30] VITALS: BP 157/79
--- NOTE | 2021-02-11 15:30 | REPVR ---
PROCEDURE INFORMATION: Exam: CT Angiography Head With Contrast, Arteriography Exam date and time: 02/11/2021 2:46 PM Age: 75 years old Clinical indication: Other: AMS; Additional info: Altered mental status TECHNIQUE: Imaging protocol: Computed tomography angiography of the head with contrast. Exam focused on the arteries. 3D rendering (Not supervised by radiologist): MIP and/or 3D reconstructed images were created by the technologist. Radiation optimization: All CT scans at this facility use at least one of these dose optimization techniques: automated exposure control; mA and/or kV adjustment per patient size (includes targeted exams where dose is matched to clinical indication); or iterative reconstruction. Contrast material: ISOVUE 370; Contrast volume: 75 ml; Contrast route: INTRAVENOUS (IV); COMPARISON: CT Head without contrast 02/11/2021 12:36 PM FINDINGS: ANTERIOR CIRCULATION: Right internal carotid artery: Unremarkable. Intracranial segment is patent with no significant stenosis. No aneurysm. Right middle cerebral artery: Unremarkable. No occlusion or significant stenosis. No aneurysm. Right anterior cerebral artery: Unremarkable. No occlusion or significant stenosis. No aneurysm. Left internal carotid artery: Unremarkable. Intracranial segment is patent with no significant stenosis. No aneurysm. Left middle cerebral artery: Unremarkable. No occlusion or significant stenosis. No aneurysm. Left anterior cerebral artery: Unremarkable. No occlusion or significant stenosis. No aneurysm. POSTERIOR CIRCULATION: Right vertebral artery: Unremarkable. No occlusion or significant stenosis. No aneurysm. Left vertebral artery: Unremarkable. No occlusion or significant stenosis. No aneurysm. Basilar artery: Unremarkable. No occlusion or significant stenosis. No aneurysm. Right posterior cerebral artery: Unremarkable. No occlusion or significant stenosis. No aneurysm. Left posterior cerebral artery: Unremarkable. No occlusion or significant stenosis. No aneurysm. IMPRESSION: No large vessel stenosis or occlusion. Electronically signed by: Amado Villalobos On 02/11/2021 15:30:07 PM
--- NOTE | 2021-02-12 07:49 | ECGEPIP ---
[facility] - ED Test Date: 2021-02-11 Pat Name: DOROTHY BLAKE Department: Room: - Gender: Male Communication Electronic Technician: EFFIE : 1945 Requested By: Paris Dubose Order Number: [id number] Reading MD: Juan Allen Measurements Intervals [place] Rate: 70 P: 27 HI: 150 QRS: -78 QRSD: 150 T: 37 QT: 450 QTc: 486 Interpretive Statements Normal sinus rhythm Right bundle branch block Left anterior fascicular block Minimal voltage criteria for LVH, may be normal variant ( R in aVL ) Septal infarct , age undetermined NO PRIORS FOR COMPARISON Electronically Signed on 02-12-2021 7:49:38 EST by Juan Allen
== END 2021-02-11 16:43 | disposition home or self-care (01) ==
LOC: M ED 11:50
DX: F03.90 Unspecified dementia, unspecified severity, without behavioral disturbance, psychotic disturbance, mood disturbance, and anxiety (principal); R94.31 Abnormal electrocardiogram [ECG] [EKG]; I12.9 Hypertensive chronic kidney disease with stage 1 through stage 4 chronic kidney disease, or unspecified chronic kidney disease; N18.32 Chronic kidney disease, stage 3b; E78.5 Hyperlipidemia, unspecified; E03.9 Hypothyroidism, unspecified; Z95.1 Presence of aortocoronary bypass graft; Z79.82 Long term (current) use of aspirin; Z79.899 Other long term (current) drug therapy
CPT/HCPCS: 70450; 70496; 71045; 80048; 80076; 81001; 82140; 82550; 82553; 82803; 83605; 83930; 84443; 84484; 85025; 87040; 93005; 93041; 94760; 96360; 96361; 99285; Q9967

== ENCOUNTER → 2021-05-13 | Outpatient (REF) | payer MEDICARE, OTHER ==
[~2021-05-13] MED LIST changes: -FENO200C PO; +FENO200C19 PO; -MOME50SP NARES; +NASO50SP3 NARES
[2021-05-13 16:40] LABS: ALBUMIN 3.4 GM/DL (3.2-5.2); BILIRUBIN,TOTAL 0.4 MG/DL (0.2-1.0); CALCIUM LEVEL 9.2 MG/DL (8.8-10.2); CHOLESTEROL RISK RATIO 2.829 (<5); CREATININE FOR GFR 1.47 MG/DL (0.70-1.30); GLOMERULAR FILTRATION RATE 49.3 (>42); POTASSIUM SERUM 4.9 MEQ/L (3.5-5.1); THYROID STIMULATING HORMONE 1.88 uIU/ML (0.358-3.740); TOTAL PROTEIN 6.6 GM/DL (6.4-8.2)
[2021-05-13 17:24] LABS: HEMOGLOBIN A1c 6.4 %
== END ==
LOC: M SFHCCLAY 10:00
PROVIDERS: ATTEND Family Medicine
DX: E03.9 Hypothyroidism, unspecified (principal); E78.5 Hyperlipidemia, unspecified; E11.9 Type 2 diabetes mellitus without complications

== ENCOUNTER → 2022-03-07 | Outpatient (CLI) | payer MEDICARE, OTHER ==
[~2022-03-07] MED LIST changes: +CLOP75TA99 PO; -PLAV1TAB2 PO
== END ==
LOC: M CLY 14:03
PROVIDERS: ATTEND Family Medicine
DX: R06.02 Shortness of breath (principal)

== ENCOUNTER → 2023-04-04 | Outpatient (REF) | payer MEDICARE, OTHER, BC ==
[~2023-04-04] MED LIST changes: -FENO200C19 PO; +FENO200C24 PO
[2023-04-04 17:27] LABS: APPEARANCE, URINE CLOUDY (CLEAR); BACTERIA, URINE AUTO 2+ (NEGATIVE); BILIRUBIN, URINE AUTO NEGATIVE (NEGATIVE); BLOOD, URINE BLOOD 2+ (NEGATIVE); COLOR, URINE YELLOW (YELLOW); GLUCOSE, URINE (UA) AUTO NEGATIVE (NEGATIVE); KETONE, URINE AUTO NEGATIVE (NEGATIVE); LEUKOCYTE ESTERASE, URINE AUTO 3+ (NEGATIVE); MUCUS, URINE SMALL (NEGATIVE); NITRITE, URINE AUTO POSITIVE (NEGATIVE); PROTEIN, URINE AUTO 1+ mg/dL (NEGATIVE); RBC, URINE AUTO 27 /HPF (0-3); SPECIFIC GRAVITY URINE AUTO 1.014 (1.002-1.035); SQUAMOUS EPITHELIAL CELL UR AU 2 /HPF (0-6); UROBILINOGEN, URINE AUTO 0.2 mg/dL (0.0-2.0); WBC, URINE AUTO TNTC /HPF (0-3)
== END ==
LOC: M SFHCCLAY 16:56
PROVIDERS: ATTEND Family Medicine
DX: R82.90 Unspecified abnormal findings in urine (principal)

== ENCOUNTER → 2023-07-04 | Outpatient (REF) | payer MEDICARE, OTHER ==
[2023-07-04 17:55] LABS: HEMATOCRIT 45.5 % (42.0-52.0); HEMOGLOBIN 14.8 g/dl (13.5-17.5); MEAN CORPUSCULAR HEMOGLOBIN 31.2 pg (27.0-33.0); MEAN CORPUSCULAR HGB CONC 32.5 g/dl (32.0-36.5); MEAN CORPUSCULAR VOLUME 95.8 fl (80.0-96.0); PLATELET COUNT, AUTOMATED 207 10^3/uL (150-450); RED BLOOD COUNT 4.75 10^6/uL (4.30-6.10); WHITE BLOOD COUNT 9.5 10^3/uL (4.0-10.0)
[2023-07-04 18:19] LABS: BILIRUBIN,TOTAL 0.5 MG/DL (0.3-1.2); CALCIUM LEVEL 9.9 MG/DL (8.3-10.6); CREATININE FOR GFR 1.25 MG/DL (0.70-1.30); GLOMERULAR FILTRATION RATE 59.2 (>35); POTASSIUM SERUM 4.5 MMOL/L (3.5-5.1); TOTAL PROTEIN 7.5 G/DL (5.7-8.2)
[2023-07-04 18:21] LABS: THYROID STIMULATING HORMONE 4.582 uIU/ML (0.55-4.78)
== END ==
LOC: M SFHCCLAY 14:39
PROVIDERS: ATTEND Family Medicine
DX: N18.32 Chronic kidney disease, stage 3b (principal); E11.22 Type 2 diabetes mellitus with diabetic chronic kidney disease; E03.9 Hypothyroidism, unspecified